=== PATIENT | male | born 1965 | race Caucasian/White ===

== ENCOUNTER → 2017-06-26 17:39 | Outpatient (CLI) | payer BC, SELFPAY ==
--- NOTE | 2017-06-26 | XR_ITS ---
XR shoulder RT min 2V Ordering Physician: Mer Bynum Patient Age: 52 years: Male HISTORY: ITS.REASON: PULLING INJURY TECHNIQUE: 3 views right shoulder COMPARISON : AP chest radiograph FINDINGS Right shoulder is intact no fracture evident. The glenohumeral joint intact. Humeral head and neck intact. Glenoid unremarkable. Mild AC joint arthropathy and irregularity which is perhaps very slightly more evident than on 2014 CXR. Otherwise Upper right lung and apex clear scapula unremarkable IMPRESSION: No fracture nor dislocation Glenohumeral joint is intact. Mild degenerative changes AC joint.
== END ==
PROVIDERS: PCP Nurse Practitioner Family; Visit Provider Nurse Practitioner Family
DX: M25.511 Pain in right shoulder (principal); M75.101 Unspecified rotator cuff tear or rupture of right shoulder, not specified as traumatic
CPT/HCPCS: 73030

== ENCOUNTER 2017-11-05 03:17 | Observation (INO) ==
--- NOTE | 2017-11-05 03:27 | Emergency Department Note ---
ED Disposition Clinical Impression: Lumbar radiculopathy Disposition: Still a Patient Condition on Discharge: Fair - Critical Care Critical Care Time: No Attestation: On , the high probability of a clinically significant, sudden or life threatening deterioration of the following system(s) required my full and direct attention, intervention and personal management. The time I documented below is in addition to time spent performing reported procedures but includes the following listed in this critical care notation. Medical Decision Making - Yunior Inquiry Pt receiving controlled substance: Yes Yunior was queried for this patient: Yes Reference #:: [id number] Risks and benefits of using a controlled substance: were not discussed with pt by me Comment: 3 rxs for gabapentin Vital Signs: 11/05/17 03:17 11/05/17 04:39 Temperature 98.9 F 98.5 F Temperature Source Oral Oral Pulse Rate 89 Pulse Rate [Right Radial] 87 Respiratory Rate 20 20 Blood Pressure 146/86 Blood Pressure [Right Arm] 184/93 Blood Pressure Mean [Right Arm] 123 02 Sat by Pulse Oximetry 100 Oxygen Delivery Method Room Air - Lab Data Lab Results 11/05/17 03:05: WBC 9.6, RBC 4.41 L, Hgb 13.4 L, Hct 37.7 L, MCV 85.5, MCH 30.5 , MCHC 35.7 H, RDW 13.0, Plt Count 306, MPV 7.7, Neut % (Auto) 71.8, Lymph % ( Auto) 21.6, Gray % (Auto) 6.1, Eos % (Auto) 0.3, Baso % (Auto) 0.2, Neut # (Auto ) 6.9, Lymph # (Auto) 2.1, Gray # (Auto) 0.6, Eos # (Auto) 0.0, Baso # (Auto) 0.0 11/05/17 03:05: Sodium 139, Potassium 4.3, Chloride 102, Carbon Dioxide 24, Anion Gap 17.3 H, BUN 26 H, Creatinine 1.22, Estimated Creat Clear 92, Estimated GFR 63, Est GFR ( Amer) 76, Glucose 232 H, Calcium 9.5 Result diagrams: 11/05/17 03:05 11/05/17 03:05 Orders (Tests/Meds): ED MEDICATIONS Generic Name Dose Route Start Last Admin Trade Name Freq PRN Reason Stop Dose Admin Gabapentin 300 mg 11/05/17 09:00 Neurontin 300mg Capsule PO 12/05/17 08:59 TID DONNA Discontinued Medications Generic Name Dose Route Start Last Admin Trade Name Jolly DUNCAN Reason Stop Dose Admin Hydromorphone HCl 1 mg 11/05/17 03:39 11/05/17 03:53 Dilaudid 2mg/Ml Syringe IV 11/05/17 03:40 1 mg ONCE ONE Administration Hydromorphone HCl 1 mg 11/05/17 04:14 11/05/17 04:23 Dilaudid 2mg/Ml Syringe IV 11/05/17 04:15 1 mg ONCE ONE Administration Methylprednisolone Sodium Succinate 125 mg 11/05/17 04:09 11/05/17 04:23 Solu-Medrol 125mg/2ml Vial IV 11/05/17 04:10 125 mg ONCE ONE Administration Ondansetron HCl 4 mg 11/05/17 03:39 11/05/17 03:53 Zofran 4mg/2ml Vial IV 11/05/17 03:40 4 mg ONCE ONE Administration Orphenadrine Citrate 60 mg 11/05/17 03:41 11/05/17 03:53 Norflex 60mg/2ml Vial IV 11/05/17 03:42 60 mg ONCE ONE Administration - Physician Consults Physician Consulted: Yobany Reyes Time: 04:19 Reason -: Admission Comment/Response: Agrees to admit the patient to the hospital. We discussed the patient's clinical information, including history, exam, laboratory and radiology results and ED course. Per hospital procedure, I will write temporary bridge inpatient orders on the patient. Specific orders requested by the admitting physician: Pain control, sliding scale insulin, steroids, gabapentin General Adult HPI - General Chief complaint: Back Pain/Injury Stated complaint: back pain Time Seen by Provider: 11/05/17 03:25 Mode of Arrival: EMS Limitations: No Limitations Description of Symptoms (Recalled from ER Triage Doc. by RN): pt awoke yesterday morning with back pain, was seen at [facility] and diagnosed with sciatic pain. pt has tried 2 lortabs and a muscle relaxer at home with no relief. no injury. - History of Present Illness HPI narrative: Brought in by ambulance for back and left leg pain. Patient says that he sneezed this morning at 5 AM and developed severe pain in his lower back going down his left leg to his left foot. Says that it feels like "[id number]" and additionally also describes it as a "pinched nerve". Prior history of lumbar disc disease with 2 prior back surgeries years ago. He does not remember what the years were. Has had problems with back and leg pain before, but not recently. Says that normally when he gets up in the morning he will cough which will cause some increased back pain but it resolves fairly quickly. He is not currently on any treatment for his back. The incident occurred today while at work. By 7 AM he was in severe pain and went to [facility] emergency department. He says he was there for at least 8 hours. He says he was given 2 injections of morphine which did not help at all and then he was given another medication after that which put him to sleep. He says that he was feeling better by the time of discharge. Severe pain recurred at 2 AM tonight. No loss of bowel or bladder control. No numbness or weakness. - Related Data Home Medications Medication Instructions Recorded Confirmed Atorvastatin Calcium [Atorvastatin 10 mg PO DAILY 11/05/17 11/05/17 10mg Tab] Gabapentin [Gabapentin 100mg Cap] 100 - 200 mg PO DAILY 11/05/17 11/05/17 Hydrocodone/Acetaminophen 1 - 2 tab PO Q4HP PRN 11/05/17 11/05/17 [Hydrocodone-Acetamin 5-325 mg] Insulin Glargine,Hum.rec.anlog 35 unit SQ DAILY 11/05/17 11/05/17 [Lantus Insulin 100units/mL 10mL vial] Lidocaine 1 each TP BIDP PRN 11/05/17 11/05/17 Lisinopril [Lisinopril 20mg Tab] 20 mg PO DAILY 11/05/17 11/05/17 Metformin HCl [Metformin 500mg 1,000 mg PO BID 11/05/17 11/05/17 Tablet] Methocarbamol [Methocarbamol 500mg 1,000 mg PO QID 11/05/17 11/05/17 Tablet] Omeprazole [Omeprazole 20mg Tab] 20 mg PO DAILY 11/05/17 11/05/17 Sitagliptin Phosphate [Januvia] 100 mg PO DAILY 07/08/18 07/08/18 Allergies Allergy/AdvReac Type Severity Reaction Status Date / Time Penicillins [PENICILLINS] Allergy Intermediate I-HIVES Verified 11/05/17 03:21 [facility] History I have reviewed the patient's past medical history: Yes 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: Reports:: Diabetes Mellitus Type 2 Denies:: Cancer, Diabetes Mellitus Type 1, MRSA Amputation: No Fractures: No - Social History Smoking Status: Never smoker Alcohol Intake: never - Psychiatric History Expresses thoughts of harming self/others: None Suicide Plan Description: No Plan ROS Obtained: Yes Systems reviewed as appropriate & no additional complaints - Constitutional Constitutional: Denies fever(s) - Musculoskeletal Musculoskeletal: Reports back pain, Reports other (Left leg pain) - Neurologic Neurologic: Denies numbness, Denies weakness Physical Exam - General General appearance: alert, in distress Comment: Moaning, whimpering - Chest Chest inspection: Present: normal inspection - Respiratory Respiratory exam: Present: normal lung sounds bilaterally. Absent: respiratory distress - Cardiovascular Cardiovascular exam: Present: regular rate, normal rhythm - Abdominal Exam Abdominal exam: Present: soft. Absent: tenderness, guarding, rebound, pulsatile mass - Extremities Exam Extremities exam: Present: normal inspection, full ROM, other (Normal pedal pulses) - Neurological Exam Neurological exam: Present: alert, oriented X3. Absent: motor sensory deficit
[2017-11-05 03:53] LABS: Basophils % 0.2 % (0.1-2.0); Eosinophils % 0.3 % (0.1-12.0); Hematocrit 37.7 % (42.0-52.0); Hemoglobin 13.4 g/dL (14.1-18.0); Lymphocytes # 2.1 K/mm3 (0.7-4.5); Lymphocytes % 21.6 K/mm3 (10-50); Mean Corpuscular HGB Conc 35.7 g/dL (31.8-35.4); Mean Corpuscular Hemoglobin 30.5 pg (27.0-31.2); Mean Corpuscular Volume 85.5 fl (80-94); Mean Platelet Volume 7.7 fl (7.4-10.4); Monocytes # 0.6 K/mm3 (0.1-1.0); Monocytes % 6.1 % (1.7-9.3); Neutrophils # 6.9 K/mm3 (1.8-7.8); Neutrophils % 71.8 % (37.0-80.0); Platelet Count 306 K/mm3 (142-424); Red Blood Count 4.41 M/mm3 (4.60-6.20); White Blood Count 9.6 K/mm3 (4.8-10.8)
[2017-11-05 03:56] LABS: Anion Gap 17.3 mEq/L (5-15); Calcium 9.5 mg/dL (8.5-10.1); Potassium 4.3 mmoL/L (3.5-5.1)
--- NOTE | 2017-11-05 07:07 | History & Physical Report ---
*Admission Date: 11/05/17 *Chief complaint: Severe back pain radiating down left leg *History of present illness: 52-year-old male with history of prior lumbar disc herniations requiring surgery presented to the emergency department early this morning with complaint of neck pain that radiated into the left leg with associated numbness and tingling down to the level of the foot. Symptoms began after patient sneezed the day prior. After sneezing he had onset of severe pain and actually initially sought treatment at [facility] in [place]. After an 8 hour emergency department stay there patient was treated with some pain medication which did improve symptoms slightly and he was discharged home. At approximately 2 AM this morning he awoke with recurrence of severe pain and sought treatment at our emergency department. In our emergency department he was given intravenous Dilaudid as well as muscle relaxants. He continued to have a significant level of pain and decision was made to admit for pain control. Since admission his pain has eased some. He describes both a cramping like sensation in the left hip as well as sensation as if the bone is rubbing bone. He continues to endorse numbness in the top of the foot. [facility] History I have reviewed the patient's past medical history: Yes 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: Reports:: Diabetes Mellitus Type 2, Hyperlipidemia, Hypertension Denies:: Cancer, Diabetes Mellitus Type 1, MRSA Laterality Cases: Bilateral: Other Other Surgeries: Yes: Other (BACK SURGERY X2) Amputation: No Fractures: No - *Social History Educational Level: Completed High School Smoking Status: Never smoker Alcohol Intake: never Occupational Status: employed Housing: house Household Members: spouse - Psychiatric History Expresses thoughts of harming self/others: None Suicide Plan Description: No Plan *Family Hx:: Diabetes, Hyperlipidemia, Hypertension, Kidney Disease Review of Systems - Review of Systems Review of systems:: pertinent systems reviewed and negative unless documented below - *Gastrointestinal Denies change in stools - *Genitourinary Denies difficulty urinating, Denies decreased urination, Denies urinary frequency, Denies urinary incontinence, Denies urinary urgency - *Neurologic Reports numbness, Denies weakness Meds Home Medications Medication Instructions Recorded Confirmed Type Atorvastatin Calcium [Atorvastatin 10 mg PO DAILY 11/05/17 11/05/17 History 10mg Tab] Gabapentin [Gabapentin 100mg Cap] 100 - 200 mg PO DAILY 11/05/17 11/05/17 History Hydrocodone/Acetaminophen 1 - 2 tab PO Q4HP PRN 11/05/17 11/05/17 History [Hydrocodone-Acetamin 5-325 mg] Insulin Glargine,Hum.rec.anlog 35 unit SQ HS 11/05/17 11/05/17 History [Lantus Insulin 100units/mL 10mL vial] Lidocaine 1 each TP BIDP PRN 11/05/17 11/05/17 History Lisinopril [Lisinopril 20mg Tab] 20 mg PO DAILY 11/05/17 11/05/17 History Metformin HCl [Metformin 500mg 1,000 mg PO BID 11/05/17 11/05/17 History Tablet] Methocarbamol [Methocarbamol 500mg 1,000 mg PO QID 11/05/17 11/05/17 History Tablet] Omeprazole [Omeprazole 20mg Tab] 20 mg PO DAILY 11/05/17 11/05/17 History Sitagliptin Phosphate [Januvia] 100 mg PO DAILY 11/05/17 11/05/17 History Allergies Allergy/AdvReac Type Severity Reaction Status Date / Time Penicillins [PENICILLINS] Allergy Intermediate I-HIVES Verified 11/05/17 05:27 Exam Vital signs and Labs for Last 24 Hours: Temp Pulse Resp BP Pulse Ox 97.8 F 72 18 143/79 98 11/05/17 05:16 11/05/17 05:16 11/05/17 05:16 11/05/17 05:16 11/05/17 05:16 Laboratory Results - last 24 hr 11/05/17 03:05: WBC 9.6, RBC 4.41 L, Hgb 13.4 L, Hct 37.7 L, MCV 85.5, MCH 30.5 , MCHC 35.7 H, RDW 13.0, Plt Count 306, MPV 7.7, Neut % (Auto) 71.8, Lymph % ( Auto) 21.6, Howard % (Auto) 6.1, Eos % (Auto) 0.3, Baso % (Auto) 0.2, Neut # (Auto ) 6.9, Lymph # (Auto) 2.1, Howard # (Auto) 0.6, Eos # (Auto) 0.0, Baso # (Auto) 0.0 11/05/17 03:05: Sodium 139, Potassium 4.3, Chloride 102, Carbon Dioxide 24, Anion Gap 17.3 H, BUN 26 H, Creatinine 1.22, Estimated Creat Clear 92, Estimated GFR 63, Est GFR ( Amer) 76, Glucose 232 H, Calcium 9.5 11/05/17 06:11: POC Glucose 235 H I & O for Last 24 hours: Intake & Output 11/02/17 11/03/17 11/04/17 11/05/17 11:59 11:59 11:59 11:59 Weight 198 lb 1 oz Narrative: Patient does not appear to be in severe pain although he is restless. He is able to turn from side to side in the bed. He is able to move the left lower extremity. He has symmetric patellar and Achilles reflexes. Sensation is intact in the right leg. He has decreased sensation in the left leg on the dorsal foot. Strength assessment was not performed due to the patient's pain. H&P: Result - Labs Labs: Short CBC 11/05/17 Range/Units 03:05 WBC 9.6 (4.8-10.8) K/mm3 Hgb 13.4 L (14.1-18.0) g/dL Hct 37.7 L (42.0-52.0) % Plt Count 306 (142-424) K/mm3 BMP 11/05/17 03:05 Sodium 139 Potassium 4.3 Chloride 102 Carbon Dioxide 24 BUN 26 H Creatinine 1.22 Glucose 232 H Calcium 9.5 Assessment and Plan (1) Lumbar radiculopathy Current visit: Yes Status: Acute Category: Medical Code(s): M54.16 - Radiculopathy, lumbar region - Assessment and plan all Dx Assessment and Plan for all problems:: Patient has been admitted. He will be started on gabapentin 100 mg 3 times daily. Give another dose of steroid this afternoon. Sliding scale insulin has been ordered for his diabetes. Continue oral and intravenous narcotics. Continue muscle relaxants. I told the patient he is allowed to get out of bed but would recommend a reclined position in the bed for recovery purposes
--- NOTE | 2017-11-05 13:56 | Pharmacy Consult Notes ---
[facility] Pharmacy VTE Monitoring - Patient Demographics Admission date: 11/05/17 Report Date: 11/05/17 Time: 13:55 Allergies/Adverse Reactions: Patient Allergies Penicillins [PENICILLINS] Allergy (Intermediate, Verified 11/05/17 05:27) I-HIVES Height: 1.68 m Weight: 89.84 kg Patient Problems: Current Active Problems Lumbar radiculopathy (Acute) - VTE Risk Labs: VTE Related Lab Results Hgb 13.4 g/dL (14.1-18.0) L 11/05/17 03:05 Hct 37.7 % (42.0-52.0) L 11/05/17 03:05 Plt Count 306 K/mm3 (142-424) 11/05/17 03:05 BUN 26 mg/dL (7-18) H 11/05/17 03:05 Creatinine 1.22 mg/dL (0.70-1.30) 11/05/17 03:05 Estimated Creat Clear 92 mL/min (0-300) 11/05/17 03:05 Was VTE Risk Assessment Performed: Yes VTE Score: 2 VTE Risk Level: Low Risk - Prophylaxis Location of Applied Device: Bilateral Lower Extremeties - VTE Diagnosis Confirmed Comment: OLIVERIO PAYNE ORDERED
[2017-11-06 07:20] VITALS: BP 107/64
--- NOTE | 2017-11-06 08:17 | Discharge Summary ---
General - General Admission date:: 11/05/17 Discharge date: 11/06/17 HPI HPI: 52-year-old male with history of prior lumbar disc herniations requiring surgery presented to the emergency department early this morning with complaint of neck pain that radiated into the left leg with associated numbness and tingling down to the level of the foot. Symptoms began after patient sneezed the day prior. After sneezing he had onset of severe pain and actually initially sought treatment at [facility] in [place]. After an 8 hour emergency department stay there patient was treated with some pain medication which did improve symptoms slightly and he was discharged home. At approximately 2 AM this morning he awoke with recurrence of severe pain and sought treatment at our emergency department. In our emergency department he was given intravenous Dilaudid as well as muscle relaxants. He continued to have a significant level of pain and decision was made to admit for pain control. Since admission his pain has eased some. He describes both a cramping like sensation in the left hip as well as sensation as if the bone is rubbing bone. He continues to endorse numbness in the top of the foot. Hospital Course Hospital Course: Patient was admitted, intravenous narcotics since steroids were given, he was continued on his medication and rest was obtained in the hospital. He improved slightly, and was able to limp around to go to the restroom as well as have minimal pain when he was in a reclining position with his hip slightly flexed. This morning he has improved somewhat, please see my discharge exam noted below in this document. Plan will be to discharge home with Vicoprofen, higher dose gabapentin and prednisone as noted in the discharge summary, and we will schedule MRI urgently as well as try to get an appointment with Dr. Lin as soon as possible for reevaluation post MRI. Objective Vital signs: Temp Pulse Resp BP Pulse Ox 98.3 F 61 18 107/64 96 11/06/17 07:20 11/06/17 07:20 11/06/17 07:20 11/06/17 07:20 11/06/17 07:20 Narrative: Patient is awake, alert, pleasant, oriented 3. Cardio pulmonary exam unremarkable. Exam of his lower extremities reveals diminished reflexes in the knee and ankle on the left, has 4/5 strength in the left hip flexion, right side is 5/5, significant pain with any degree of straight leg raise testing on the left. His back itself has some muscle spasm around the spine but no evidence of spinal tenderness. Results Labs on day of discharge: Labs from last 24 hours 11/06/17 11/05/17 11/05/17 06:46 20:09 16:39 POC Glucose 186 H 288 H 342 H* 11/05/17 11:06 POC Glucose 300 H DS: Diagnosis - Discharge Diagnosis (1) Lumbar radiculopathy Status: Acute Discharge Plan - Patient Discharge Instructions ACTIVITY: Limited activity, No heavy lifting DIET: continue same diet Additional Instructions: No work until evaluation next week in office - Follow up Plan Follow up with: Dayton Reyes MD [Family Provider] - 11/13/17 Disposition: Home, Self-Long Term Medications: Home Medications Medication Instructions Recorded Confirmed Type Atorvastatin Calcium [Atorvastatin 10 mg PO HS 11/05/17 11/05/17 History 10mg Tab] Gabapentin [Gabapentin 100mg Cap] 100 - 200 mg PO DAILY 11/05/17 11/05/17 History Hydrocodone/Acetaminophen 1 - 2 tab PO Q4HP PRN 11/05/17 11/05/17 History [Hydrocodone-Acetamin 5-325 mg] Insulin Glargine,Hum.rec.anlog 35 unit SQ HS 11/05/17 11/05/17 History [Lantus Insulin 100units/mL 10mL vial] Lidocaine [Lidoderm 5% transdermal 1 each TP Q24H 11/05/17 11/05/17 History patch] Lisinopril [Lisinopril 20mg Tab] 20 mg PO DAILY 11/05/17 11/05/17 History Metformin HCl [Metformin 500mg 1,000 mg PO BID 11/05/17 11/05/17 History Tablet] Methocarbamol [Methocarbamol 500mg 1,000 mg PO QID 11/05/17 11/05/17 History Tablet] Omeprazole [Omeprazole 20mg Tab] 20 mg PO DAILY 11/05/17 11/05/17 History Sitagliptin Phosphate [Januvia] 100 mg PO DAILY 11/05/17 11/05/17 History Prescriptions/Medication Reconciliation: New Gabapentin [Gabapentin 300mg Cap] 300 mg PO TID #30 cap Hydrocodone/Ibuprofen [Hydrocodone-Ibuprofen 7.5-200] 1 - 2 each PO Q6HP PRN #36 tab PRN Reason: Moderate To Severe Pain predniSONE [Deltasone 20mg tablet] 20 mg PO BID 7 Days #14 tab Continue Lisinopril [Lisinopril 20mg Tab] 20 mg PO DAILY Atorvastatin Calcium [Atorvastatin 10mg Tab] 10 mg PO HS Sitagliptin Phosphate [Januvia] 100 mg PO DAILY Insulin Glargine,Hum.rec.anlog [Lantus Insulin 100units/mL 10mL vial] 35 unit SQ HS Metformin HCl [Metformin 500mg Tablet] 1,000 mg PO BID Omeprazole [Omeprazole 20mg Tab] 20 mg PO DAILY Methocarbamol [Methocarbamol 500mg Tablet] 1,000 mg PO QID Lidocaine [Lidoderm 5% transdermal patch] 1 each TP Q24H Discontinued Gabapentin [Gabapentin 100mg Cap] 100 - 200 mg PO DAILY Hydrocodone/Acetaminophen [Hydrocodone-Acetamin 5-325 mg] 1 - 2 tab PO Q4HP PRN PRN Reason: PAIN
== END 2017-11-06 16:18 | disposition home or self-care (01) ==
LOC: ER 03:17 → 2ND 03:17
PROVIDERS: ADMIT Family Medicine; ATTEND Internal Medicine Adolescent Medicine
CPT/HCPCS: 72158; 76376; 80048; 82962; 85025; 96372; 96374; 96376; 99283; A9576; G0378; J2405

== ENCOUNTER 2018-01-12 11:00 | Outpatient (RCR) | payer BC, SELFPAY ==
--- NOTE | 2017-12-13 11:36 | HMH.PTOPEV ---
PT Outpatient Evaluation Rehab PT Outpatient Evaluation Start: 12/13/17 10:44 Freq: Status: Active Protocol: Document 12/13/17 11:23 DIANE (Rec: 12/13/17 11:36 DIANE [id number]) Electronically Signed By Delbert Haynes, PT 12/13/17 11:23 Outpatient Therapy Subjective History Subjective History Pt reports acute exacerbation of LBP beginning on 11/04/17 with a 'sneeze'. Pt reports immediate and severe onset of L sided LBP, with radicular s/ s down L LE to foot. Pt reports h/o lumbar spine/LBP w /sx's in 1999, and 2011-lumbar laminectomy. Pt reports this is the most severe episode of LBP since previous sx. Chief Complaint Pain Spasms Stiff Paresthesia Weakness Symptom Type Ache Throb Sharp Dull Stabbing Burning Numbness Tingling Shooting Symptoms Relieved By Rest/Positioning Ice Prescription Meds Symptoms Aggravated By Bending/Stooping Physical Activity Twisting Walking Lifting Prior Functional Limitations None Current Functional Limitations Housework Standing Walking Bending/Stooping Symptom Description Constant but Variable Level of pain today (0-10) 5 Pain scale - at its best (0-10) 2 Pain scale - at its worst (0-10) 10 Lumbopelvic Eval Posture Thoracic Spine Posture Standing Position Neutral Lumbar Spine Posture Standing Position Neutral Assistive device Assistive Devices None / NA Gait Observation General Gait Pattern Observation Antalgic Gait Wide Based Gait Palapation tenderness left lumbar spinal tenderness Yes: 2/4 paraspinal tenderness Yes: 2-3/4 buttock tenderness Yes: 3/4 Lumbar/Sacral Palpation Findings Tenderness Spasm Muscle Guarding Lumbar/Sacral Palp
== END 2018-01-12 11:01 | disposition home or self-care (01) ==
LOC: PT 11:00
PROVIDERS: Family Provider Internal Medicine Adolescent Medicine; PCP Nurse Practitioner Family; Visit Provider Internal Medicine Adolescent Medicine
DX: G62.9 Polyneuropathy, unspecified (principal)
CPT/HCPCS: 97010; 97012; 97014; 97035; 97110; 97140; 97163; G0283

== ENCOUNTER → 2018-01-18 14:38 | Outpatient (POV) | payer BC, SELFPAY | PROVIDERS: Visit Provider Neurological Surgery | DX: Z00.00 Encounter for general adult medical examination without abnormal findings (principal) ==

== ENCOUNTER → 2018-06-25 06:21 | Outpatient (CLI) | payer BC, SELFPAY ==
--- NOTE | 2018-06-25 06:31 | NM_ITS ---
CARDIOLITE SPECT MYOCARDIAL PERFUSION SCAN, REST AND STRESS: EXERCISE STRESS [facility] REVIEW QGS EF AND WALL MOTION EVALUATION: QPS - PERFUSION EVALUATION HISTORY: Chest pain, SOB, HTN, DM, Fatigue DOSE: 10.36 mCi technetium 99m mibi intravenously at rest followed by 30.7 mCi technetium 99m mibi following the intravenous ministration of 0.4 mg of Lexiscan. Resting blood pressure is 158/92. Stress blood pressure 154/87. FINDINGS: Ejection fraction is calculated to be 50%. Stress images reveal decreased activity in a portion the inferior wall and apical lateral wall while rest images reveal uniform myocardial activity. Gated images calculated ejection fraction of 50% with a large amount of apical lateral hypokinesis IMPRESSION: Abnormal stress test with inferior apical and apical lateral hypokinesis accompanied by reversible ischemia. High risk abnormal stress test
--- NOTE | 2018-06-25 07:41 | HMH.ITSHM ---
Current Home Medications as stated by this patient TioTim Farr or compliance representative. []LISINOPRIL JANUVIA OMEPRAZOLE ASA METFORMIN GABAPENTIN FENOFIBRATE ATORVASTATIN DULOXETINE OMEGA 3
== END ==
PROVIDERS: PCP Internal Medicine Adolescent Medicine; Visit Provider Internal Medicine Adolescent Medicine
DX: R07.2 Precordial pain (principal)
CPT/HCPCS: 78452; 93017; A9502; J2785

== ENCOUNTER → 2018-09-18 09:44 | Outpatient (CLI) | payer BC, SELFPAY ==
[2018-09-18 11:03] LABS: Anion Gap 14.5 mEq/L (5-15); Blood Urea Nitrogen 24 mg/dL (7-18); Calcium 9.1 mg/dL (8.5-10.1); Carbon Dioxide 26 mmol/L (21.0-32.0); Chloride 96 mmol/L (98-107); Creatinine,Serum 1.22 mg/dL (0.70-1.30); Estimated Glomerular Filt Rate 62 ml/min (>60); GFR (African American) 75 ML/MIN (>60); Potassium 4.5 mmoL/L (3.5-5.1); Sodium 132 mmol/L (136-145)
[2018-09-18 11:09] LABS: Glucose 403 mg/dL (74-106)
== END ==
PROVIDERS: Visit Provider Nurse Practitioner Family
DX: I25.10 Atherosclerotic heart disease of native coronary artery without angina pectoris (principal); R00.0 Tachycardia, unspecified
CPT/HCPCS: 36415; 80048

== ENCOUNTER → 2018-11-19 11:39 | Outpatient (CLI) | payer BC, SELFPAY ==
[2018-11-19 12:39] LABS: Anion Gap 13.3 mEq/L (5-15); Blood Urea Nitrogen 26 mg/dL (7-18); Carbon Dioxide 28 mmol/L (21.0-32.0); Chloride 98 mmol/L (98-107); Creatinine,Serum 1.28 mg/dL (0.70-1.30); Estimated Glomerular Filt Rate 59 ml/min (>60); GFR (African American) 71 ML/MIN (>60); Glucose 269 mg/dL (74-106); Potassium 4.3 mmoL/L (3.5-5.1); Sodium 135 mmol/L (136-145)
== END ==
PROVIDERS: Visit Provider Nurse Practitioner Family
DX: R06.02 Shortness of breath (principal); I20.9 Angina pectoris, unspecified; R94.31 Abnormal electrocardiogram [ECG] [EKG]; E78.2 Mixed hyperlipidemia; I10 Essential (primary) hypertension; K21.9 Gastro-esophageal reflux disease without esophagitis
CPT/HCPCS: 36415; 80048

== ENCOUNTER → 2019-01-22 09:40 | Outpatient (CLI) | payer BC, SELFPAY ==
[2019-01-22 15:12] LABS: Hemoglobin A1C 12.2 % (0.0-7.0)
== END ==
PROVIDERS: PCP Internal Medicine Adolescent Medicine; Visit Provider Internal Medicine Adolescent Medicine
DX: E11.9 Type 2 diabetes mellitus without complications (principal); Z79.84 Long term (current) use of oral hypoglycemic drugs
CPT/HCPCS: 36415; 83036

== ENCOUNTER → 2019-01-29 09:08 | Outpatient (CLI) | payer BC, SELFPAY ==
--- NOTE | 2019-01-29 09:11 | MR_ITS ---
PROCEDURE: MR LUMBAR SPINE WO/W CON CLINICAL INDICATION: BACK PAIN, DDD, STATUS POST MICRODISECTOMY COMPARISON: SPLUMBWW MR lumbar spine wo/w con from 11/06/2017 TECHNIQUE: Standard multiplanar multiecho sequences are performed without contrast. 3-D MIP and myelographic images are also rendered and reviewed 19 cc of ProHance contrast was injected intravenously. FINDINGS: Alignment and vertebral body heights appear normal. To maintain consistency the transitional vertebra will be considered a partially sacralized L5 vertebra. Signal from the osseous marrow elements are normal except for mild subchondral type 2 degenerative changes inferiorly at the L4 level. There has been further loss of disc space height which is now severe loss of height at L4-5 which is the site of prior surgery on the left. The remainder of the disc space heights are normal. L4-5 shows a residual mild nonenhancing ventral extradural defect which is probably some residual disc material suggesting bulge. There is some enhancing tissue within the left lateral recess at this level. This partially surrounds the descending left L5 nerve root in the lateral recess. There is however greater effacement of the epidural fat in the left L4-5 foramina with the left L5 facet possibly causing some mass effect upon the left exiting L4 nerve root in the foramina, 12. From series 2. The remainder of the foraminal areas are normal. The remainder of the disc levels are normal. There are no other areas of abnormal enhancement. The conus and cauda equina nerve roots appear unremarkable. Visualized paraspinal areas are unremarkable. IMPRESSION: L4-5 shows further degenerative loss of disc space height with a residual nonenhancing mild bulge. There is however severe degree of left L4-5 foraminal stenosis as discussed above with possible mass effect on the left L4 nerve root in the foramina. L4-5 shows postoperative enhancing fibrosis in the left lateral recess. Dictated by: Ezequiel Wagoner 01/29/2019 11:46 Electronically signed by Ezequiel Wagoner in [place] 01/29/2019 11:46
== END ==
PROVIDERS: PCP Internal Medicine Adolescent Medicine; Visit Provider Physician Assistant Medical
DX: M51.36 Other intervertebral disc degeneration, lumbar region (principal); M54.9 Dorsalgia, unspecified; M48.062 Spinal stenosis, lumbar region with neurogenic claudication; R30.0 Dysuria; Z98.890 Other specified postprocedural states
CPT/HCPCS: 72158; 76376; A9576

== ENCOUNTER → 2019-03-18 12:36 | Outpatient (POV) | payer BC, SELFPAY ==
[2019-03-18 13:01] VITALS: BP 136/83; PULSE 74; RESP 18; O2SAT 98; BMI 32.8
--- NOTE | 2019-03-18 14:31 | HMH.PMCON ---
Assessment and Plan (1) Postlaminectomy syndrome Current visit: Yes Status: Chronic Category: Medical Code(s): M96.1 - Postlaminectomy syndrome, not elsewhere classified (2) Lumbar radiculopathy Current visit: No Status: Chronic Category: Medical Code(s): M54.16 - Radiculopathy, lumbar region - Assessment and plan all Dx Assessment and Plan for all problems:: We will schedule an L4-L5 lumbar epidural steroid injection the patient. Patient is not on any anticoagulation therapy. Patient continuing a home stretching program and anti-inflammatories. I will follow-up with the patient after his injection reassess his symptoms at that time he has been instructed to call the office if he has any issues prior to his next appointment. Dr. Galarza has reviewed this note and agrees with this plan of care. This note was dictated using voice recognition software and may contain errors or omissions HPI - Data of Consult Consult date: 03/18/19 Requesting Physician: Kathy Espinoza APRN Primary Care Provider: Anthony Gallegos MD - Consult Narrative Reason for consult: Back pain History of present illness: Mr. Farr is a 53 year old male who presents today for consultation in regards to his low back and leg pain. Patient has had 2 L4-L5 lumbar discectomies by Dr. Lin. At this time he is not a surgical candidate however he is having back pain along with numbness tingling burning and pain down his left leg all the way to his toes. Patient was sent here by Dr. Lin for epidural steroid injections. I do believe that would be beneficial for him. Patient rates his pain today a 6 out of 10. He is having difficulty with continuing to work. Patient currently continuing a stretching program however he is also completed physical therapy. Patient is on anti-inflammatories. Patient is currently on gabapentin as well. Patient is not on any anticoagulation therapy. He has had pain for several years. CC: Kathy Espinoza APRN [facility] History I have reviewed the patient's past medical history: Yes 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: Reports:: Diabetes Mellitus Type 2, Hyperlipidemia, Hypertension Denies:: Cancer, Diabetes Mellitus Type 1, MRSA, Seizures *Have you ever received a pneumonia vaccine?: No *Have you received a flu vaccine this season?: No Laterality Cases: Bilateral: Other Other Surgeries: Yes: Cardiac Catheterization, Coronary Stent, Other Amputation: No Fractures: No - *Social History Smoking Status: Never smoker Alcohol Intake: never Substance Use Type: denies use *Occupational Status:: employed Housing: house Household Members: spouse *Travel in the last 8 weeks: None Family Hx:: Diabetes, Hyperlipidemia, Hypertension, Kidney Disease, Coronary Artery Disease, Heart Attack Review of Systems - Review of Systems ROS General: no recent weight change, no fever, no sleep disturbances Respiratory: no cough, no shortness of air, no recurring pulmonary infections Cardiovascular/Peripheral Vascular: No chest pain, No palpitations, no edema, no shortness of breath. Gastrointestinal: no new onset incontinence, normal bowel movements reported Genitourinary: no new onset incontinence Musculoskeletal: Back pain, left leg pain Psychiatric: normal mood/ affect Neurological: [denies new onset weakness in extremities], [denies new onset balance issues] Meds Home Medications Medication Instructions Recorded Confirmed Type Insulin Glargine,Hum.rec.anlog 75 unit SQ HS 11/05/17 03/18/19 History [Lantus Insulin 100units/mL 10mL vial] Lisinopril [Lisinopril 20mg Tab] 20 mg PO DAILY 11/05/17 03/18/19 History Metformin HCl [Glucophage 500mg 1,000 mg PO BID 11/05/17 03/18/19 History Tablet] Omeprazole [Omeprazole 20mg Tab] 20 mg PO DAILY 11/05/17 03/18/19 History aspirin 81 mg tablet,delayed 81 mg PO DAILY 07/04/18 03/18/19 History release duloxetine 60 mg capsule,delayed 60 mg PO DAILY 07/04/18 03/18/19 History
--- NOTE | 2019-03-18 14:34 | P.CONS_ITS ---
Assessment and Plan (1) Postlaminectomy syndrome Current visit: Yes Status: Chronic Category: Medical Code(s): M96.1 - Postlaminectomy syndrome, not elsewhere classified (2) Lumbar radiculopathy Current visit: No Status: Chronic Category: Medical Code(s): M54.16 - Radiculopathy, lumbar region - Assessment and plan all Dx Assessment and Plan for all problems:: We will schedule an L4-L5 lumbar epidural steroid injection the patient. Patient is not on any anticoagulation therapy. Patient continuing a home stretching program and anti-inflammatories. I will follow-up with the patient after his injection reassess his symptoms at that time he has been instructed to call the office if he has any issues prior to his next appointment. Dr. Galarza has reviewed this note and agrees with this plan of care. This note was dictated using voice recognition software and may contain errors or omissions HPI - Data of Consult Consult date: 03/18/19 Requesting Physician: Kathy Espinoza APRN Primary Care Provider: Anthony Gallegos MD - Consult Narrative Reason for consult: Back pain History of present illness: Mr. Farr is a 53 year old male who presents today for consultation in regards to his low back and leg pain. Patient has had 2 L4-L5 lumbar discectomies by Dr. Lin. At this time he is not a surgical candidate however he is having back pain along with numbness tingling burning and pain down his left leg all the way to his toes. Patient was sent here by Dr. Lin for epidural steroid injections. I do believe that would be beneficial for him. Patient rates his pain today a 6 out of 10. He is having difficulty with continuing to work. Patient currently continuing a stretching program however he is also completed physical therapy. Patient is on anti-inflammatories. Patient is currently on gabapentin as well. Patient is not on any anticoagulation therapy. He has had pain for several years. CC: Kathy Espinoza APRN [facility] History I have reviewed the patient's past medical history: Yes 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: Reports:: Diabetes Mellitus Type 2, Hyperlipidemia, Hypertension Denies:: Cancer, Diabetes Mellitus Type 1, MRSA, Seizures *Have you ever received a pneumonia vaccine?: No *Have you received a flu vaccine this season?: No Laterality Cases: Bilateral: Other Other Surgeries: Yes: Cardiac Catheterization, Coronary Stent, Other Amputation: No Fractures: No - *Social History Smoking Status: Never smoker Alcohol Intake: never Substance Use Type: denies use *Occupational Status:: employed Housing: house Household Members: spouse *Travel in the last 8 weeks: None Family Hx:: Diabetes, Hyperlipidemia, Hypertension, Kidney Disease, Coronary Artery Disease, Heart Attack Review of Systems - Review of Systems ROS General: no recent weight change, no fever, no sleep disturbances Respiratory: no cough, no shortness of air, no recurring pulmonary infections Cardiovascular/Peripheral Vascular: No chest pain, No palpitations, no edema, no shortness of breath. Gastrointestinal: no new onset incontinence, normal bowel movements reported Genitourinary: no new onset incontinence Musculoskeletal: Back pain, left leg pain Psychiatric: normal mood/ affect Neurological: [denies new onset weakness in extremities], [denies new onset balance issues] Meds Home Medications Medication Instructions Recorded Confirmed Type Insulin Glargine,Hum.rec.anlog 75 unit SQ HS 11/05/17 03/18/19 H
== END ==
PROVIDERS: PCP Internal Medicine Adolescent Medicine; Visit Provider Clinical Nurse Specialist Family Health
DX: M96.1 Postlaminectomy syndrome, not elsewhere classified (principal); M54.16 Radiculopathy, lumbar region
CPT/HCPCS: 99202

== ENCOUNTER → 2019-05-06 09:03 | Outpatient (POV) | payer BC, SELFPAY ==
[2019-05-06 09:17] VITALS: BP 144/85; PULSE 82; RESP 18; O2SAT 98; BMI 32.8
--- NOTE | 2019-05-06 09:48 | HMH.PAINSOAP ---
[facility] Pain Management SOAP Note Subjective:: Patient is a pleasant 54-year-old white male who presents today for follow-up after lumbar epidural steroid injection. Patient got no relief with his injection he rates his pain 8 out of 10 most of his pain in his low back and down his left leg. He has numbness and tingling along with swelling in that leg. He is also having groin pain secondary to his postlaminectomy. Patient has had [address] Lin. Patient is on [place] and gabapentin and Cymbalta but he would like to come off of his pain medication. He states that he has been unable to work since November he would like to return to work. Patient and I had a long discussion about a neurostimulator as he is interested in pursuing this. ROS General: no recent weight change, no fever, no sleep disturbances Respiratory: no cough, no shortness of air, no recurring pulmonary infections Cardiovascular/Peripheral Vascular: No chest pain, No palpitations, no edema, no shortness of breath. Gastrointestinal: no new onset incontinence, normal bowel movements reported Genitourinary: no new onset incontinence Musculoskeletal: Back pain, leg pain Psychiatric: normal mood/ affect Neurological: [denies new onset weakness in extremities], [denies new onset balance issues] Objective:: Physical Exam General: Alert and oriented x3, no acute distress, pleasant and cooperative, [on room air] Lungs: Resps E/U, Symmetrical chest expansion, Eyes: PERRL Musculoskeletal: Flexion and extension of lumbar spine somewhat guarded secondary to pain, deep tendon reflexes normal, strength in upper and lower extremities [5/5], [abnormal gait noted] Neurological: speech clear, credit risk specialist equal, no gross sensory deficits Assessment:: Degenerative disc disease lumbar spine with lumbar radiculopathy symptoms, postlaminectomy syndrome Plan:: We will schedule the patient for psychological evaluation to determine if he is a candidate for neurostimulator if he is we will move forward with a [employer] neurostimulator trial. Patient was given information in regards to this all of his questions were answered. Patient's been instructed to call the office if he has any additional questions prior to his next appointment. Dr. Galarza has reviewed this note and agrees with this plan of care. This note was dictated using voice recognition software and may contain errors or omissions [facility] History I have reviewed the patient's past medical history: Yes 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: Reports:: Diabetes Mellitus Type 2, Hyperlipidemia, Hypertension Denies:: Cancer, Diabetes Mellitus Type 1, MRSA, Seizures *Have you ever received a pneumonia vaccine?: Yes *Have you received a flu vaccine this season?: Yes Laterality Cases: Bilateral: Other Other Surgeries: Yes: Cardiac Catheterization, Coronary Stent, Other Amputation: No Fractures: No - *Social History Smoking Status: Never smoker Alcohol Intake: never Substance Use Type: denies use *Occupational Status:: other Housing: house Household Members: spouse *Travel in the last 8 weeks: None Family Hx:: Diabetes, Hyperlipidemia, Hypertension, Kidney Disease, Coronary Artery Disease, Heart Attack
== END ==
PROVIDERS: PCP Internal Medicine Adolescent Medicine; Visit Provider Clinical Nurse Specialist Family Health
DX: M51.16 Intervertebral disc disorders with radiculopathy, lumbar region (principal); M96.1 Postlaminectomy syndrome, not elsewhere classified
CPT/HCPCS: 99212

== ENCOUNTER → 2019-05-20 06:31 | Outpatient (CLI) | payer BC, SELFPAY ==
--- NOTE | 2019-05-20 | CA_ITS ---
APPROVED REPORT Exam: Pharmacologic Technologist: Jennyfer Saez, Ht: 5 ft 7 in Wt: 208 lbs BSA: 2.06 m2 HR: 72 bpm BP: 100/76 mmHg Rhythm: Sinus Indications: Chest pain 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 Medications: Lisinopril,,,,, Asa,,,,, Metformin,,,,, Hydrocodone,,,,, Gabapentin,,,,, Lasix,,,,, INSULIN,,,,, Lipitor,,,,, Plavix,,,,, DulOXETINE,,,,, FeNOfibrate,,,,, Glargine,,,,, Allergies: PCN Cardiac Risk Factors: HTN, Hyperlipidemia, Diabetes (insulin), FHX of CAD Stress Test Details Test: LEXISCAN HR Resting HR: 75 bpm Max Heart Rate (APMHR): 167 bpm Max HR Achieved: 102 bpm Target HR (85% APMHR): 141 bpm % of APMHR: 61 Recovery HR: 95 bpm BP Resting BP: 100/76 mmHg Max BP: 119/70 mmHg Recovery BP: 109.0/63.0 mmHg ECG Resting ECG: Sinus Rhythm Clinical Exercise duration: 04:02 min Highest Stage Achieved: Exercise capacity: 1.0 METs Stress ECG Conclusion Lexiscan portion completed. No SOB or CP noted. Patient c/o dizziness at peak infusion which resolved in recovery. Occasional PVC and PAC. Less than 1.5mm ST Depression. Imaged to follow. Test Summary REST 02:02 . . 75 . 100/ 76 . . Stage 1 01:00 . . 97 . 113/ 54 . . Stage 2 01:00 . . 99 . 99/ 58 . . Stage 3 01:00 . . 94 . 105/ 70 . . Stage 4 01:00 . . 91 . 110/ 68 . . Stage 4 01:02 . . 90 . 110/ 68 . Stop exercise at 04:02 RECOVERY 01:00 . . 94 . 109/ 63 . . RECOVERY 02:00 . . 89 . 107/ 68 . . RECOVERY 03:00 . . 88 . 114/ 69 . . RECOVERY 04:00 . . 87 . 105/ 68 . . RECOVERY 04:06 . . 88 . 105/ 68 . . Electronically signed by : Robin Alonso, 05/20/2019 19:28:27
--- NOTE | 2019-05-20 06:37 | CA_ITS ---
APPROVED REPORT EXAM: Comprehensive 2D, Doppler, and color-flow Echocardiogram Line Rider: Paige Horvath CRT Ht: 5 ft 7 in Wt: 213lbs BSA: 2.08 BP: 109/76 mmHg Indications: cp, htn, dm, sob, hld, stents 2D Dimensions LVOT 1.88 cm (M/F) 1.5-2.5 M-Mode Dimensions RVDd 2.05 cm (0.9-2.6) LVDd 5.35 cm (3.5-5.7) LVDs 3.83 cm (3.5-5.7) IVSd 1.09 cm (0.6-1.1) PWd 0.66 cm (0.6-1.1) EF (Teich) 54.40% FS 28.40% EDV (Teich) 138.30 mL ESV (Teich) 63.10 mL LV Diastology E/A Ratio 1.15 Mitral Valve MV A Velocity 66.00 (40-130 cm/s) Left Ventricle Left atrium is mildly enlarged, left ventricle is normal size, mild concentric left ventricular hypertrophy, visually estimated ejection fraction 55% with no regional wall motion abnormality, endocardial surfaces are poorly visualized. Diastolic parameters are inconclusive. Right Ventricle Right atrium and right ventricle is mildly enlarged with normal contractility. Aortic Valve Aortic valve is minimally thickened and fibrosed. Mitral Valve Mitral valve is grossly normal, there is mild mitral regurgitation. Tricuspid Valve Tricuspid valve is grossly normal, there is mild tricuspid regurgitation. Tricuspid regurgitation jet velocity is inadequate for calculation of the right ventricular systolic pressure. Pulmonic Valve Pulmonic valve is poorly visualized. Great Vessels Aortic root is normal size. Pericardium Anterior echo-free space seen. Conclusion 1. Technically difficult study because of the patient fact in poor acoustic windows, endocardial surfaces are poorly visualized. Normal left ventricular size, preserved left ventricular systolic function, visually estimated ejection fraction 55% with no obvious regional wall motion abnormality as described above diastolic parameters are inconclusive. 2. Mildly enlarged right ventricle with normal contractility. 3. Mild mitral and tricuspid regurgitation. 4. Anterior echo-free space seen. Electronically signed by : Robin Alonso, 05/21/2019 06:08:30
--- NOTE | 2019-05-20 06:45 | NM_ITS ---
APPROVED REPORT Exam: Nuclear Stress Test Indication: Chest pain, SOB, HTN, DM, High cholesterol, Family history, CAD Patient Location: Outpatient Stress Tech: [place] Tech:Khalida Machado, ARRT, RT (R)(N) Ht: 5 ft 7 in Wt: 208 lbs HR: 72 bpm BP: 100/76 mmHg BSA: 2.06 m2 BMI: 32.5 History: Chest pain, SOB, HTN, DM, High cholesterol, Family history, CAD Procedure: Patient received a 0.4 mg of intravenous Lexiscan, resting heart rate 72 bpm, resting blood pressure 100/76 mmHg, with Lexiscan maximum heart rate achived was 101 bpm which is Less than 85 % of the maximum predicted heart rate and blood pressure was 113/54 mmHg. With Lexiscan, patient denied any complaint of chest pain. Electrocardiogram Resting electrocardiogram showed sinus rhythm, with Lexiscan there is less than 1.[address] segment depression noted from the baseline EKG. The EKG portion of the Lexiscan Myoview is nondiagnostic. Cardiac Stress and Resting SPECT Images: Cardiac Stress and Resting SPECT images were obtained using technetium 99m Myoview 30.4 mCi stress and 10.11 mCi at rest. Gated SPECT with analysis of segmental wall motion and calculation of the ejection fraction also done. Cardiac stress and resting SPECT images show uniform myocardial activity without segmental perfusion abnormality, computer derived ejection fraction 56% with no regional wall motion abnormality, right ventricle is normal size and contractility. Conclusion: 1. The EKG portion of the Lexiscan Myoview is nondiagnostic. 2. No scintigraphic evidence of reversible ischemia seen, computer derived ejection fraction is 56% with no regional wall motion abnormality, right ventricle is normal size and contractility. 3. Normal Lexiscan Myoview study. Electronically signed by : Robin Alonso, 05/20/2019 19:30:15
--- NOTE | 2019-05-20 09:22 | HMH.ITSHM ---
Current Home Medications as stated by this patient TioTim Farr or patient service representative. []SITAGLIPTIN RANLOAZINE OMEGA 3 NITRO LISINOPRIL HYDORCODONE GABAPENTIN FUROSEMIDE FENOFIBRATE DULOXETINE BISOPROLOL ATORVASTATIN OMEPRAZOLE ASA METFORMIN INSULIN CLOPIDOGREL
== END ==
PROVIDERS: PCP Internal Medicine Adolescent Medicine; Visit Provider Internal Medicine
DX: I25.10 Atherosclerotic heart disease of native coronary artery without angina pectoris (principal)
CPT/HCPCS: 78452; 93017; 93306; A9502; J2785

== ENCOUNTER → 2019-10-24 14:48 | Outpatient (CLI) | payer OTHER, SELFPAY ==
[2019-10-24 15:09] LABS: Basophils % 0.7 % (0.1-2.0); Eosinophils # 0.2 K/mm3 (0.0-0.4); Eosinophils % 2.9 % (0.1-12.0); Hematocrit 41.2 % (42.0-52.0); Hemoglobin 12.7 g/dL (14.1-18.0); Lymphocytes # 1.7 K/mm3 (0.7-4.5); Lymphocytes % 25.8 % (10-50); Mean Corpuscular HGB Conc 30.7 g/dL (31.8-35.4); Mean Corpuscular Volume 94.2 fl (80-94); Mean Platelet Volume 8.6 fl (7.4-10.4); Monocytes # 0.5 K/mm3 (0.1-1.0); Monocytes % 7.6 % (1.7-9.3); Neutrophils # 4.1 K/mm3 (1.8-7.8); Neutrophils % 63.1 % (37.0-80.0); Platelet Count 268 K/mm3 (142-424); Red Blood Count 4.37 M/mm3 (4.60-6.20); Red Cell Distribution Width 13.8 % (11.5-17.5); White Blood Count 6.4 K/mm3 (4.8-10.8)
[2019-10-24 15:48] LABS: Chloride 99 mmol/L (98-107); Potassium 4.5 mmoL/L (3.5-5.1); Sodium 132 mmol/L (136-145)
[2019-10-24 15:51] LABS: Anion Gap 11.5 mEq/L (5-15); Blood Urea Nitrogen 18 mg/dl (9-20); Carbon Dioxide 26 mmol/L (22.0-30.0); Estimated Glomerular Filt Rate 70 ml/min (>60); GFR (African American) 85 ML/MIN (>60)
[2019-10-24 15:52] LABS: Calcium 8.7 mg/dl (8.4-10.2)
[2019-10-24 16:14] LABS: Coronavirus 19 IgG Antibody Negative (Negative); Coronavirus 19 IgM Antibody Negative (Negative)
[2019-10-24 17:08] LABS: Glucose 476 mg/dl (74-100)
== END ==
PROVIDERS: Visit Provider Anesthesiology
DX: Z01.818 Encounter for other preprocedural examination (principal); M51.36 Other intervertebral disc degeneration, lumbar region
CPT/HCPCS: 36415; 80048; 85025; 86328

== ENCOUNTER 2019-10-25 07:18 | Day surgery (SDC) | payer OTHER, SELFPAY ==
--- NOTE | 2019-10-23 09:58 | SUR.PREOP ---
10/23/2019 @ 1000--PHONE CALL MADE TO PATIENT. PATIENT UNDERSTANDS THAT LAB WORK AND COVID TESTING NEEDS TO BE COMPLETED BEFORE 1800 ON 10/24/2019. PATIENT UNDERSTANDS IF LAB WORK AND COVID-19 TESTS ARE NOT COMPLETED BY 12PM ON THAT DATE, THE SURGERY SCHEDULED WILL BE CANCELLED AND RESCHEDULED FOR ANOTHER TIME.
[2019-10-23 11:41] VITALS: BMI 32.3
[2019-10-25] VITALS (8 sets, daily range): BP systolic 84–154; BP diastolic 44–90; PULSE 57–77; RESP 18–20; TEMP 36.4–36.7; O2SAT 93–100
--- NOTE | 2019-10-25 08:21 | P.PN_ITS ---
[facility] Anesthesia Checklist - Patient Identification Patient Identification: Arm Band, Verbal (Name & ) - Structural Data Admitted From: Home Planned Operative Procedure/s: Neurstimulator lead trial Consent for Planned Operative Procedure(s) Verified: Yes Verified Documents: Surgical Consent, History and Physical - NPO Status Verified Time NPO: 21:30 - Chart Verification Results Verified: CBC, BMP, PT, PTT, INR - Additional verifications Anesthesia Reactions: No Hx Blood Transfusions: No Blood Transfusion Reaction: No - Airway Assessment C-Spine Mobility Assessed: Yes TMJ Mobility Assessed: Yes Dentition: Partials (upper) - Neurological Assessment Level of Consciousness: Awake, Alert, Appropriate, Follows Commands Hx Seizures: No Numbness or tingling in extremities: No - Anesthesia Plan Anesthesia Risk discussed: Yes Anesthesia Plan: Verified ASA Class: III Anesthesia Type: MAC [facility] History I have reviewed the patient's past medical history: Yes 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: Reports:: Diabetes Mellitus Type 2, Gastroesophageal Reflux Disease(GERD), Hyperlipidemia, Hypertension Denies:: Cancer, Diabetes Mellitus Type 1, Internal Pacemaker, MRSA, Seizures *Have you ever received a pneumonia vaccine?: No *Have you received a flu vaccine this season?: No Other 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: Denies: Blood Transfusion Reaction Comment:: obesity Anesthesia experience/problems:: no prior complications Laterality Cases: Bilateral: Other Other Surgeries: Yes: Cardiac Catheterization, Coronary Stent (x2), Other (Lumbar back sxX3). No: Pacemaker Amputation: No Fractures: No - *Social History Educational Level: Completed High School Smoking Status: Never smoker Alcohol Intake: current Alcohol Intake Frequency:: holidays/special occasions only Substance Use Type: denies use *Occupational Status:: disabled Housing: house Household Members: spouse *Travel in the last 8 weeks: None Family Hx:: Coronary Artery Disease, Diabetes, Hyperlipidemia, Hypertension
--- NOTE | 2019-10-25 08:54 | P.OP_ITS ---
Date of procedure: 10/25/19 Pre-op Diagnosis:: Postlaminectomy syndrome lumbar spine with lumbar radicular symptoms Post-op Diagnosis:: Same Procedure performed:: Spinal cord stimulator trial with epidural lead placement x2 Surgeon:: Nick Galarza MD CONSULTANTS INTERN:: Hugo Roberts Anesthesia: MAC Estimated blood loss (mL): 1 Clinical Note:: Patient is a pleasant 54-year-old white male who we are treating for low back pain with lumbar radicular symptoms. He is failed all previous conservative therapy including previous surgery, injections, physical therapy and oral medications. He is currently on [place], gabapentin and Cymbalta. He would like to come off this medication. He only takes [place] as needed. He has increased pain in his low back and down his legs left greater than right with increased activity. We will plan on a spinal cord stimulator trial today to see if this will help him with his pain symptoms. He has had a successful psychological e valuation. Has been off of his Plavix for 7 days. Operative findings:: None Operative note:: Informed consent was obtained and the risk and benefits of the procedure were explained to the patient. Patient was taken to the operating room. Patient was placed prone on the procedure table. He was prepped and draped in sterile fashion. C-arm fluoroscopy was used to view the lumbar spine. The skin and subcutaneous tissues were anesthetized using lidocaine. I placed a 17-gauge epidural needle into the L2-L3 interspace. After confirmation of needle placement in the epidural space stimulating lead was inserted and advanced very easily to the T7-T8-T9 vertebral body. Lead placement was checked in AP and lateral views. A second needle was then inserted and advanced again into the L2-L3 interspace. Again after confirmation of needle placement in the epidural space a stimulating lead was inserted and advanced very easily again to the T7 T8-9 vertebral body. One lead was at midline and the second lead was left of midline. [place] were removed. The leads were secured in place. Patient tolerated the procedure well with no complications. He was taken recovery in stable condition. Patient was programmed by the [employer] marketing representative. He felt stimulation in all areas of pain. He was discharged home neurologically intact and with good relief of pain symptoms. Plan and disposition: We will follow-up with him in 3 days for reprogramming. We will follow-up in 1 week for lead pull. He is to remain off of his Plavix and he can continue baby aspirin for now. If he is any problems or questions he is to call us back in the pain clinic. Condition: stable Disposition: PACU Complications:: None
[2019-10-25 14:15] LABS: POC Glucose,Bedside 274 (70-110)
== END 2019-10-25 11:31 | disposition home or self-care (01) ==
LOC: OR 07:19
PROVIDERS: PCP Internal Medicine Adolescent Medicine; Visit Provider Anesthesiology
PROC: (CPT 63650; principal; 2019-10-25 08:00)
DX: M96.1 Postlaminectomy syndrome, not elsewhere classified (principal); M51.16 Intervertebral disc disorders with radiculopathy, lumbar region; E11.9 Type 2 diabetes mellitus without complications; K21.9 Gastro-esophageal reflux disease without esophagitis; E78.5 Hyperlipidemia, unspecified; I10 Essential (primary) hypertension; Z83.3 Family history of diabetes mellitus; Z82.49 Family history of ischemic heart disease and other diseases of the circulatory system; Z83.438 Family history of other disorder of lipoprotein metabolism and other lipidemia; Z84.89 Family history of other specified conditions; Z79.82 Long term (current) use of aspirin; Z79.899 Other long term (current) drug therapy
CPT/HCPCS: 63650 ×2; 82962; 96374; C1778; J3370

== ENCOUNTER → 2019-10-28 14:14 | Outpatient (POV) | payer OTHER, SELFPAY ==
[2019-10-28 14:59] VITALS: BP 118/62; PULSE 73; RESP 18; O2SAT 98; BMI 30.4
--- NOTE | 2019-10-28 16:07 | P.PCN_ITS ---
- Procedure Date: 10/28/19 Time: 15:30 Anesthesiologist:: Kathy Espinoza APRN Complications:: None Pre-procedure Diagnosis:: Postlaminectomy syndrome lumbar spine with lumbar radiculopathy symptoms Post-procedure Diagnosis:: Same Indications for Procedure:: Patient is a pleasant 54-year-old white male who we are treating for low back pain with lumbar radiculopathy he has failed all previous conservative therapy including previous surgery, injections, physical therapy and oral medications. He is currently on [place]/gabapentin and Cymbalta he would like to come off this medication. He is following up for a neurostimulator trial lead removal. Patient states he got over 90% relief of his symptomology he rates his pain a 4 out of 10. Patient has a successful psychological evaluation this is a successful trial he would like to get a permanent implant. I answered all of his questions. Patient is to start taking his Plavix again tomorrow. Patient's leads are placed at the T7-T8-T9 vertebral bodies Physical Exam General: Alert and oriented x3, no acute distress, pleasant and cooperative, [on room air] Lungs: Resps E/U, Symmetrical chest expansion, Eyes: PERRL Musculoskeletal: Flexion and extension of lumbar spine somewhat guarded secondary to pain, deep tendon reflexes normal, strength in upper and lower extremities [5/5], slightly antalgic gait noted Neurological: speech clear, director of development equal, no gross sensory deficits Procedure Details:: After informed consent was obtained the risk and benefits of the procedure were explained to the patient. Patient's vital signs were monitored with noninvasive blood pressure cuff and pulse oximeter. Patient's tape was removed on her back. The area in which her epidural leads entered was examined to ensure no redness or draining. Patient leads were then removed in sterile fashion. Patient then had Band-Aids placed over the puncture sites. Patient tolerated the procedure well. Plan and Disposition:: This is a successful trial we will go for a permanent implant with a [employer] system. Patient's trial leads were at the T7-T8-T9 vertebral bodies. I will follow-up with him after permanent implant reassess his symptoms at that time. He understands he has to be off of his Plavix prior to this. We do have permission for this. Patient's been instructed to call the office if he has any issues prior to his next appointment. Dr. Galarza has reviewed this note and agrees with this plan of care. This note was dictated using voice recognition software and may contain errors or omissions
== END ==
PROVIDERS: PCP Internal Medicine Adolescent Medicine; Visit Provider Clinical Nurse Specialist Family Health
DX: M96.1 Postlaminectomy syndrome, not elsewhere classified (principal); M54.16 Radiculopathy, lumbar region
CPT/HCPCS: 99212

== ENCOUNTER → 2019-11-11 12:46 | Outpatient (CLI) | payer OTHER, SELFPAY ==
[2019-11-11 13:22] LABS: Basophils # 0.1 K/mm3 (0-0.2); Basophils % 0.8 % (0.1-2.0); Eosinophils # 0.2 K/mm3 (0.0-0.4); Eosinophils % 2.6 % (0.1-12.0); Hematocrit 41.6 % (42.0-52.0); Hemoglobin 13.9 g/dL (14.1-18.0); Lymphocytes % 22.3 % (10-50); Mean Corpuscular HGB Conc 33.3 g/dL (31.8-35.4); Mean Corpuscular Hemoglobin 30.2 pg (27.0-31.2); Mean Corpuscular Volume 90.8 fl (80-94); Mean Platelet Volume 8.7 fl (7.4-10.4); Monocytes # 0.5 K/mm3 (0.1-1.0); Monocytes % 5.4 % (1.7-9.3); Neutrophils # 6.1 K/mm3 (1.8-7.8); Neutrophils % 68.9 % (37.0-80.0); Platelet Count 327 K/mm3 (142-424); Red Blood Count 4.58 M/mm3 (4.60-6.20); Red Cell Distribution Width 13.5 % (11.5-17.5); White Blood Count 8.8 K/mm3 (4.8-10.8)
[2019-11-11 13:42] LABS: Chloride 91 mmol/L (98-107); Potassium 4.7 mmoL/L (3.5-5.1); Sodium 128 mmol/L (136-145)
[2019-11-11 13:45] LABS: Anion Gap 19.7 mEq/L (5-15); Blood Urea Nitrogen 30 mg/dl (9-20); Carbon Dioxide 22 mmol/L (22.0-30.0); Estimated Glomerular Filt Rate 78 ml/min (>60); GFR (African American) 95 ML/MIN (>60)
[2019-11-11 13:46] LABS: Calcium 9.3 mg/dl (8.4-10.2)
[2019-11-11 14:09] LABS: Glucose 609 mg/dl (74-100)
[2019-11-11 14:23] LABS: Coronavirus 19 IgG Antibody Negative (Negative); Coronavirus 19 IgM Antibody Negative (Negative)
== END ==
PROVIDERS: Visit Provider Anesthesiology
DX: Z01.818 Encounter for other preprocedural examination (principal)
CPT/HCPCS: 36415; 80048; 85025; 86328

== ENCOUNTER 2019-11-13 07:42 | Day surgery (SDC) | payer OTHER, SELFPAY ==
[2019-11-11 10:56] VITALS: BMI 30.2
[2019-11-13] VITALS (7 sets, daily range): BP systolic 113–149; BP diastolic 58–87; PULSE 59–69; RESP 16–18; TEMP 36.2–36.3; O2SAT 91–100
[2019-11-13 07:59] LABS: POC Glucose,Bedside 228 (70-110)
[2019-11-13 08:57] LABS: POC Glucose,Bedside 201 (70-110)
--- NOTE | 2019-11-13 09:22 | P.PN_ITS ---
[facility] Anesthesia Checklist - Patient Identification Patient Identification: Arm Band, Verbal (Name & ) - Structural Data Admitted From: Home Planned Operative Procedure/s: Placement of permanent neurostimulator generator Consent for Planned Operative Procedure(s) Verified: Yes Verified Documents: Surgical Consent, History and Physical - NPO Status Verified Time NPO: 21:30 - Chart Verification Results Verified: CBC, BMP - Additional verifications Fingerstick Blood Glucose: 288 Anesthesia Reactions: No Hx Blood Transfusions: No Blood Transfusion Reaction: No - Airway Assessment C-Spine Mobility Assessed: Yes (MP 3, TMD 3, thick neck) TMJ Mobility Assessed: Yes Dentition: Partials (Upper, lower missing) - Neurological Assessment Level of Consciousness: Awake, Alert, Appropriate, Follows Commands Hx Seizures: No Numbness or tingling in extremities: No - Anesthesia Plan Anesthesia Risk discussed: Yes Anesthesia Plan: Verified ASA Class: III Anesthesia Type: MAC [facility] History I have reviewed the patient's past medical history: Yes 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: Reports:: Coronary Artery Disease, Diabetes Mellitus Type 2, Gastroesophageal Reflux Disease(GERD), Hyperlipidemia, Hypertension Denies:: Cancer, Diabetes Mellitus Type 1, Internal Pacemaker, MRSA, Seizures *Have you ever received a pneumonia vaccine?: No *Have you received a flu vaccine this season?: No Other 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: Denies: Blood Transfusion Reaction Comment:: obesity Anesthesia experience/problems:: no prior complications Laterality Cases: Bilateral: Other Other Surgeries: Yes: Cardiac Catheterization, Coronary Stent (x2), Other (Lumbar back sxX3). No: Pacemaker Amputation: No Fractures: No - *Social History Last grade of school completed: High school graduate Smoking Status: Never smoker Alcohol Intake: never Alcohol Intake Frequency:: holidays/special occasions only Substance Use Type: denies use *Occupational Status:: unemployed Housing: house Household Members: spouse *Travel in the last 8 weeks: None Family Hx:: Coronary Artery Disease, Diabetes, Hyperlipidemia, Hypertension
[2019-11-13 09:28] LABS: POC Glucose,Bedside 138 (70-110)
--- NOTE | 2019-11-13 09:32 | HMH.PMCON ---
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 HPI - Data of Consult Patient: new to practice Consult date: 11/13/19 Requesting Physician: Nick Galarza MD Primary Care Provider: Anthony Gallegos MD - Consult Narrative History of present illness: Mr. Farr is a 54 year old male with chronic back pain status post back surgery x3. Additional attempts at pain relief have been unsuccessful including medications therapy etc. Patient had a pain stimulator trial with significant improvement and comes in today for placement of that system CC: Nick Galarza MD Back pain [facility] History 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: Reports:: Coronary Artery Disease, Diabetes Mellitus Type 2, Gastroesophageal Reflux Disease(GERD), Hyperlipidemia, Hypertension Denies:: Cancer, Diabetes Mellitus Type 1, Internal Pacemaker, MRSA, Seizures *Have you ever received a pneumonia vaccine?: No *Have you received a flu vaccine this season?: No Other 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: Denies: Blood Transfusion Reaction Comment:: Illnesses-diabetes mellitus, hypertension, hyperlipidemia, coronary disease, GERD, anxiety and depression, chronic back pain Anesthesia experience/problems:: no prior complications Laterality Cases: Bilateral: Other Other Surgeries: Yes: Cardiac Catheterization, Coronary Stent (x2), Other (Lumbar back sxX3). No: Pacemaker Amputation: No Fractures: No Comment: Operations back back surgery x3, colonoscopy - *Social History Last grade of school completed: High school graduate Smoking Status: Never smoker Alcohol Intake: never Alcohol Intake Frequency:: holidays/special occasions only Substance Use Type: denies use *Occupational Status:: unemployed Housing: house Household Members: spouse *Travel in the last 8 weeks: None Family Hx:: Coronary Artery Disease, Diabetes, Hyperlipidemia, Hypertension Review of Systems - Review of Systems Review of systems:: unable to obtain, other, pertinent systems reviewed and negative unless documented below Meds Home Medications Medication Instructions Recorded Confirmed Type Metformin HCl [Glucophage 500mg 1,000 mg PO BID 11/05/17 11/13/19 History Tablet] Omeprazole [Omeprazole 20mg Tab] 20 mg PO DAILY 11/05/17 11/13/19 History lisinopriL [Lisinopril 20mg Tab] 20 mg PO DAILY 11/05/17 11/13/19 History aspirin 81 mg tablet,delayed 81 mg PO DAILY 07/04/18 11/13/19 History release duloxetine 60 mg capsule,delayed 60 mg PO DAILY 07/04/18 11/13/19 History release fenofibrate nanocrystallized 145 145 mg PO DAILY 07/04/18 11/13/19 History mg tablet omega-3 fatty acids 500 mg capsule 500 mg PO DAILY 07/04/18 11/13/19 History atorvastatin 40 mg tablet 40 mg PO QHS 09/18/18 11/13/19 History gabapentin 600 mg tablet 800 mg PO QID tab 09/18/18 11/13/19 History hydrocodone 10 mg-acetaminophen 1 tab PO TID PRN 09/18/18 11/13/19 History 325 mg tablet nitroglycerin 0.4 mg sublingual 0.4 mg SUBLINGUAL Q5-15M PRN #30 02/05/19 11/13/19 Rx tablet tab Clopidogrel Bisulfate [Plavix 75mg 75 mg PO DAILY 03/18/19 11/13/19 History Tab] furosemide 20 mg tablet 20 mg PO DAILY tab 05/08/19 11/13/19 History bisoprolol fumarate 5 mg tablet 5 mg PO DAILY #90 tab 05/17/19 11/13/19 Rx Insulin NPH Hum/Reg Insulin Hm 100 unit SQ DAILY 10/23/19 11/13/19 History [Humulin 70/30 Insulin 100 Units/mL 10mL Vial] Allergies Allergy/AdvReac Type Severity Reaction Status Date / Time Penicillins [PENICILLINS] Allergy Intermediate I-HIVES Verified 11/13/19 08:03 Objective Vital signs: Temp Pulse Resp BP Pulse Ox 97.4 F L 67 18 137/80 100 11/13/19 08:07 11/13/19 08:07 11/13/19 08:07 11/13/19 08:07 11/13/19 08:07 Comments: Pale white male in no distress - *Routine Respiratory Exam Comments: Chest clear
--- NOTE | 2019-11-13 10:40 | HMH.OPNOTE ---
Date of procedure: 11/13/19 Pre-op Diagnosis:: Degenerative disc disease of the lumbar spine with radiculopathy Post-op Diagnosis:: Same Procedure performed:: Placement of pain stimulator generator Surgeon:: Gurmeet Murphy MD HOMEBIRTH MIDWIFE:: Derrick Holguin, [place] Bowen, Fermín Chew, Hugo Roberts, Other Anesthesia: MAC Estimated blood loss (mL): 5 Operative findings:: Not applicable Operative note:: Patient was placed prone on the operating table and his back and flank regions were prepped and draped in sterile fashion. Once adequate IV sedation was obtained utilizing anesthesia and local anesthesia utilizing 1% Xylocaine with epinephrine, a paraspinal incision was made by Dr. Hernandez through which 2 epidural leads were placed in the epidural space to the area desired by Dr. Hernandez. The leads were connected to the paraspinal fascia with fixation devices and 2-0 Prolene suture. Right flank incision was made under which is made a pocket for placement of the stimulator generator. Utilizing the tunneling device the catheter was passed from the paraspinal incision to the pocket incision. Leads connected the generator which was placed in the pocket. System noted to be functioning properly. Both pockets irrigated with antibiotic solution. Subcutaneous tissues closed with 2-0 Vicryl. Skin closed with 4-0 nylon. Wound VAC dressing and binder applied to the wound. The patient taught procedure well and was taken to the recovery room in stable condition. Upon recovery she will be discharged home that he will follow-up in 1 week for removal of the wound VAC system in 2 weeks remove the sutures. Antibiotic x1 week per protocol. The patient tolerated the procedure well Condition: stable Disposition: PACU Complications:: None
--- NOTE | 2019-11-13 10:57 | P.OP_ITS ---
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 He has had 3 previous back surgeries by Dr. Lin. He has failed all conservative treatments including physical therapy, oral medications, epidural steroid injections and previous surgery. He has had a successful spinal cord stimulator trial with 80 to 90% relief in his pain symptoms. He is also had a successful psychological evaluation. He presents for permanent placement of a spinal cord stimulator today. This will be a [employer] system. Operative findings:: None Operative note:: Informed consent was obtained risk and benefits of the procedure were explained to the patient. Patient was taken to the operating room placed prone on the procedure table. He was prepped and draped in sterile fashion. C-arm fluoroscopy was used to view the lumbar spine. The skin and subcutaneous tissues adjacent to the L2-L3 and L3-L4 interspace were anesthetized using lidocaine. I made an incision and dissected down to the lumbar paraspinous fascia. A 17-gauge epidural needle was inserted and advanced under fluoroscopic guidance into the L2-L3 epidural space. After confirmation of needle placement in the epidural space stimulating lead was inserted and advanced very easily to the T7-T8-T9 vertebral body. Lead placement was checked in AP and lateral views. A second needle was then inserted and advanced under fluoroscopic guidance into the L2-L3 epidural space again. Again after confirmation of needle placement in the epidural space. A second lead was inserted and advanced very easily to the T7-T8-T9 vertebral body. Again lead placement was checked in AP and lateral views. The stylets and needles were withdrawn. The leads were secured to the fascia with anchor devices and 2-[address] edgar barton prepared the generator pocket. I tunneled the leads from the back to the generator. Attached the leads to the generator. Impedances were checked and found to be okay. Both incisions were irrigated with bacitracin solution. The generator was placed in the pocket and both incisions were then closed with 2-0 Vicryl followed by 4-0 nylon. A wound VAC was placed over both incisions. Patient was placed in an abdominal binder taken recovery in stable condition. Patient tolerated the procedure well with no complications. Patient was programmed by the [employer] claim representative. Patient was discharged home neurologically intact and with good relief of pain symptoms. Ever and disposition: Follow-up with this patient in 1 week for reprogramming and wound check. We will follow-up in 2 weeks for suture removal. If he has any problems or questions he is to call me back in the pain clinic. Condition: stable Disposition: PACU Complications:: None
== END 2019-11-13 12:23 | disposition home or self-care (01) ==
PROVIDERS: PCP Internal Medicine Adolescent Medicine; Visit Provider Anesthesiology
PROC: (CPT 62362; principal; 2019-11-13 09:15)
DX: M51.16 Intervertebral disc disorders with radiculopathy, lumbar region (principal); M96.1 Postlaminectomy syndrome, not elsewhere classified; I25.10 Atherosclerotic heart disease of native coronary artery without angina pectoris; E11.9 Type 2 diabetes mellitus without complications; K21.9 Gastro-esophageal reflux disease without esophagitis; E78.5 Hyperlipidemia, unspecified; I10 Essential (primary) hypertension; F41.9 Anxiety disorder, unspecified; F32.9 Major depressive disorder, single episode, unspecified; Z95.828 Presence of other vascular implants and grafts; Z83.3 Family history of diabetes mellitus; Z82.49 Family history of ischemic heart disease and other diseases of the circulatory system; Z83.438 Family history of other disorder of lipoprotein metabolism and other lipidemia
CPT/HCPCS: 62362; 62350 ×2; 82962; 96374; C1778; C1820; J2704; J3370

== ENCOUNTER → 2019-11-21 11:04 | Outpatient (POV) | payer OTHER, SELFPAY ==
[2019-11-21 12:05] VITALS: BP 141/74; PULSE 88; RESP 18; O2SAT 98; BMI 31.1
--- NOTE | 2019-11-21 13:14 | HMH.PAINSOAP ---
[facility] Pain Management SOAP Note Subjective:: Patient is a pleasant 54-year-old white male who presents today for follow-up after spinal cord stimulator placement. He is being treated for low back pain with lumbar radiculopathy symptoms as well as postlaminectomy syndrome. Patient rates him's pain at 3 out of 10 today. He is doing well overall. He says that the stimulator is working well for his pain at this time up to 90%. His incision is well approximated, no redness, no drainage, no edema is noted to the site. His sutures are intact. Review of Systems General: No recent weight changes, no fever, no sleep disturbances Respiratory: No cough, no shortness of air, no recurring pulmonary infections Cardiovascular/peripheral vascular: No chest pain, no palpitations, no edema, no shortness of breath Gastrointestinal: No new onset incontinence, normal bowel movements reported Genitourinary: No new onset incontinence Musculoskeletal: Low back pain Psychiatric: Normal mood/affect Neurological: [Denies weakness in extremities], [denies balance issues] Objective:: Physical exam General: Alert and oriented x3, no acute distress, pleasant and cooperative, [on room air] Lungs: Respirations even and unlabored, symmetrical chest expansion Eyes: PERRL Musculoskeletal: Flexion and extension of lumbar spine somewhat guarded secondary to pain, deep tendon reflexes normal, strength in upper and lower extremities [5/5], [abnormal gait noted] Neurological: Speech clear, retort unloader equal, no gross sensory deficit Assessment:: Degenerative disc disease lumbar spine with lumbar radiculopathy symptoms, postlaminectomy syndrome lumbar spine Plan:: We will follow-up with the patient in 2 weeks for suture removal. Overall, he is doing well today. We will plan to see him back in the clinic at that time to reassess his symptoms. He has been instructed to contact clinic if he has any concerns before his next appointment. The patient and I specifically discussed risk factors for COVID19. These risks include, but are not limited to age greater than 60, heart or lung disease, diabetes, immunosuppression, and travel. We also discussed NSAIDs may worsen COVID19 infection or symptoms. Patient should not use NSAIDs to treat COVID19 signs or symptoms. Patient was also informed that any type of corticosteroid of any form (oral or injection) will decrease the patient's immune system response and may increase the likelihood of COVID19 infection and symptoms[address] Galarza has reviewed this note and agrees with this plan of care. This note was dictated using voice recognition software and make contain errors or omissions. [facility] History I have reviewed the patient's past medical history: Yes 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: Reports:: Coronary Artery Disease, Diabetes Mellitus Type 2, Gastroesophageal Reflux Disease(GERD), Hyperlipidemia, Hypertension Denies:: Cancer, Diabetes Mellitus Type 1, Internal Pacemaker, MRSA, Seizures *Have you ever received a pneumonia vaccine?: Yes *Have you received a flu vaccine this season?: Yes Other 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: Denies: Blood Transfusion Reaction Laterality Cases: Bilateral: Other Other Surgeries: Yes: Cardiac Catheterization, Coronary Stent (x2), Other (Lumbar back sxX3). No: Pacemaker Amputation: No Fractures: No - *Social History Smoking Status: Never smoker Alcohol Intake: never Alcohol Intake Frequency:: holidays/special occasions only Substance Use Type: denies use *Occupational Status:: other Housing: house Household Members: spouse *Travel in the last 8 weeks: None Family Hx:: Coronary Artery Disease, Diabetes, Hyperlipidemia, Hypertension
== END ==
PROVIDERS: PCP Internal Medicine Adolescent Medicine; Visit Provider Clinical Nurse Specialist Family Health
DX: M51.16 Intervertebral disc disorders with radiculopathy, lumbar region (principal); M96.1 Postlaminectomy syndrome, not elsewhere classified
CPT/HCPCS: 99212

== ENCOUNTER → 2019-12-05 08:39 | Outpatient (POV) | payer OTHER, SELFPAY ==
--- NOTE | 2019-12-05 09:08 | HMH.PAINSOAP ---
[facility] Pain Management SOAP Note Subjective:: Patient is a pleasant 54-year-old white male who presents today for follow-up. He has been treated for low back pain with lumbar radiculopathy symptoms and laminectomy syndrome lumbar spine. He had recently underwent a [employer] spinal cord stimulator placement. He is doing well overall. He rates his pain a 4 out of 10. He is here today to have his sutures removed. Patient does say he was getting charley horses over the last few nights. He does say, however, overall his pain is much better. Review of Systems General: No recent weight changes, no fever, no sleep disturbances Respiratory: No cough, no shortness of air, no recurring pulmonary infections Cardiovascular/peripheral vascular: No chest pain, no palpitations, no edema, no shortness of breath Gastrointestinal: No new onset incontinence, normal bowel movements reported Genitourinary: No new onset incontinence Musculoskeletal: Low pain, leg pain Psychiatric: Normal mood/affect Neurological: [Denies weakness in extremities], [denies balance issues] Objective:: Physical exam General: Alert and oriented x3, no acute distress, pleasant and cooperative, [on room air] Lungs: Respirations even and unlabored, symmetrical chest expansion Eyes: PERRL Musculoskeletal: Flexion and extension of lumbar spine somewhat guarded secondary to pain, deep tendon reflexes normal, strength in upper and lower extremities [5/5], [abnormal gait noted] Neurological: Speech clear, ground crewman mission support equal, no gross sensory deficit Assessment:: Degenerative disc disease lumbar spine with lumbar radiculopathy symptoms, postlaminectomy syndrome lumbar spine Plan:: Patient's sutures were removed today. His incision is well approximated, no redness, no drainage, no edema is noted to the site. Patient did discuss that he wants to wean on his oral medications as prescribed by his primary care provider. He says that he did try to stop taking his gabapentin, however, he says that he did notice some increased pain over the last few days when he did try to stop it. I have encouraged the patient to not stop the medication immediately, however, but to instead wean on the dose. We will see him back in the clinic in 2 weeks to reassess his symptoms. He has been instructed to contact the clinic if he has any concerns before his next appointment. The patient and I specifically discussed risk factors for COVID19. These risks include, but are not limited to age greater than 60, heart or lung disease, diabetes, immunosuppression, and travel. We also discussed NSAIDs may worsen COVID19 infection or symptoms. Patient should not use NSAIDs to treat COVID19 signs or symptoms. Patient was also informed that any type of corticosteroid of any form (oral or injection) will decrease the patient's immune system response and may increase the likelihood of COVID19 infection [address] symptoms[address] Galarza has reviewed this note and agrees with this plan of care. This note was dictated using voice recognition software and make contain errors or omissions. [facility] History I have reviewed the patient's past medical history: Yes 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: Reports:: Coronary Artery Disease, Diabetes Mellitus Type 2, Gastroesophageal Reflux Disease(GERD), Hyperlipidemia, Hypertension Denies:: Cancer, Diabetes Mellitus Type 1, Internal Pacemaker, MRSA, Seizures *Have you ever received a pneumonia vaccine?: Yes *Have you received a flu vaccine this season?: Yes Other 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: Denies: Blood Transfusion Reaction Laterality Cases: Bilateral: Other Other Surgeries: Yes: Cardiac Catheterization, Coronary Stent (x2), Other (Lumbar back sxX3). No: Pacemaker Amputation: No Fractures: No - *Social History Smoking Status: Never smoker Alcohol Intake: never Alcohol Intake Frequency:: holidays/special occasions only Substance Use Type: denies use *Occupational Status:: other Housing: house Household Mem
[2019-12-05 09:14] VITALS: BP 136/74; PULSE 61; RESP 18; O2SAT 99; BMI 31.9
== END ==
PROVIDERS: PCP Internal Medicine Adolescent Medicine; Visit Provider Clinical Nurse Specialist Family Health
DX: M51.16 Intervertebral disc disorders with radiculopathy, lumbar region (principal); M96.1 Postlaminectomy syndrome, not elsewhere classified
CPT/HCPCS: 99212

== ENCOUNTER → 2019-12-19 08:32 | Outpatient (POV) | payer OTHER, SELFPAY ==
[2019-12-19 09:08] VITALS: BP 154/88; PULSE 68; RESP 18; O2SAT 98; BMI 31.6
--- NOTE | 2019-12-19 09:31 | HMH.PAINSOAP ---
[facility] Pain Management SOAP Note Subjective:: Patient is a pleasant 54-year-old white male who presents today for follow-up. He is being treated for low back pain with lumbar radiculopathy symptoms and postlaminectomy syndrome lumbar spine. He does have a [employer] spinal cord stimulator placed. He says he is doing well overall. He rates his pain a 4 out of 10. He does complain of some occasional stabbing-like pain at his incision site. Otherwise, he says he is doing well. He says most of his pain in his lower extremity is gone. Review of Systems General: No recent weight changes, no fever, no sleep disturbances Respiratory: No cough, no shortness of air, no recurring pulmonary infections Cardiovascular/peripheral vascular: No chest pain, no palpitations, no edema, no shortness of breath Gastrointestinal: No new onset incontinence, normal bowel movements reported Genitourinary: No new onset incontinence Musculoskeletal: Intermittent incisional pain Psychiatric: Normal mood/affect Neurological: [Denies weakness in extremities], [denies balance issues] Objective:: Physical exam General: Alert and oriented x3, no acute distress, pleasant and cooperative, [on room air] Lungs: Respirations even and unlabored, symmetrical chest expansion Eyes: PERRL Musculoskeletal: Flexion and extension of lumbar spine somewhat guarded secondary to pain, deep tendon reflexes normal, strength in upper and lower extremities [5/5], [abnormal gait noted] Neurological: Speech clear, mva operator equal, no gross sensory deficit Assessment:: Degenerative disc disease lumbar spine with lumbar radiculopathy symptoms, postlaminectomy syndrome lumbar spine Plan:: Overall the patient is doing well. We will follow-up with him in 3 months to reassess his symptoms. He has been instructed to contact the clinic if he has any concerns before his next appointment. The patient and I specifically discussed risk factors for COVID19. These risks include, but are not limited to age greater than 60, heart or lung disease, diabetes, immunosuppression, and travel. We also discussed NSAIDs may worsen COVID19 infection or symptoms. Patient should not use NSAIDs to treat COVID19 signs or symptoms. Patient was also informed that any type of corticosteroid of any form (oral or injection) will decrease the patient's immune system response and may increase the likelihood of COVID19 infection [address] symptoms[address]. Galarza has reviewed this note and agrees with this plan of care. This note was dictated using voice recognition software and make contain errors or omissions. [facility] History I have reviewed the patient's past medical history: Yes 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: Reports:: Coronary Artery Disease, Diabetes Mellitus Type 2, Gastroesophageal Reflux Disease(GERD), Hyperlipidemia, Hypertension Denies:: Cancer, Diabetes Mellitus Type 1, Internal Pacemaker, MRSA, Seizures *Have you ever received a pneumonia vaccine?: Yes *Have you received a flu vaccine this season?: Yes Other 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: Denies: Blood Transfusion Reaction Laterality Cases: Bilateral: Other Other Surgeries: Yes: Cardiac Catheterization, Coronary Stent (x2), Other (Lumbar back sxX3). No: Pacemaker Amputation: No Fractures: No - *Social History Smoking Status: Never smoker Alcohol Intake: never Alcohol Intake Frequency:: holidays/special occasions only Substance Use Type: denies use *Occupational Status:: other Housing: house Household Members: spouse *Travel in the last 8 weeks: None Family Hx:: Coronary Artery Disease, Diabetes, Hyperlipidemia, Hypertension
== END ==
PROVIDERS: PCP Internal Medicine Adolescent Medicine; Visit Provider Clinical Nurse Specialist Family Health
DX: M51.16 Intervertebral disc disorders with radiculopathy, lumbar region (principal); M96.1 Postlaminectomy syndrome, not elsewhere classified
CPT/HCPCS: 99212

== ENCOUNTER → 2020-01-02 13:24 | Outpatient (POV) | payer OTHER, SELFPAY ==
[2020-01-02 14:29] VITALS: BP 112/42; PULSE 74; RESP 18; TEMP 36.4; O2SAT 99; BMI 31.3
--- NOTE | 2020-01-02 15:31 | HMH.PAINSOAP ---
[facility] Pain Management SOAP Note Subjective:: Patient is a pleasant 54-year-old white male who presents today for follow-up. He has been treated for low back pain with lumbar radiculopathy symptoms as well as postlaminectomy syndrome lumbar spine. Patient does have a [employer] stimulator in place. He says that he did have a stimulator placed in hopes to stop his oral medications. Patient is currently taking gabapentin 800 mg 1 tablet p.o. 3 times daily. He denies any side effects to the medication. Patient says that he did run out of the medication and unfortunately had severe pain during the time he was out of the medication. Patient says that he feels that the stimulator is not working for him. He does say he has not had it reprogrammed recently. Patient rates his pain a 5 out of 10 today. Review of Systems General: No recent weight changes, no fever, no sleep disturbances Respiratory: No cough, no shortness of air, no recurring pulmonary infections Cardiovascular/peripheral vascular: No chest pain, no palpitations, no edema, no shortness of breath Gastrointestinal: No new onset incontinence, normal bowel movements reported Genitourinary: No new onset incontinence Musculoskeletal: Back pain with lower extremity pain Psychiatric: Normal mood/affect Neurological: [Denies weakness in extremities], [denies balance issues] Objective:: Physical exam General: Alert and oriented x3, no acute distress, pleasant and cooperative, [on room air] Lungs: Respirations even and unlabored, symmetrical chest expansion Eyes: PERRL Musculoskeletal: Flexion and extension of lumbar spine somewhat guarded secondary to pain, deep tendon reflexes normal, strength in upper and lower extremities [5/5], [abnormal gait noted] Neurological: Speech clear, 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 We will plan to see him back in the clinic in 2 weeks to reassess his symptoms. Patient has been instructed to contact clinic if he has any concerns before his next appointment. The patient and I specifically discussed risk factors for COVID19. These risks include, but are not limited to age greater than 60, heart or lung disease, diabetes, immunosuppression, and travel. We also discussed NSAIDs may worsen COVID19 infection or symptoms. Patient should not use NSAIDs to treat COVID19 signs or symptoms. Patient was also informed that any type of corticosteroid of any form (oral or injection) will decrease the patient's immune system response and may increase the likelihood of COVID19 infection [address] symptoms[address] Galarza has reviewed this note and agrees with this plan of care. This note was dictated using voice recognition software and make contain errors or omissions. [facility] History I have reviewed the patient's past medical history: Yes 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: Reports:: Coronary Artery Disease, Diabetes Mellitus Type 2, Gastroesophageal Reflux Disease(GERD), Hyperlipidemia, Hypertension Denies:: Cancer, Diabetes Mellitus Type 1, Internal Pacemaker, MRSA, Seizures *Have you ever received a pneumonia vaccine?: Yes *Have you received a flu vaccine this season?: Yes Other 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: Denies: Blood Transfusion Reaction Laterality Cases: Bilateral: Other Other Surgeries: Yes: Cardiac Catheterization, Coronary Stent (x2), Other (Lumbar back sxX3). No: Pacemaker Amputation: No Fractures: No - *Social History Smoking Status: Never smoker Alcohol Intake: never Alcohol Intake Frequency:: holidays/special occasions only Substance Use Type: denies use *Occupational Status:: other Housing: house Household Members: spouse *Travel in the last 8 weeks: None Family Hx:: Coronary Artery Disease, Diabetes, Hyperlipidemia, Hypertension
== END ==
PROVIDERS: PCP Internal Medicine Adolescent Medicine; Visit Provider Clinical Nurse Specialist Family Health
DX: M51.16 Intervertebral disc disorders with radiculopathy, lumbar region (principal); M96.1 Postlaminectomy syndrome, not elsewhere classified
CPT/HCPCS: 99212

== ENCOUNTER → 2020-03-19 09:04 | Outpatient (POV) | payer OTHER, SELFPAY ==
[2020-03-19 09:38] VITALS: BP 136/85; PULSE 85; RESP 18; TEMP 36.9; O2SAT 98; BMI 32.1
--- NOTE | 2020-03-19 16:25 | HMH.PAINSOAP ---
[facility] Pain Management SOAP Note Subjective:: Patient is a 54-year-old white male who presents today for follow-up. He is being treated for chronic low back pain with lumbar radiculopathy symptoms well as postlaminectomy syndrome of his lumbar spine. He does have a [employer] spinal cord stimulator that is in place. Patient says that he generally gets decent relief with his spinal cord stimulator, however, he does feel that he needs reprogramming. He says his pain is starting to return. He rates his pain a 7 out of 10 today. He also takes gabapentin 800 mg 1 tablet p.o. 3 times daily. He is complaining mostly today of right neck pain at the base of his neck and behind his ear causing him to have severe headaches. He says that this pain has been ongoing for a few weeks. Patient says that this is new onset for him. He has not had any type of injective therapy to the area. He says that he feels as though there is a great deal of pressure behind his right ear. Patient would also like to meet with the spinal cord stimulator printing sales representative for reprogramming of his stimulator. Review of Systems General: No recent weight changes, no fever, no sleep disturbances Respiratory: No cough, no shortness of air, no recurring pulmonary infections Cardiovascular/peripheral vascular: No chest pain, no palpitations, no edema, no shortness of breath Gastrointestinal: No new onset incontinence, normal bowel movements reported Genitourinary: No new onset incontinence Musculoskeletal: Right sided neck pain, headaches, low back pain Psychiatric: Normal mood/affect Neurological: [Denies weakness in extremities], [denies balance issues] Objective:: Physical exam General: Alert and oriented x3, no acute distress, pleasant and cooperative, [on room air] Lungs: Respirations even and unlabored, symmetrical chest expansion Eyes: PERRL Musculoskeletal: Flexion and extension of cervical and lumbar spine somewhat guarded secondary to pain, deep tendon reflexes normal, strength in upper and lower extremities [5/5], normal gait noted Neurological: Speech clear, 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 We will also schedule the patient for a right occipital nerve block. He is having pain behind his right ear as well as new onset headaches. Patient also says that he is having right-sided neck pain. We will contact his bath mixer for approval for the patient to hold his anticoagulation therapy. We will see him back in the clinic after his injection to reassess his symptoms. He has been instructed to contact clinic if he has any concerns for his next appointment. Risks and benefits of the procedure were explained to the patient and he would like to proceed with the injection. The patient and I specifically discussed risk factors for COVID19. These risks include, but are not limited to age greater than 60, heart or lung disease, diabetes, immunosuppression, and travel. We also discussed NSAIDs may worsen COVID19 infection or symptoms. Patient should not use NSAIDs to treat COVID19 signs or symptoms. Patient was also informed that any type of corticosteroid of any form (oral or injection) will decrease the patient's immune system response and may increase the likelihood of COVID19 [address] Galarza has reviewed this note and agrees with this plan of care. This note was dictated using voice recognition software and make contain errors or omissions. [facility] History I have reviewed the patient's past medical history: Yes 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: Reports:: Coronary Artery Disease, Diabetes Mellitus Type 2, Gastroesophageal Reflux D
== END ==
PROVIDERS: PCP Internal Medicine Adolescent Medicine; Visit Provider Clinical Nurse Specialist Family Health
DX: M51.16 Intervertebral disc disorders with radiculopathy, lumbar region (principal); M54.2 Cervicalgia
CPT/HCPCS: 99212

== ENCOUNTER 2020-04-01 10:01 | Day surgery (SDC) | payer OTHER, SELFPAY ==
[2020-04-01] VITALS (12 sets, daily range): BP systolic 101–130; BP diastolic 54–81; PULSE 61–77; RESP 12–20; O2SAT 89–100; BMI 32.5
[2020-04-01 10:48] LABS: Basophils # 0.1 K/mm3 (0-0.2); Basophils % 0.7 % (0.1-2.0); Eosinophils # 0.4 K/mm3 (0.0-0.4); Eosinophils % 5.6 % (0.1-12.0); Hematocrit 42.3 % (42.0-52.0); Hemoglobin 13.3 g/dL (14.1-18.0); Lymphocytes # 1.7 K/mm3 (0.7-4.5); Lymphocytes % 24.1 % (10-50); Mean Corpuscular HGB Conc 31.5 g/dL (31.8-35.4); Mean Corpuscular Hemoglobin 28.1 pg (27.0-31.2); Mean Corpuscular Volume 89.3 fl (80-94); Mean Platelet Volume 8.4 fl (7.4-10.4); Monocytes # 0.4 K/mm3 (0.1-1.0); Monocytes % 5.6 % (1.7-9.3); Neutrophils # 4.5 K/mm3 (1.8-7.8); Platelet Count 346 K/mm3 (142-424); Red Blood Count 4.74 M/mm3 (4.60-6.20); Red Cell Distribution Width 13.7 % (11.5-17.5); White Blood Count 7.1 K/mm3 (4.8-10.8)
[2020-04-01 11:01] LABS: Chloride 101 mmol/L (98-107); Potassium 4.9 mmoL/L (3.5-5.1); Sodium 136 mmol/L (136-145)
[2020-04-01 11:04] LABS: Anion Gap 11.9 mEq/L (5-15); Blood Urea Nitrogen 25 mg/dl (9-20); Calcium 9.8 mg/dl (8.4-10.2); Carbon Dioxide 28 mmol/L (22.0-30.0); Creatinine Clearance Estimated 125 mL/min (50-200); Estimated Glomerular Filt Rate 88 ml/min (>60); GFR (African American) 106 ML/MIN (>60); Glucose 348 mg/dl (74-100)
[2020-04-01 11:51] LABS: Coronavirus 19 IgG Antibody Negative (Negative); Coronavirus 19 IgM Antibody Negative (Negative)
--- NOTE | 2020-04-01 12:29 | IR_ITS ---
APPROVED REPORT Patient Location: Outpatient Fabricating Machine Operator: GUDELIA Garcia RT (R) PROCEDURES Left heart catheterization Left ventriculogram Selective coronary angiogram Drug-eluting stent deployment to the proximal LAD INDICATION Known coronary artery disease, Unstable angina Informed consent was obtained prior to the procedure. COMPLICATIONS none Estimated Blood Loss: less than 10 mls TECHNIQUE One percent lidocaine used to anesthetize the right anterior aspect of the wrist. The right radial artery was accessed via the Seldinger technique. A 6 [place] sheath was placed in the right radial artery. 2.5 mg of verapamil, 800 mcg of nitroglycerin, 1mg Lidocaine and 5000 U Heparin were given through the arterial sheath. The trap catheter was also used to perform left heart catheterization, left ventriculogram and selective coronary angiogram. At the end of the diagnostic angiogram therapeutic heparin was administered giving a therapeutic ACT. And I Leonila left guide catheter was used to intubate the left main artery and a Choice PT wire was placed distally. A 3.5 x 15 mm resolute [place] stent was deployed at 20 felecia in the proximal LAD reducing the severe stenosis to 0%. VALE-3 flow was present before and after the procedure. After achieving excellent angiographic results the apparatus was removed the sheath was removed and hemostasis was achieved using TR banding patient was transferred to the postop holding area in stable condition ANGIOGRAPHIC RESULTS The left main artery Normal The left anterior descending artery Has a proximal 80 to 90% concentric stenosis followed by a stent which has 30% concentric in-stent restenosis The circumflex artery Is a dominant vessel and normal The right coronary artery Nondominant yet still large and normal The BERMAN ventriculogram reveals Normal 65% The left ventricular end-diastolic pressure 10 mmHg IMPRESSION Severe proximal LAD disease Successful stenting the proximal LAD severe disease reduced to 0% with 1 drug-eluting stent Normal ejection fraction Normal left ventricular diastolic pressure PLAN 1. Continue dual antiplatelet therapy 2. Risk factor modification 3. Cardiac rehabilitation 4. Avoidance of tobacco products 5. LDL less than 55 Electronically signed by : Carmelo Cherry, 04/01/2020 14:08:30
--- NOTE | 2020-04-01 14:24 | HMH.PHACLD ---
Axel Farr has received discharge medication counseling on the following medications: LISINOPRIL,PLAVIX,ASPIRIN,ATORVASTATIN,BISOPROLOL. NO NEW MEDICATIONS AT THIS TIME. DISCHARGE COUNSELING COMPLETED BY RADHA ROGEL, STUDENT PHARMACIST. -JERMAN LOREDO, ADAND
[2020-04-01 14:57] LABS: CATHL Activated Clotting Time > 400 SEC (74-125)
== END 2020-04-01 16:37 ==
PROVIDERS: PCP Internal Medicine Adolescent Medicine; Visit Provider Internal Medicine
DX: I25.110 Atherosclerotic heart disease of native coronary artery with unstable angina pectoris (principal); I11.0 Hypertensive heart disease with heart failure; I50.30 Unspecified diastolic (congestive) heart failure; E78.5 Hyperlipidemia, unspecified; E11.9 Type 2 diabetes mellitus without complications; Z79.4 Long term (current) use of insulin; Z79.899 Other long term (current) drug therapy; R94.31 Abnormal electrocardiogram [ECG] [EKG]; K21.9 Gastro-esophageal reflux disease without esophagitis; Z88.0 Allergy status to penicillin
CPT/HCPCS: 36415; 80048; 85025; 85347; 86328; 92928; 93458; 99152; 99153; C1725; C1769; C1874; C9600; J1644; Q9967

== ENCOUNTER → 2020-05-18 10:46 | Outpatient (CLI) | payer OTHER, SELFPAY ==
--- NOTE | 2020-05-18 10:51 | XR_ITS ---
PROCEDURE: XR CERVICAL SPINE 5V CLINICAL INDICATION: CERVICAL NEURALGIA Right-sided neck pain COMPARISON: No exams were available for comparison FINDINGS: No fracture or dislocation. No lytic or blastic change. There is normal mineralization. There is normal alignment. The neural foramina are widely patent. The joint spaces are well-preserved. No significant degenerative/arthritic changes. No erosive changes evident. Other findings:Minimal carotid calcifications on the left. IMPRESSION: Negative cervical spine Dictated by: Kulwinder Pike MD 05/18/2020 11:11 Kulwinder Pike MD in [place] 05/18/2020 11:11
== END ==
PROVIDERS: PCP Internal Medicine Adolescent Medicine; Visit Provider Internal Medicine Adolescent Medicine
DX: M54.12 Radiculopathy, cervical region (principal)
CPT/HCPCS: 72050

== ENCOUNTER → 2021-02-04 12:23 | Outpatient (POV) | payer OTHER, SELFPAY ==
[2021-02-04 12:57] VITALS: BP 130/79; PULSE 74; RESP 18; O2SAT 98; BMI 29.7
--- NOTE | 2021-02-04 13:08 | HMH.PAINSOAP ---
[facility] Pain Management SOAP Note Subjective:: Patient is a pleasant 55-year-old white male who presents today for follow-up after reprogramming with [employer] spinal cord stimulator international representative. Patient reports that he had a fall striking the left side of his body. Since his fall, he has had worsening low back pain and lower extremity pain. He does have a spinal cord stimulator that does provide relief to his low back and bilateral lower extremity. He is treated for degenerative disc disease lumbar spine with lumbar radicular symptoms and postlaminectomy syndrome lumbar spine. Patient says since the device has not been working he has had worsening neuropathic pain into his legs. He does take gabapentin 800 mg 1 tablet p.o. 3 times daily. After meeting with international representative, the patient was noted to have impedances to a lead. Unfortunately the patient is not getting stimulation. Patient was advised to contact the office for scheduling of revision of the leads. He does rate his pain a 4 out of 10 with sitting and a 7 or an 8 out of 10 with standing and walking. The patient has had physical therapy in the past and continues with home stretching. He has tried ice and heat therapies. He does take gabapentin. The spinal cord stimulator gives him excellent relief when working properly. He gets up to 70 to 80% relief with the stimulator. Since the fall he is getting no relief with the stimulator. Review of Systems General: No recent weight changes, no fever, no sleep disturbances Respiratory: No cough, no shortness of air, no recurring pulmonary infections Cardiovascular/peripheral vascular: No chest pain, no palpitations, no edema, no shortness of breath Gastrointestinal: No new onset incontinence, normal bowel movements reported Genitourinary: No new onset incontinence Musculoskeletal: Low back pain with radiation into bilateral lower extremities Psychiatric: [Normal mood/affect] Neurological: [Denies weakness in extremities], [denies balance issues] Objective:: Physical exam General: Alert and oriented x3, no acute distress, pleasant and cooperative, [on room air] Lungs: Respirations even and unlabored, symmetrical chest expansion Eyes: PERRL Musculoskeletal: Flexion and extension of lumbar [spine] somewhat guarded secondary to pain, [antalgic gait noted] Neurological: Speech clear, no gross sensory deficit Assessment:: Degenerative disc disease lumbar spine with lumbar radiculopathy symptoms, postlaminectomy syndrome lumbar spine, malfunctioning spinal cord stimulator leads Plan:: The patient's current device is not MRI compatible. We did discuss changing out the device and leads for compatibility for MRIs. He is in agreement. We will plan to follow-up with the patient after change out of his device for reevaluation of symptoms. Patient gets excellent relief with his stimulator to his low back and bilateral lower extremities when the device was working properly. Post fall, the patient's pain has returned. The patient is on Plavix therapy which is prescribed by Dr. Cherry. He does understand he will need to hold this prior to the change out of device. Risks and benefits of the procedure have been explained to the patient. Patient would like to proceed with the procedure. Patient has been instructed to contact the clinic with any concerns before the next appointment. Dr. Galarza has reviewed this note and agrees with this plan of care. This note was dictated using voice recognition software and make contain errors or omissions. [facility] History I have reviewed the patient's past medical history: Yes 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: Reports:: Coronary Artery Disease, Diabetes Mellitus Type 2, Gastroesophageal Reflux Disease(GERD), Hyperlipidemia, Hypertension Denies:: Cancer, Diabetes Mellitus Type 1, Internal Pacemaker, MRSA, Seizures *Have you ever received a pneumonia vaccine?: No *Have you received a flu vaccine this season
--- NOTE | 2021-02-04 13:14 | XR_ITS ---
PROCEDURE: XR MULTIPLE SPINE 6+V CLINICAL INDICATION: S/P FALL,CHECK LEAD PLACEMENT COMPARISON: CR CXR2 CHEST-AP VIEW ONLY from 02/08/2014 FINDINGS: AP and lateral of thoracic and lumbar spine obtained. There is a spinal stimulator noted and ring the spinal canal L4 level the distal extent of the stimulator at the superior endplate of T8 level. There is no acute compression fracture identified. There is a transitional vertebrae at the lumbosacral junction with partial lumbarization of S1 bilaterally. There is mild disc space narrowing at the L 5 S1 level. Remaining disc spaces are well maintained. IMPRESSION: No acute findings. Dictated by: Dr. Valentino Rodriguez MD 02/04/2021 13:59 Dr. Valentino Rodriguez MD in [place] 02/04/2021 13:59
== END ==
PROVIDERS: PCP Internal Medicine Adolescent Medicine; Visit Provider Clinical Nurse Specialist Family Health
DX: T85.112A Breakdown (mechanical) of implanted electronic neurostimulator of spinal cord electrode (lead), initial encounter (principal); M51.16 Intervertebral disc disorders with radiculopathy, lumbar region; M96.1 Postlaminectomy syndrome, not elsewhere classified
CPT/HCPCS: 72084; 99212; G0463

== ENCOUNTER → 2021-03-08 18:05 | Outpatient (CLI) | payer OTHER, SELFPAY ==
[2021-03-08 20:38] LABS: Alanine Aminotransferase 40 U/L (12-78); Albumin Level 3.9 g/dl (3.5-5.0); Albumin/Globulin Ratio 1.3 (1.1-1.8); Alkaline Phosphatase 112 U/L (38-126); Aspartate Amino Transferase 45 U/L (17-59); Bilirubin,Total 0.4 mg/dl (0.2-1.3); Blood Urea Nitrogen 18 mg/dl (9-20); Calcium 9.6 mg/dl (8.4-10.2); Carbon Dioxide 24 mmol/L (22.0-30.0); Chloride 98 mmol/L (98-107); Chol/HDL Ratio 7.1 (1-3.5); Cholesterol 247 mg/dl (140-200); Estimated Glomerular Filt Rate 101 ml/min (>60); GFR (African American) 122 ML/MIN (>60); Globulin 2.9 g/dL (1.3-3.2); Glucose 397 mg/dl (74-100); HDL Cholesterol 35 mg/dl (40-60); Sodium 130 mmol/L (136-145); Total Protein,Serum 6.8 g/dl (6.3-8.2)
[2021-03-08 20:50] LABS: Direct LDL Cholesterol < 30.00 mg/dL (100-129)
[2021-03-08 22:55] LABS: Triglycerides 2618 mg/dl (30-150)
[2021-03-08 23:45] LABS: Hemoglobin A1C > 14.0 % (4.0-6.0)
== END ==
PROVIDERS: Visit Provider Internal Medicine Adolescent Medicine
DX: E11.69 Type 2 diabetes mellitus with other specified complication (principal); E78.5 Hyperlipidemia, unspecified; Z79.4 Long term (current) use of insulin
CPT/HCPCS: 80053; 80061; 83036

== ENCOUNTER → 2021-03-22 13:14 | Outpatient (CLI) | payer OTHER, SELFPAY ==
[2021-03-22 13:59] LABS: Basophils # 0.1 K/mm3 (0-0.2); Basophils % 0.9 % (0.1-2.0); Eosinophils # 0.4 K/mm3 (0.0-0.4); Hematocrit 39.6 % (42.0-52.0); Hemoglobin 12.7 g/dL (14.1-18.0); Lymphocytes # 1.7 K/mm3 (0.7-4.5); Lymphocytes % 31.2 % (10-50); Mean Corpuscular HGB Conc 32.2 g/dL (31.8-35.4); Mean Corpuscular Hemoglobin 28.6 pg (27.0-31.2); Mean Corpuscular Volume 88.8 fl (80-94); Mean Platelet Volume 8.9 fl (7.4-10.4); Monocytes # 0.3 K/mm3 (0.1-1.0); Neutrophils % 54.9 % (37.0-80.0); Platelet Count 294 K/mm3 (142-424); Red Blood Count 4.46 M/mm3 (4.60-6.20); Red Cell Distribution Width 14.2 % (11.5-17.5); White Blood Count 5.4 K/mm3 (4.8-10.8)
[2021-03-22 16:37] LABS: Chloride 101 mmol/L (98-107)
[2021-03-22 16:38] LABS: Potassium 4.5 mmoL/L (3.5-5.1); Sodium 136 mmol/L (136-145)
[2021-03-22 16:41] LABS: Anion Gap 12.5 mEq/L (5-15); Blood Urea Nitrogen 20 mg/dl (9-20); Calcium 9.5 mg/dl (8.4-10.2); Carbon Dioxide 27 mmol/L (22.0-30.0); Estimated Glomerular Filt Rate 88 ml/min (>60); GFR (African American) 106 ML/MIN (>60); Glucose 315 mg/dl (74-100)
== END ==
PROVIDERS: Visit Provider Anesthesiology
DX: Z01.812 Encounter for preprocedural laboratory examination (principal); Z20.822 Contact with and (suspected) exposure to COVID-19; M51.36 Other intervertebral disc degeneration, lumbar region
CPT/HCPCS: 36415; 80048; 85025; C9803; U0003; U0005

== ENCOUNTER 2021-03-24 06:07 | Day surgery (SDC) | payer OTHER, SELFPAY ==
[2021-03-16 13:14] VITALS: BMI 28.8
[2021-03-24] VITALS (7 sets, daily range): BP systolic 93–129; BP diastolic 53–76; PULSE 62–75; RESP 16–20; TEMP 36.1–36.7; O2SAT 89–100
--- NOTE | 2021-03-24 07:18 | P.PN_ITS ---
[facility] Anesthesia Checklist - Patient Identification Patient Identification: Arm Band - Structural Data Admitted From: Home Planned Operative Procedure/s: Spinal cord lead revision Consent for Planned Operative Procedure(s) Verified: Yes - NPO Status Verified Time NPO: 00:00 - Additional verifications Anesthesia Reactions: No Hx Blood Transfusions: No Blood Transfusion Reaction: No - Airway Assessment C-Spine Mobility Assessed: Yes TMJ Mobility Assessed: Yes Dentition: Edentulous - Neurological Assessment Level of Consciousness: Awake Hx Seizures: No Numbness or tingling in extremities: No - Anesthesia Plan Anesthesia Risk discussed: Yes Anesthesia Plan: Verified ASA Class: III Anesthesia Type: MAC [facility] History I have reviewed the patient's past medical history: Yes 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: Reports:: Coronary Artery Disease, Diabetes Mellitus Type 2, Gastroesophageal Reflux Disease(GERD), Hyperlipidemia, Hypertension Denies:: Cancer, Diabetes Mellitus Type 1, Internal Pacemaker, MRSA, Seizures *Have you ever received a pneumonia vaccine?: No *Have you received a flu vaccine this season?: No Other 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: Denies: Blood Transfusion Reaction Anesthesia experience/problems:: None Laterality Cases: Bilateral: Other Other Surgeries: Yes: Cardiac Catheterization, Coronary Stent, Other (Lumbar back sxX3). No: Pacemaker Amputation: No Fractures: No - *Social History Last grade of school completed: High school graduate Smoking Status: Never smoker Alcohol Intake: never Alcohol Intake Frequency:: holidays/special occasions only Substance Use Type: denies use *Occupational Status:: disabled Housing: house Household Members: spouse *Travel in the last 8 weeks: None Family Hx:: Cancer, Heart Attack
--- NOTE | 2021-03-24 15:02 | P.OP_ITS ---
Date of procedure: 03/24/21 Pre-op Diagnosis:: Malfunctioning pain stimulator system Post-op Diagnosis:: Same Procedure performed:: Removal and replacement of pain stimulator generator Surgeon:: Gurmeet Murphy MD FLOOR SUPERVISOR:: Derrick Holguin, Elvira Rodrigues, Fermín Chew, Patrice Gilbert, Jermain Albert, Sukhwinder Rodrigues, Other Anesthesia: MAC Estimated blood loss (mL): 10 Operative findings:: Not applicable Operative note:: Once adequate IV sedation was obtained utilizing anesthesia and local anesthesia was 1% Xylocaine with epinephrine the patient was placed on the operating table and his back and flank regions were prepped and draped in sterile fashion. An incision was made over the generator lead placement and with careful dissection the leads and fixation device was removed without difficulty. An incision was then made over the generator itself and the generator and residual leads also removed. At this point Dr. Galarza placed 2 epidural leads in the epidural space to the area desired by Dr. Galarza. These were then fixed to the paraspinal fascia with fixation devices and 2-0 Prolene. Utilizing the tunneling device the leads were passed from the paraspinal incision to the pocket incision without difficulty. The leads were then connected to the generator which was placed in the pocket. System noted to be functioning properly. Both pockets irrigated with antibiotic solution. The subcutaneous tissues were closed with 2-0 Vicryl. Skin closure which is 4-0 nylon. Wound VAC dressings and binder is applied to the wound. The patient taught procedure well was taken recovery sedation. Upon recovery patient be discharged home with home will be follow-up in 1 week per protocol. Antibiotic x1 week per protocol. The patient tolerated the procedure well Condition: stable Disposition: PACU Complications:: None
--- NOTE | 2021-03-24 15:04 | HMH.OPNOTE ---
Date of procedure: 03/24/21 Pre-op Diagnosis:: Degenerative disc disease of the lumbar spine with lumbar radiculopathy symptoms with nonfunctioning spinal cord stimulator system Post-op Diagnosis:: Same Procedure performed:: Replacement spinal cord stimulator leads epidural x2 with tunneling for replacement of spinal cord stimulator system Surgeon:: Nick Galarza MD SOCIAL SCIENCE PROFESSOR:: Patrice Gilbert Anesthesia: MAC Estimated blood loss (mL): 5 Clinical Note:: This patient is a pleasant 55-year-old white male who we have been treating for low back pain with lumbar radicular symptoms. He did have a fall recently after which he had problems with his spinal cord stimulator system. It was noted that his leads did migrate. His system is not functioning properly now. He is not getting adequate stimulation. There is significant impedances to his spinal cord stimulator system. He has a nonfunctioning spinal cord stimulator system when it was working he was getting 70 to 80% relief. We will replace his entire spinal cord stimulator system today this will be with the [employer] wavewriter MRI conditional system. Operative findings:: None Operative note:: Informed consent was obtained and the risk and benefits of the procedure were explained to the patient. The patient was taken to the operating room placed prone on the procedure table. His existing spinal cord stimulator system was removed. This was done by Dr. Lidia barton. I placed a 17-gauge epidural needle into the existing back incision. Advanced into the L2-L3 epidural space. After confirmation needle placement epidural space stimulating lead was inserted and advanced very easily to the T7-T8 vertebral body. A second needle was inserted advanced again into the L2-L3 epidural space. After confirmation needle placement in the epidural space a second stimulating lead was inserted and advanced again very easily to the T7-T8 vertebral body. The stylets of the leads and the needles were removed. The leads were secured to the fascia with anchoring devices and 2-0 Prolene. I tunneled the leads from the back to the generator pocket and attached the leads to the generator. Impedances were checked and found to be okay. Both incisions were irrigated with bacitracin solution. Both incisions were then closed with 2-0 Vicryl followed by 4-0 nylon. A wound VAC was placed over both incisions and the patient was placed in an abdominal binder. He was taken recovery in stable condition. Patient tolerated procedure well with no complications. Patient was programmed by the [employer] loan representative with good stimulation in all areas of pain. Patient was discharged home neurologically intact with good relief of pain symptoms. Plan and disposition: We will follow-up with this patient in 1 week for wound check and reprogramming. We will follow-up in 2 weeks for suture removal. If he has any problems or questions he is to call us back in the pain clinic. We did give him Bactrim DS postoperatively for postop antibiotics. Condition: stable Disposition: PACU Complications:: None
[2022-01-27 10:54] LABS: POC Glucose,Bedside 234 (70-110)
== END 2021-03-24 11:21 | disposition home or self-care (01) ==
LOC: OR 06:08
PROVIDERS: PCP Internal Medicine Adolescent Medicine; Visit Provider Anesthesiology
PROC: (CPT 63663; principal; 2021-03-24 07:30)
DX: M51.16 Intervertebral disc disorders with radiculopathy, lumbar region (principal); T85.113A Breakdown (mechanical) of implanted electronic neurostimulator, generator, initial encounter; I25.10 Atherosclerotic heart disease of native coronary artery without angina pectoris; K21.9 Gastro-esophageal reflux disease without esophagitis; E78.5 Hyperlipidemia, unspecified; I10 Essential (primary) hypertension; Z80.9 Family history of malignant neoplasm, unspecified; Z82.3 Family history of stroke; E11.9 Type 2 diabetes mellitus without complications; Z88.0 Allergy status to penicillin; Z79.82 Long term (current) use of aspirin; Z79.899 Other long term (current) drug therapy; Z79.4 Long term (current) use of insulin
CPT/HCPCS: 63663; 63688; 82962; 96374; C1778; C1820; J2704

== ENCOUNTER → 2021-03-30 11:10 | Outpatient (POV) | payer OTHER, SELFPAY ==
[2021-03-30 11:17] VITALS: BP 135/77; PULSE 79; RESP 20; TEMP 36.4; O2SAT 96; BMI 30.5
--- NOTE | 2021-03-30 11:40 | P.CONS_ITS ---
[facility] Pain Management SOAP Note Subjective:: Patient is a 56-year-old white male who presents today for follow-up after spinal stimulator with change out. He is here today to have his wound VAC removed. He says he is much more functional with minimal pain to his low back at this time. He rates his pain a 3 out of 10. We do treat the patient for low back pain as well as bilateral lower extremity pain. He does take gabapentin 800 mg 1 tablet p.o. 3 times daily. The patient was having displacement of his previous leads with [employer]. During reprogramming, the wire rope sales representative noted the patient to have low impedances and as a result did schedule the patient for change out of device. He is doing well overall at this time. Review of Systems General: No recent weight changes, no fever, no sleep disturbances Respiratory: No cough, no shortness of air, no recurring pulmonary infections Cardiovascular/peripheral vascular: No chest pain, no palpitations, no edema, no shortness of breath Gastrointestinal: No new onset incontinence, normal bowel movements reported Genitourinary: No new onset incontinence Musculoskeletal: [Intermittent low back pain] Psychiatric: [Normal mood/affect] Neurological: [Denies weakness in extremities], [denies balance issues] Objective:: Physical exam General: Alert and oriented x3, no acute distress, pleasant and cooperative Lungs: Respirations even and unlabored, symmetrical chest expansion Eyes: PERRL Musculoskeletal: Flexion and extension of lumbar [spine] somewhat guarded secondary to pain, [antalgic gait noted] Neurological: Speech clear, no gross sensory deficit Assessment:: Degenerative disc disease lumbar spine with lumbar radiculopathy symptoms, postlaminectomy lumbar spine Plan:: Patient is doing well overall since change out of his device. We will schedule him for 2-week follow-up to remove sutures. His incision is well approximated, no redness, no drainage, no edema to site. He is doing well overall. We will see him back in 2 weeks. Patient has been instructed to contact the clinic with any concerns before the next appointment. Dr. Galarza has reviewed this note and agrees with this plan of care. This note was dictated using voice recognition software and make contain errors or omissions. [facility] History I have reviewed the patient's past medical history: Yes 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: Reports:: Coronary Artery Disease, Diabetes Mellitus Type 2, Gastroesophageal Reflux Disease(GERD), Hyperlipidemia, Hypertension Denies:: Cancer, Diabetes Mellitus Type 1, Internal Pacemaker, MRSA, Seizures *Have you ever received a pneumonia vaccine?: No *Have you received a flu vaccine this season?: No Other 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: Denies: Blood Transfusion Reaction Laterality Cases: Bilateral: Other Other Surgeries: Yes: Cardiac Catheterization, Coronary Stent, Other (Lumbar back sxX3). No: Pacemaker Amputation: No Fractures: No - *Social History Smoking Status: Never smoker Alcohol Intake: never Alcohol Intake Frequency:: holidays/special occasions only Substance Use Type: denies use *Occupational Status:: other Housing: house Household Members: spouse *Travel in the last 8 weeks: None Family Hx:: Cancer, Heart Attack
== END ==
PROVIDERS: Visit Provider Clinical Nurse Specialist Family Health
DX: M51.16 Intervertebral disc disorders with radiculopathy, lumbar region (principal); M96.1 Postlaminectomy syndrome, not elsewhere classified
CPT/HCPCS: 99212; G0463

== ENCOUNTER → 2021-04-13 10:59 | Outpatient (POV) | payer OTHER, SELFPAY ==
[2021-04-13 11:10] VITALS: BP 151/82; PULSE 76; RESP 18; O2SAT 98; BMI 29.6
--- NOTE | 2021-04-13 11:19 | HMH.PAINSOAP ---
[facility] Pain Management SOAP Note Subjective:: Patient is a pleasant 56-year-old male who comes in here today for a 3-week follow-up after a spinal cord stimulator placement. Patient is currently being treated for degenerative disc disease of lumbar spine with lumbar radiculopathy symptoms, postlaminectomy lumbar spine. After the procedure, patient says that he has been getting significant relief. He rates his pain today as 3/10. He is currently taking gabapentin 800mg that is prescribed by Dr. Reyes. Today, patient comes in for a surgical suture removal and wound check. Patient denies any fever or systemic symptoms. He is doing better overall after the change up. His Yunior number is [phone] with an active morphine equivalent of 0. Review of Systems General: No recent weight changes, no fever, no sleep disturbances Respiratory: No cough, no shortness of air, no recurring pulmonary infections Cardiovascular/peripheral vascular: No chest pain, no palpitations, no edema, no shortness of breath Gastrointestinal: No new onset incontinence, normal bowel movements reported Genitourinary: No new onset incontinence Musculoskeletal: [low back pain] Psychiatric: [Normal mood/affect] Neurological: [Denies weakness in extremities], [denies balance issues] Objective:: Physical exam General: Alert and oriented x3, no acute distress, pleasant and cooperative Lungs: Respirations even and unlabored, symmetrical chest expansion Eyes: PERRL Musculoskeletal: Flexion and extension of lumbar [spine] somewhat guarded secondary to pain, [antalgic gait noted] Skin: Surgical site is healing well. There is no erythema, discharge, and swelling. Neurological: Speech clear, no gross sensory deficit Assessment:: Degenerative disc disease of lumbar spine with lumbar radiculopathy symptoms Postlaminectomy symptoms Plan:: Patient recently had a change of spinal cord stimulator device because his leads got displaced. Since the change of, patient has been doing better reports no issues. We removed the patient's surgical sutures today and the surgical site looks to be healing well. There is no noticeable discharge, erythema, and swelling. We placed Steri-Strips on the surgical sites. We advised the patient to wearing his abdominal binder. [employer] telephone claims representative is seeing the patient today for some reprogramming. We will follow up with the patient in 2 weeks. Patient has been instructed to contact the clinic with any concerns before the next appointment. Dr. Bux has reviewed this note and agrees with this plan of care. This note was dictated using voice recognition software and make contain errors or omissions. [facility] History 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: Reports:: Coronary Artery Disease, Diabetes Mellitus Type 2, Gastroesophageal Reflux Disease(GERD), Hyperlipidemia, Hypertension Denies:: Cancer, Diabetes Mellitus Type 1, Internal Pacemaker, MRSA, Seizures *Have you ever received a pneumonia vaccine?: No *Have you received a flu vaccine this season?: No Other 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: Denies: Blood Transfusion Reaction Laterality Cases: Bilateral: Other Other Surgeries: Yes: Cardiac Catheterization, Coronary Stent, Other (Lumbar back sxX3). No: Pacemaker Amputation: No Fractures: No - *Social History Smoking Status: Never smoker Alcohol Intake: never Alcohol Intake Frequency:: holidays/special occasions only Substance Use Type: denies use *Occupational Status:: unemployed Housing: house Household Members: spouse *Travel in the last 8 weeks: None Family Hx:: Cancer, Heart Attack
== END ==
PROVIDERS: Visit Provider Clinical Nurse Specialist Family Health
DX: M51.16 Intervertebral disc disorders with radiculopathy, lumbar region (principal); M96.1 Postlaminectomy syndrome, not elsewhere classified
CPT/HCPCS: 99212; G0463

== ENCOUNTER → 2021-05-10 10:56 | Outpatient (POV) | payer MEDICARE, OTHER, SELFPAY ==
[2021-05-10 11:12] VITALS: PULSE 69; RESP 18; O2SAT 99; BMI 31.0
--- NOTE | 2021-05-10 12:38 | HMH.PAINSOAP ---
[facility] Pain Management SOAP Note Subjective:: Patient is a pleasant 56-year-old male who comes in today for follow-up. Patient is currently being treated for degenerative disc disease of lumbar spine with lumbar radiculopathy symptoms and postlaminectomy symptoms. Patient recently had a change of spinal cord stimulator because his leads moved. Patient says that he has gotten relief but he has been having issues when he goes to bed. He says that he's been having left leg pain at night. We will contact the [employer] employee representative to reach out to the patient. When patient was last here, we did a trigger point injection in the thoracic paraspinous and rhomboids. He says that he had some relief for a few days. He would like to get a repeat of this. Patient denies any issues with his procedures. He rates his pain today as 5/10. Patient is still taking gabapentin 800mg 3 times a day that is prescribed by Dr. Reyes. His Luis number is [phone] with an active morphine equivalent of 0. ORT score is 0, low risk. Drug screens have been reviewed and appropriate. Review of Systems General: No recent weight changes, no fever, no sleep disturbances Respiratory: No cough, no shortness of air, no recurring pulmonary infections Cardiovascular/peripheral vascular: No chest pain, no palpitations, no edema, no shortness of breath Gastrointestinal: No new onset incontinence, normal bowel movements reported Genitourinary: No new onset incontinence Musculoskeletal: Low back pain Psychiatric: [Normal mood/affect] Neurological: [Denies weakness in extremities], [denies balance issues] Objective:: Physical exam General: Alert and oriented x3, no acute distress, pleasant and cooperative Lungs: Respirations even and unlabored, symmetrical chest expansion Eyes: PERRL Musculoskeletal: Flexion and extension of lumbar [spine] somewhat guarded secondary to pain, [antalgic gait noted] Skin: Surgical incision is well approximated and healing well. There is no erythema, drainage, and swelling. Neurological: Speech clear, no gross sensory deficit Assessment:: Degenerative disc disease of the lumbar spine with lumbar radiculopathy symptoms Laminectomy syndrome Plan:: We will asked the [employer] employee representative to contact the patient to see if they can reprogram him. We will also schedule the patient for a trigger point injection on the right thoracic paraspinous and rhomboid. Risks and benefits of the procedure have been explained to the patient. Patient would like to proceed with the procedure. We will order the patient some compounding cream for his back. Risks and benefits of the medication have been explained in detail to the patient. The patient does understand the risk of dependence on the medication when given over a prolonged period. Patient has been advised of risks of oversedation with the prescribed medication. Narcan has been offered to the paitent in the event of oversedation. Patient has been advised that a family member should also be educated regarding administration of Narcan. The patient has been advised to consult with his/her primary care provider and pharmacist regarding drug-drug interaction of medications currently prescribed. Patient has been prescribed a controlled substance after being counseled on the medication, medication safety, and possible side effects. LUIS report has been obtained and reviewed prior to prescription and found to be appropriate. Opioid contract was reviewed and signed by the patient, and that they have agreed to all of the terms set forth by our compliance program. Patient has been instructed to contact the clinic with any concerns before the next appointment. Dr. Galarza has reviewed this note and agrees with this plan of care. This note was dictated using voice recognition software and make contain errors or omissions. [facility] History 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: Reports:: Coronary Artery
== END ==
PROVIDERS: Visit Provider Clinical Nurse Specialist Family Health
DX: M51.16 Intervertebral disc disorders with radiculopathy, lumbar region (principal); M96.1 Postlaminectomy syndrome, not elsewhere classified
CPT/HCPCS: 99212; G0463

== ENCOUNTER 2021-06-25 10:13 | Day surgery (SDC) | payer MEDICARE, OTHER, SELFPAY ==
[2021-06-25 10:23] VITALS: BP 159/88; PULSE 76; RESP 16; TEMP 36.4; O2SAT 99; BMI 32.1
[2021-06-25 11:04] VITALS: BP 148/88; PULSE 73; RESP 18; O2SAT 97
[2021-06-25 11:05] VITALS: BP 145/82; PULSE 73; RESP 18; O2SAT 96
[2021-06-25 11:12] VITALS: BP 149/85; PULSE 76; RESP 20; O2SAT 99
--- NOTE | 2021-06-25 11:38 | HMH.PMPROC ---
- Procedure Date: 06/25/21 Time: 11:38 Anesthesiologist:: Ela Plata MD Complications:: None Pre-procedure Diagnosis:: Myofascial pain syndrome, chronic neck pain, chronic bilateral shoulder pain Post-procedure Diagnosis:: Same Indications for Procedure:: Patient is a very pleasant 56-year-old white male who presents today for sided neck and shoulder pain and mid back pain related to the above diagnosis. He is trying failed conservative treatment getting oral pain medications and home stretching program for greater than 6 weeks. Of note, the patient also has chronic low back pain rating into his legs related to degenerative disease of the lumbar spine lumbar radiculopathy and postlaminectomy syndrome and has a [employer] spinal cord stimulator in place. Previously undergone trigger point injections to the right thoracic paraspinal and rhomboid muscles with significant pain relief. He is requesting repeat injections today. The plan for today is for the patient to undergo right-sided point injections to the upper trapezius, thoracic paraspinal, and rhomboid muscles. Procedure Details:: Informed consent was obtained and the risk and benefits of the procedure was explained to the patient. Patient was taken to the procedure room. Next, right neck and mid back were prepped using ChloraPrep. Trigger points were palpated and marked. Each of these trigger points were injected with bupivacaine 0.25% 2 mL and Depo-Medrol 40 mg. A total of[80] milligrams Depo-Medrol was used for bilateral trigger points of the right upper trapezius, thoracic paraspinal, and rhomboid muscles]. Bandages were placed over the injection sites. Patient tolerated procedure well with no complications. Plan and Disposition:: Follow-up with this patient in 2 weeks. Will reevaluate pain symptoms at that time.
== END 2021-06-25 11:13 | disposition home or self-care (01) ==
LOC: SC.PAINP 10:15
PROVIDERS: PCP Internal Medicine Adolescent Medicine; Visit Provider Anesthesiology Pain Medicine
DX: G89.29 Other chronic pain (principal); M25.512 Pain in left shoulder; M25.511 Pain in right shoulder; M79.18 Myalgia, other site; M54.2 Cervicalgia
CPT/HCPCS: 20553; J1040

== ENCOUNTER → 2021-07-15 11:02 | Outpatient (POV) | payer MEDICARE, OTHER, SELFPAY ==
[2021-07-15 11:28] VITALS: BP 136/85; PULSE 68; RESP 18; TEMP 36.2; O2SAT 99; BMI 30.4
--- NOTE | 2021-07-15 12:38 | HMH.PAINSOAP ---
[facility] Pain Management SOAP Note Subjective:: Patient is a pleasant 56-year-old male who is here for a follow up after trigger point injections to the upper trapezius, thoracic paraspinals, right rhomboid muscles on 06/25/2021. Patient is currently being treated for chronic neck pain, degenerative disc disease of the lumbar spine with lumbar radiculopathy symptoms, postlaminectomy syndrome. After the procedure, patients reports minimal relief of about 60% relief and rates pain today at 8 out of 10. This is the patient's second trigger point injections. He says that the second 1 did not give him as much relief as the first 1. Today, patient is complaining of right shoulder pain that has been bothering him for several months now. Patient is having trouble raising his right shoulder up over his head. Denies any recent falls or traumas. For pain management, patient has a [employer] spinal cord stimulator. He will be meeting with the [employer] rep on Monday next week. He is also taking gabapentin 800 mg 3 times a day that is prescribed by Dr. Oneil. [facility] [place] number [id number] with an active morphine equivalent 0. Drug screens have been reviewed and appropriate. General: No recent weight changes, no fever, no sleep disturbances Respiratory: No cough, no shortness of air, no recurring pulmonary infections Cardiovascular/peripheral vascular: No chest pain, no palpitations, no edema, no shortness of breath Gastrointestinal: No new onset incontinence, normal bowel movements reported Genitourinary: No new onset incontinence Musculoskeletal: Right shoulder pain, low back pain, right rhomboid pain Psychiatric: [Normal mood/affect] Neurological: [Denies weakness in extremities], [denies balance issues] Objective:: General: Alert and oriented x3, no acute distress, pleasant and cooperative, [on room air] Lungs: Respirations even and unlabored, symmetrical chest expansion Eyes: PERRL Musculoskeletal: Flexion and extension of lumbar [spine] somewhat guarded secondary to pain; Right Shoulder: +Gregg, +Neer Test, Unable to abduct right shoulder past 90 degrees Neurological: Speech clear, no gross sensory deficit Assessment:: Right shoulder pain, degenerative disc disease of the lumbar spine with lumbar radiculopathy symptoms, postlaminectomy syndrome, myofascial pain of the right thoracic paraspinous and right rhomboid Plan:: Patient had minimal relief after trigger point injections at right upper trapezius, thoracic paraspinals, rhomboid muscles. Today, patient is complaining of right shoulder pain. He is unable to abduct his right shoulder past 90 degrees. He has a positive Gregg and Neer test. Patient has tried and failed conservative therapy such as oral medication, physical therapy, and at home exercises for greater than 6 weeks. Schedule the patient for a right suprascapular nerve block. I will also order a right shoulder MRI. Patient most likely has a tear on his rotator cuff. Subsequently, I will refer this patient to Ortho. Patient has been instructed to contact the clinic with any concerns before the next appointment. Dr. Galarza has reviewed this note and agrees with this plan of care. This note was dictated using voice recognition software and make contain errors or omissions. [facility] History 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: Reports:: Coronary Artery Disease, Diabetes Mellitus Type 2, Gastroesophageal Reflux Disease(GERD), Hyperlipidemia, Hypertension Denies:: Cancer, Diabetes Mellitus Type 1, Internal Pacemaker, MRSA, Seizures *Have you ever received a pneumonia vaccine?: No *Have you received a flu vaccine this season?: No Other 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: Denies: Blood Transfusion Reaction Laterality Cases: Bilateral: Other Other Surgeries: Yes: Cardiac Catheterization, Coronary Stent, Other (Lumbar back sxX3). No: Pacemaker Amputation: No Fractures: No - *Social History Smoking Status: Never smoker Alcohol Intake: never Alcohol
== END ==
PROVIDERS: Visit Provider Student in an Organized Health Care Education/Training Program
DX: M25.511 Pain in right shoulder (principal); M51.16 Intervertebral disc disorders with radiculopathy, lumbar region; M96.1 Postlaminectomy syndrome, not elsewhere classified; M79.12 Myalgia of auxiliary muscles, head and neck
CPT/HCPCS: 99212; G0463

== ENCOUNTER → 2021-07-29 12:50 | Outpatient (CLI) | payer MEDICARE, OTHER, SELFPAY ==
--- NOTE | 2021-07-29 12:56 | CT_ITS ---
FINAL REPORT CLINICAL HISTORY: RT SHOULDER PAIN PATIENT STATES FOR ALMOST A YEAR, NO KNOWN INJURY, COULD NOT HAVE MRI DUE TO METAL IN BACK FINDINGS: Axial images through the right shoulder was performed by computed tomography. Sagittal coronal reformatted images were obtained and reviewed. This study was performed with techniques to keep radiation doses as low as reasonably achievable (ALARA). Individualized dose reduction techniques using automated exposure control or adjustment of mA and/or kV according to the patient's size were employed. No fracture is identified. There is mild a.c. joint degenerative change. The musculature is intact. No significant joint effusion is identified. IMPRESSION: Mild a.c. joint degenerative change. Reviewed, Interpreted and Dictated by Maykel Saha III, MD Transcribed by Shayy March Authenticated by Maykel Saha III, MD on 07/29/2021 03:11:55 PM [facility]
== END ==
PROVIDERS: PCP Internal Medicine Adolescent Medicine; Visit Provider Student in an Organized Health Care Education/Training Program
DX: M25.511 Pain in right shoulder (principal)
CPT/HCPCS: 73200

== ENCOUNTER 2021-08-23 15:33 | Emergency (ER) | payer MEDICARE, OTHER, SELFPAY ==
[2021-08-23 15:45] VITALS: BMI 30.4
--- NOTE | 2021-08-23 15:46 | XR_ITS ---
PROCEDURE INFORMATION: Exam: XR Left Wrist Exam date and time: 08/23/2021 4:25 PM Age: 56 years old Clinical indication: Injury or trauma; Other: Caught in drill press; Blunt trauma (contusions or hematomas); Wrist; Left; Injury date: 08/19/21; Additional info: Hurt left wrist- caught in drill press continued pain and bruising. TECHNIQUE: Imaging protocol: XR Left wrist. Views: 1 or 2 views. COMPARISON: No relevant prior studies available. FINDINGS: Bones/joints: There is no evidence of acute fracture. There is no evidence of joint malalignment or dislocation. Soft tissues: No focal soft tissue swelling. IMPRESSION: 1. No evidence of acute fracture. 2. No evidence of acute dislocation.
[2021-08-23 16:20] VITALS: BP 162/98; PULSE 80; RESP 19; TEMP 36.6; O2SAT 98; BMI 32.3
--- NOTE | 2021-08-23 16:37 | HMH.EDUTC ---
[facility] Disposition Clinical Impression: Wrist sprain Qualifiers: Encounter type: initial encounter Laterality: left Qualified Code(s): S63.502A - Unspecified sprain of left wrist, initial encounter Disposition: Home, Self-Care Condition on Discharge: Good Instructions: DI for Wrist Sprain, Wrist Sprain, How To Perform RICE (Rest, Ice, Compress, Elevate) Additional Instructions: *RICE, Rest the extremity, Ice 15-20 minutes 3-4 times daily, Compress- wear the addison wrap as discussed as much as possible to help reduce swelling and pain, Elevate the extremity when at rest *Addison wrap is for support and help control swelling, use it except in the shower. Be sure that is not to tight but not to loose either *Elevate when resting *Ibuprofen as directed on package every 6-8 hours as needed for pain an inflammation. If need something more can take Tylenol in between doses of Ibuprofen to help Immediately follow up with your family doctor for new or worsening of symptoms, or no noticeable improvement over the next 3-5 days Prescriptions: Doxycycline Monohydrate [Doxycycline Whitman 100mg Tab] 100 mg PO BID #14 tab Transmission Status: Pending to [id number] Referrals: Anthony Gallegos MD [Primary Care Provider] - As needed Time of Disposition: 17:08 Medical Decision Making - Yunior Inquiry Pt receiving controlled substance: No Yunior was queried for this patient: No Vital Signs: 08/23/21 16:20 Temperature 97.8 F Temperature Source Oral Pulse Rate [Right Radial] 80 Respiratory Rate 19 Blood Pressure [Right Arm] 162/98 H Blood Pressure Mean [Right Arm] 119 Blood Pressure Source [Right Arm] Automatic Cuff Blood Pressure Position [Right Arm] Sitting 02 Sat by Pulse Oximetry 98 Oxygen Delivery Method Room Air - Radiology Data #1 Image(s): Wrist Image Reviewed: Yes I have reviewed radiologist's interpretation IMPRESSION: 1. No evidence of acute fracture. 2. No evidence of acute dislocation. [facility] HPI - General Stated complaint: ao 08/22@1600Injured L arm Time Seen by Provider: 08/23/21 16:37 Mode of Arrival: EMS Source of Information: Patient Limitations: No Limitations Description of Symptoms (Recalled from Triage Doc. by RN): Pt stated that his hand got caught in a drill press. His left wrist is hurting for the last 2 weeks. He just noticed bruising around it. HEENT Symptoms (Recalled from RN notes): No Resp Symptoms (Recalled from RN notes): No Skin Symptoms (Recalled from RN notes): No MS Symptoms (Recalled from RN notes): Yes Functional Status (Recalled from RN notes): n/a - History of Present Illness Provider Complaint: Patient states that he got his arm caught in drill press about 2 weeks ago and it caused a laceration on his forearm and several abrasions on his hand States that it has been sore and hurts when he moved it States that today he noticed the bruising was worse and the cut on his forearm was looking infected it was red and warm so he came in - Related Data Home Medications Medication Instructions Recorded Confirmed Metformin HCl [Glucophage 500mg 1,000 mg PO BID 11/05/17 08/03/21 Tablet] Omeprazole [Omeprazole 20mg Tab] 20 mg PO DAILY 11/05/17 08/03/21 aspirin 81 mg tablet,delayed 81 mg PO DAILY 07/04/18 08/03/21 release duloxetine 60 mg capsule,delayed 60 mg PO DAILY 07/04/18 08/03/21 release fenofibrate nanocrystallized 145 145 mg PO DAILY 07/04/18 08/03/21 mg tablet omega-3 fatty acids 500 mg capsule 500 mg PO DAILY 07/04/18 08/03/21 atorvastatin 40 mg tablet 80 mg PO QHS 09/18/18 08/03/21 gabapentin 600 mg tablet 800 mg PO QID tab 09/18/18 08/03/21 Insulin NPH Hum/Reg Insulin Hm 75 unit SQ DAILY 10/23/19 08/03/21 [Humulin 70/30 Insulin 100 Units/mL 10mL Vial] Clopidogrel Bisulfate [Plavix] 75 mg PO DAILY 03/16/21 08/03/21 Insulin Aspart [Novolog Flexpen] 15 unit SQ TID 03/16/21 08/03/21 Sitagliptin Phosphate [Januvia 100 mg PO DAILY 03/16/21 08/03/21 100m
[2021-08-23 17:17] VITALS: BP 162/98; PULSE 80; RESP 19; TEMP 36.6; O2SAT 98
== END 2021-08-23 17:23 | disposition home or self-care (01) ==
PROVIDERS: Emergency Provider Nurse Practitioner; PCP Internal Medicine Adolescent Medicine
DX: S63.502A Unspecified sprain of left wrist, initial encounter (principal); W22.8XXA Striking against or struck by other objects, initial encounter
CPT/HCPCS: 73100; 99212; G0463

== ENCOUNTER → 2022-02-23 12:01 | Outpatient (CLI) | payer MEDICARE, OTHER, SELFPAY ==
--- NOTE | 2022-02-23 | CA_ITS ---
APPROVED REPORT Exam: Pharmacologic Technologist: Flora Otto, Ht: 5 ft 8 in Wt: 203 lbs BSA: 2.06 m2 HR: 58 bpm BP: 140/84 mmHg Rhythm: sinus rohit, low voltage QRS 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: HTN, Hyperlipidemia, Diabetic ??? Insulin Medications: Lisinopril,,,,, Omeprazole,,,,, Aspirin,,,,, INSULIN,,,,, CloPIdogrel,,,,, DulOXETINE,,,,, BisOPROLOL Fumarate,,,,, AtorvaASTATIN,,,,, DOxycycline,,,,, NitrogGLYCERIN,,,,, FeNOfibrate nanocrystallized,,,,, Cardiac Risk Factors: HTN, Hyperlipidemia, Diabetes (insulin) Stress Test Details Test: LEXISCAN HR Resting HR: 59 bpm Max Heart Rate (APMHR): 165.276231 bpm Max HR Achieved: 81 bpm Target HR (85% APMHR): 140.286517 bpm % of APMHR: 49.09 Recovery HR: 73 bpm BP Resting BP: 140/84 mmHg Max BP: 140/84 mmHg Recovery BP: 129.0/78.0 mmHg ECG Resting ECG: sinus rohit, low voltage QRS Clinical Exercise duration: 04:00 min Highest Stage Achieved: Stress ECG Conclusion During lexiscan pt experinced very mild SOA and head discomfort. No CP noted. No arrhythmias noted. No significant ST changes. Unremarkable lexiscan stress. Myoview images reported separately. Test Summary . . . . . Stop exercise at 04:00 . . . . Electronically signed by : Robin Alonso MD 02/23/2022 17:29:19
--- NOTE | 2022-02-23 12:01 | NM_ITS ---
APPROVED REPORT Exam: Nuclear Stress Test Indication: CAD, HTN, DM, HYPERLIPIDEMIA, FM HX, C.P., SOB Patient Location: Outpatient Stress Tech: Flora Otto [place] Tech:GUDELIA Quezada RT (R)(N)(M) Ht: 5 ft 7 in Wt: 205 lbs HR: 58 bpm BP: 140/84 mmHg BSA: 2.04 m2 TID: 1.46 BMI: 32.1 History: CAD, HTN, DM, HYPERLIPIDEMIA, FM HX, C.P., SOB Procedure: Patient received a 0.4 mg of intravenous Lexiscan, resting heart rate 58 bpm, resting blood pressure 140/84 mmHg, with Lexiscan maximum heart rate achived was 81 bpm which is Less than 85 % of the maximum predicted heart rate and blood pressure was 117/63 mmHg. With Lexiscan, patient denied any complaint of chest pain. Electrocardiogram Resting electrocardiogram showed sinus rhythm, with Lexiscan there is less than 1.[address] segment depression noted from the baseline EKG. The EKG portion of the Lexiscan is nondiagnostic. Cardiac Stress and Resting SPECT Images: Cardiac Stress and Resting SPECT images were obtained using technetium 99m Myoview 31.3 mCi stress and 10.60 mCi at rest. Gated SPECT for analysis of segmental wall motion and calculation of the ejection fraction also done. Prone images were also obtained. Cardiac stress and rest SPECT images show reversible ischemia involving the apex, there is transient ischemic dilatation of left ventricle of 1.46 seen. Computer derived ejection fraction is 45% with no regional wall motion abnormality, right ventricle is mildly enlarged with normal contractility. Conclusion: 1. The EKG portion of the Lexiscan is nondiagnostic. 2. Scintigraphic evidence of reversible ischemia involving the apex, there is transient ischemic dilatation of the left ventricle seen of 1.46. Computer derived ejection fraction 45% with no regional wall motion abnormality, right ventricle is mildly enlarged with normal contractility. 3. Abnormal Lexiscan Myoview study. Electronically signed by : Robin Alonso MD 02/23/2022 17:33:43
--- NOTE | 2022-02-23 12:55 | CA_ITS ---
APPROVED REPORT EXAM: Comprehensive 2D, Doppler, and color-flow Echocardiogram [employer] Product Development Manager: Saima Ceja RVT Ht: 5 ft 8 in Wt: 203lbs BSA: 2.06 BP: 154/76 mmHg Indications: CP,CAD,DD,HTN,HLD 2D Dimensions LVOT 2.03 cm (M/F) 1.5-2.5 LA Volume 32.50 mL LA Volume Index 15.85 mL/m2 (M/F) 16-34 M-Mode Dimensions RVDd 2.45 cm (0.9-2.6) LA Diam 3.81 cm (1.9-4.0) LVDd 5.02 cm (3.5-5.7) Ao Diam 2.74 cm (2.0-3.7) LVDs 3.41 cm (3.5-5.7) IVSd 0.94 cm (0.6-1.1) PWd 0.86 cm (0.6-1.1) EF (Teich) 59.90% FS 32.10% EDV (Teich) 119.30 mL TAPSE 1.74 (<1.7) ESV (Teich) 47.80 mL LV Diastology E Decel Time 197.00 (160-240 msec) E/A Ratio 1.1 MED E' 5.70 (< 7 cm/sec) E'/MED E' Ratio 12.79 (>14) LAT E' 7.40 (<10 cm/sec) E/LAT E' Ratio 9.85 (>14) Aortic Valve AO Peak GR. 4.40 mmHg Mitral Valve MV E Max Mega. 73.00 (40-130 cm/s) MV A Velocity 66.00 (40-130 cm/s) E/A Ratio 1.10 MV Decel. Time 197.00 (160-240 ms) MV PHT 58.00 ms Pulmonary Valve PV Peak Velocity 76.00 (50-150 cm/s) Tricuspid Valve TR P. Velocity 250.00 cm/s RAP Estimate 10.00 mmHg RVSP 35.00 mmHg Left Ventricle Left atrium is mildly enlarged, left ventricle is normal size, estimated ejection fraction approximately 50%, there appears to be mild apical wall hypokinesis. Diastolic parameters are inconclusive. Right Ventricle Right atrium and right ventricle are normal size and contractility. Aortic Valve Aortic valve is minimally thickened and fibrosed there is no aortic stenosis or aortic insufficiency. Mitral Valve Mitral valve grossly normal, there is trace mitral regurgitation. Tricuspid Valve Tricuspid grossly normal, there is trace tricuspid regurgitation. Tricuspid regurgitation jet velocity is inadequate for calculation of the right ventricular systolic pressure. Pulmonic Valve Pulmonic valve is poorly visualized. Great Vessels Aortic root is normal size. Inferior vena cava is poorly visualized. Pericardium No significant pericardial effusion noted. Conclusion 1. Normal left ventricular size, estimated ejection fraction 50% with segmental wall motion abnormality described diastolic parameters are inconclusive. 2. Trace mitral and tricuspid rotation. 3. No significant pericardial effusion noted. 4. Inferior vena cava is poorly visualized. Electronically signed by : Robin Alonso MD 02/23/2022 21:11:35
== END ==
PROVIDERS: PCP Internal Medicine Adolescent Medicine; Visit Provider Physician Assistant
DX: E78.2 Mixed hyperlipidemia (principal); I10 Essential (primary) hypertension; I20.9 Angina pectoris, unspecified; R07.9 Chest pain, unspecified
CPT/HCPCS: 78452; 93017; 93306; A9502; J2785

== ENCOUNTER 2022-03-06 14:37 | Emergency (ER) | payer MEDICARE, OTHER, SELFPAY ==
--- NOTE | 2022-03-06 16:46 | EXP.UTC ---
Discharge Plan Disposition Patient Disposition: Home, Self-Care Condition: Good Prescriptions Prescriptions: New prednisone [prednisone] 20 mg tablet 20 mg PO BID 4 Days Qty: 8 0RF No Action fenofibrate nanocrystallized 145 mg tablet 145 mg PO DAILY duloxetine 60 mg capsule,delayed release(DR/EC) 60 mg PO DAILY omega-3 fatty acids 500 mg capsule 500 mg PO DAILY aspirin [Adult Low Dose Aspirin] 81 mg tablet,delayed release (DR/EC) 81 mg PO DAILY atorvastatin 40 mg tablet 80 mg PO QHS gabapentin 600 mg tablet 800 mg PO QID nitroglycerin 0.4 mg tablet, sublingual 0.4 mg SUBLINGUAL Q5-15M PRN (Reason: chest pain) Qty: 30 1RF Rx Instructions: until response; do not exceed 3 doses per episode amlodipine [Norvasc] 5 mg tablet 5 mg PO DAILY Qty: 90 3RF furosemide 20 mg tablet 20 mg PO DAILY Qty: 30 5RF lisinopril 20 mg tablet 20 mg PO DAILY Qty: 90 3RF clopidogrel 75 mg tablet 75 mg PO DAILY Qty: 30 5RF Rx Instructions: Take 1 tablet by mouth once daily omeprazole 20 MG tablet,delayed release (DR/EC) 20 mg PO DAILY insulin NPH and regular human 100 unit/mL (70-30) suspension 80 unit SQ DAILY doxycycline monohydrate 100 MG tablet 100 mg PO BID Qty: 14 0RF bisoprolol fumarate 5 MG tablet 5 mg PO DAILY insulin aspart U-100 100 unit/mL (3 mL) insulin pen 25 unit SQ TID Rx Instructions: with meals Referrals Follow up/Referrals: Dayton Reyes MD [Primary Care Provider] - See instructions Activity Restrictions/Add. Instructions Additional Instructions/Restrictions: Go home and rest. It would be best if you rested tomorrow too. No heavy lifting. No twisting. Take the oral medications as directed. Follow up with your regular doctor. GO TO THE ER FOR ANY WORSENING SYMPTOMS OR CONCERN, ESPECIALLY BOWEL OR BLADDER ISSUES, SADDLE AREA NUMBNESS, FEVER, ETC Clinical Impressions Clinical Impression: Lumbar radiculopathy Instructions Patient Instructions: DI for Sciatica, Sciatica, Ketorolac Injection, Prednisone Discharge ED Provider: Anthony Quach [facility] HPI General Stated complaint: left leg and hip pain, unknown origin Time Seen by Provider: 03/06/22 16:46 History of Present Illness Provider Complaint: He left lower back pain that radiates down his left leg. He has chronic back pain, but it usually doesn't radiate down his leg. He denies any recent injuries or falls. Related Data Home Medications Medication Instructions Recorded Confirmed omeprazole 20 mg tablet,delayed 20 mg PO DAILY GERD 11/05/17 02/01/22 release aspirin 81 mg tablet,delayed 81 mg PO DAILY heart health 07/04/18 02/01/22 release (Adult Low Dose Aspirin) duloxetine 60 mg capsule,delayed 60 mg PO DAILY NERVES 07/04/18 02/01/22 release fenofibrate nanocrystallized 145 145 mg PO DAILY . 07/04/18 02/01/22 mg tablet omega-3 fatty acids 500 mg capsule 500 mg PO DAILY Supplement 07/04/18 02/01/22 atorvastatin 40 mg tablet 80 mg PO QHS Cholesterol 09/18/18 02/01/22 gabapentin 600 mg tablet 800 mg PO QID nerve pain 09/18/18 02/01/22 bisoprolol fumarate 5 mg tablet 5 mg PO DAILY bp 03/16/21 02/01/22 insulin aspart U-100 100 unit/mL 25 unit SQ TID Diabetes 02/01/22 02/01/22 (3 mL) subcutaneous pen insulin human U-100 NPH-regulr 80 unit SQ DAILY Diabetes 02/01/22 02/01/22 70-30 mix 100 unit/mL subcutaneous susp Previous Rx's Medication Instructions Recorded nitroglycerin 0.4 mg sublingual 0.4 mg sublingual Q5-15M PRN chest 02/05/19 tablet pain #30 tabs doxycycline monohydrate 100 mg 100 mg PO BID #14 tabs 08/23/21 tablet furosemide 20 mg tablet 20 mg PO DAILY Fluid #30 tabs 08/26/21 lisinopril 20 mg tablet 20 mg PO DAILY Hypertension #90 09/03/21 tabs clopidogrel 75 mg tablet 75 mg PO DAILY Blood thinner #30 01/25/22 tabs amlodipine 5 mg tablet (Norvasc) 5 mg PO DAILY #90 tabs
[2022-03-06 17:01] VITALS: BP 107/66; PULSE 70; RESP 18; TEMP 36.8; O2SAT 98; BMI 31.3
[2022-03-06 17:26] VITALS: BP 107/66; PULSE 70; RESP 18; TEMP 36.8
== END 2022-03-06 17:32 | disposition home or self-care (01) ==
PROVIDERS: Emergency Provider Nurse Practitioner Family; PCP Internal Medicine Adolescent Medicine
DX: M54.16 Radiculopathy, lumbar region (principal); I50.31 Acute diastolic (congestive) heart failure; I20.0 Unstable angina; G89.29 Other chronic pain; Z79.02 Long term (current) use of antithrombotics/antiplatelets; Z79.4 Long term (current) use of insulin; Z79.52 Long term (current) use of systemic steroids; Z79.82 Long term (current) use of aspirin; Z79.899 Other long term (current) drug therapy; Z88.0 Allergy status to penicillin
CPT/HCPCS: 96372; 99213; G0463

== ENCOUNTER → 2022-03-10 10:54 | Outpatient (CLI) | payer MEDICARE, OTHER, SELFPAY ==
--- NOTE | 2022-03-10 11:04 | XR_ITS ---
FINAL REPORT CLINICAL HISTORY: HIP PAIN FINDINGS: 2 views of the left hip and an AP pelvis were obtained. There is no acute fracture or dislocation. The joint spaces are intact. There are no soft tissue abnormalities. IMPRESSION: No acute process. Reviewed, Interpreted and Dictated by Kwadwo Sinclair MD Transcribed by Lon Pacheco Authenticated and [facility]
[2022-03-10 15:28] LABS: Basophils # 0.1 K/mm3 (0-0.2); Basophils % 1.4 % (0.1-2.0); Eosinophils # 0.3 K/mm3 (0.0-0.4); Eosinophils % 3.3 % (0.1-12.0); Hematocrit 45.7 % (42.0-52.0); Hemoglobin 14.6 g/dL (14.1-18.0); Lymphocytes # 2.1 K/mm3 (0.7-4.5); Lymphocytes % 28.4 % (10-50); Mean Corpuscular Hemoglobin 28.4 pg (27.0-31.2); Mean Platelet Volume 8.7 fl (7.4-10.4); Monocytes # 0.4 K/mm3 (0.1-1.0); Monocytes % 5.1 % (1.7-9.3); Neutrophils # 4.6 K/mm3 (1.8-7.8); Neutrophils % 61.8 % (37.0-80.0); Platelet Count 349 K/mm3 (142-424); Red Blood Count 5.14 M/mm3 (4.60-6.20); Red Cell Distribution Width 13.7 % (11.5-17.5); White Blood Count 7.4 K/mm3 (4.8-10.8)
[2022-03-10 16:32] LABS: Alanine Aminotransferase 33 U/L (12-78); Albumin Level 4.8 g/dl (3.5-5.0); Alkaline Phosphatase 117 U/L (38-126); Aspartate Amino Transferase 34 U/L (17-59); Bilirubin,Direct 0.2 mg/dl (0.0-0.4); Bilirubin,Indirect 0.4 mg/dL (0.0-0.9); Bilirubin,Total 0.6 mg/dl (0.2-1.3); Bilirubin,Unconjugated 0.4 mg/dL (0.0-1.1); Chol/HDL Ratio 4.3 (1-3.5); Cholesterol 219 mg/dl (140-200); HDL Cholesterol 51 mg/dl (40-60); Total Protein,Serum 7.8 g/dl (6.3-8.2); Triglycerides 366 mg/dl (30-150); VLDL Cholesterol 73 mg/dL (0-40)
[2022-03-10 16:33] LABS: Anion Gap 19.6 mEq/L (5-15); Blood Urea Nitrogen 32 mg/dl (9-20); Carbon Dioxide 30 mmol/L (22.0-30.0); Chloride 88 mmol/L (98-107); Estimated Glomerular Filt Rate 69 ml/min (>60); GFR (African American) 84 ML/MIN (>60); Potassium 5.6 mmoL/L (3.5-5.1); Sodium 132 mmol/L (136-145)
[2022-03-10 16:45] LABS: Glucose 502 mg/dl (74-100)
[2022-03-10 16:59] LABS: Direct LDL Cholesterol 112.04 mg/dL (100-129)
== END ==
PROVIDERS: Nurse Practitioner; Physician Assistant; PCP Nurse Practitioner Family; Visit Provider Nurse Practitioner Family
DX: E11.59 Type 2 diabetes mellitus with other circulatory complications (principal); E78.2 Mixed hyperlipidemia; I10 Essential (primary) hypertension; I63.9 Cerebral infarction, unspecified; I73.9 Peripheral vascular disease, unspecified; K21.9 Gastro-esophageal reflux disease without esophagitis; R06.02 Shortness of breath; R94.31 Abnormal electrocardiogram [ECG] [EKG]; R94.39 Abnormal result of other cardiovascular function study; Z79.4 Long term (current) use of insulin; M25.552 Pain in left hip
CPT/HCPCS: 36415; 73502; 80048; 80061; 80076; 85025

== ENCOUNTER → 2022-03-12 11:01 | Outpatient (CLI) | payer MEDICARE, OTHER, SELFPAY ==
[2022-03-12 11:56] LABS: Anion Gap 15.8 mEq/L (5-15); Blood Urea Nitrogen 28 mg/dl (9-20); Calcium 10.2 mg/dl (8.4-10.2); Carbon Dioxide 30 mmol/L (22.0-30.0); Chloride 97 mmol/L (98-107); Estimated Glomerular Filt Rate 69 ml/min (>60); GFR (African American) 84 ML/MIN (>60); Glucose 273 mg/dl (74-100); Potassium 4.8 mmoL/L (3.5-5.1); Sodium 138 mmol/L (136-145)
== END ==
PROVIDERS: PCP Internal Medicine Adolescent Medicine; Visit Provider Physician Assistant
DX: E87.5 Hyperkalemia (principal)
CPT/HCPCS: 36415; 80048

== ENCOUNTER 2022-03-14 08:45 | Day surgery (SDC) | payer MEDICARE, OTHER, SELFPAY ==
[2022-03-14] VITALS (14 sets, daily range): BP systolic 85–149; BP diastolic 40–89; PULSE 54–71; RESP 16–20; O2SAT 96–100; BMI 30.4
--- NOTE | 2022-03-14 09:07 | US_ITS ---
FINAL REPORT CLINICAL HISTORY: CLAUDICATION,REST PAIN,HTN,CAD,HLD,DM,DECREASED SENESATION FINDINGS: ANKLE-BRACHIAL PRESSURE INDICES Pressure indices are as follows: RIGHT LOWER EXTREMITY: Ankle-brachial pressure index: 1.2 Comments: Normal LEFT LOWER EXTREMITY: Ankle-brachial pressure index: 1.2 Comments: Normal CONCLUSION: No evidence of significant obstructive peripheral vascular disease of the lower extremities Reviewed, Interpreted and Dictated by Kwadwo Sinclair MD Transcribed by Sosa Rios Authenticated and [facility]
--- NOTE | 2022-03-14 09:48 | IR_ITS ---
APPROVED REPORT Patient Location: Outpatient Interpreter And Translator: GUDELIA Patricio RT (R) PROCEDURES Left heart catheterization Left ventriculogram Selective coronary angiogram Drug-eluting stent deployment to the ostial proximal and mid LAD in a contiguous manner INDICATION Coronary artery disease, Abnormal Myoview, Accelerated angina pectoris, Informed consent was obtained prior to the procedure. COMPLICATIONS None Estimated Blood Loss: Less than 10 mls TECHNIQUE One percent lidocaine used to anesthetize the right anterior aspect of the wrist. The right radial artery was accessed via the Seldinger technique. A 6 Albanian sheath was placed in the right radial artery. 2.5 mg of verapamil, 800 mcg of nitroglycerin, 1mg Lidocaine and 5000 U Heparin were given through the arterial sheath. The papa catheter was also used to perform selective coronary angiogram. At the end the diagnostic angiogram therapeutic heparin was administered giving a therapeutic ACT. There was a kink in the guide catheter which did not allow passage of the wire without kinking the wire. In EBU 3.5 guide catheter was placed in the left main artery followed by a Choice PT extra-support wire. A 4 mm x 18 mm resolute Ayan stent was deployed at 20 felecia in the ostial proximal segment reducing the severe stenosis. Following this a 3.5 x 26 mm resolute Ayan stent was then placed in the proximal segment distal to the first stent yet still overlapping it and deployed at 20 and then 24 felecia. An additional 3.5 x 18 mm resolute [place] stent was then deployed distal to the second stent yet still overlapping it and deployed at 20 felecia. The balloon was brought back and deployed at 24 then 28 felecia. A 4 mm x 20 mm noncompliant balloon was then deployed at 20 and then 24 felecia in the mid and proximal segment and then redeployed at 20 felecia further down the stent. At the end of the procedure excellent angiographic results was obtained with VALE-3 flow being present before and after the procedure at the end the procedure the apparatus was removed the sheath was removed and hemostasis was achieved using TR banding patient was transferred to the postop putting in stable condition ANGIOGRAPHIC RESULTS The left main artery Normal The left anterior descending artery Has proximal diffuse concentric 70% stenosis which extends into the mid segment all representing in-stent restenosis. Distal to the stent there is mild luminal irregularities The circumflex artery Gives rise to a large widely patent ramus intermedius with mild luminal irregularities in the circumflex artery which is a dominant vessel The right coronary artery Nondominant and normal The BERMAN ventriculogram reveals Not performed The left ventricular end-diastolic pressure Not measured IMPRESSION Severe proximal LAD in-stent restenosis as described above with successful stenting with larger stents taking them to higher inflation and getting better angiographic results reducing the stenosis to less than 10% PLAN 1. Dual antiplatelet therapy 2. Risk factor modification 3. Tighter control of diabetes 4. LDL less than 55 to be achieved with high intensity statin 5. Cardiac rehabilitation 6. Avoidance of tobacco products Electronically signed by : Carmelo Cherry MD 03/14/2022 11:02:29
[2022-03-14 09:55] LABS: POC Glucose,Bedside 274 (70-110)
[2022-03-14 11:32] LABS: CATHL Activated Clotting Time > 400 SEC (74-125)
--- NOTE | 2022-03-14 14:53 | HMH.PHACL ---
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 ALL QUESTIONS/CONCERNS ANSWERED. -JERMAN LOREDO, ADAND
== END 2022-03-14 14:46 | disposition home or self-care (01) ==
LOC: CATHLAB 08:47
PROVIDERS: PCP Nurse Practitioner Family; Visit Provider Internal Medicine
DX: E11.59 Type 2 diabetes mellitus with other circulatory complications (principal); E78.5 Hyperlipidemia, unspecified; I10 Essential (primary) hypertension; I25.118 Atherosclerotic heart disease of native coronary artery with other forms of angina pectoris; I70.213 Atherosclerosis of native arteries of extremities with intermittent claudication, bilateral legs; K21.9 Gastro-esophageal reflux disease without esophagitis; R06.02 Shortness of breath; R94.31 Abnormal electrocardiogram [ECG] [EKG]; R94.39 Abnormal result of other cardiovascular function study; Z79.4 Long term (current) use of insulin; T82.855A Stenosis of coronary artery stent, initial encounter; Z79.899 Other long term (current) drug therapy
CPT/HCPCS: 82962; 85347; 92928; 93458; 93923; 99152; 99153; C1725; C1769; C1876; C9600; J1644; Q9967

== ENCOUNTER → 2022-03-21 08:53 | Outpatient (CLI) | payer MEDICARE, OTHER, SELFPAY ==
[2022-03-21 09:50] LABS: Basophils # 0.1 K/mm3 (0-0.2); Basophils % 1.2 % (0.1-2.0); Eosinophils # 0.3 K/mm3 (0.0-0.4); Eosinophils % 3.9 % (0.1-12.0); Hematocrit 42.7 % (42.0-52.0); Hemoglobin 13.7 g/dL (14.1-18.0); Lymphocytes # 1.8 K/mm3 (0.7-4.5); Lymphocytes % 27.3 % (10-50); Mean Corpuscular Hemoglobin 27.8 pg (27.0-31.2); Mean Corpuscular Volume 86.9 fl (80-94); Mean Platelet Volume 8.3 fl (7.4-10.4); Monocytes # 0.4 K/mm3 (0.1-1.0); Monocytes % 5.6 % (1.7-9.3); Neutrophils # 4.2 K/mm3 (1.8-7.8); Neutrophils % 61.9 % (37.0-80.0); Platelet Count 375 K/mm3 (142-424); Red Blood Count 4.92 M/mm3 (4.60-6.20); Red Cell Distribution Width 13.6 % (11.5-17.5); White Blood Count 6.7 K/mm3 (4.8-10.8)
[2022-03-21 10:51] LABS: Anion Gap 20.9 mEq/L (5-15); Blood Urea Nitrogen 31 mg/dl (9-20); Calcium 10.3 mg/dl (8.4-10.2); Carbon Dioxide 25 mmol/L (22.0-30.0); Chloride 94 mmol/L (98-107); Estimated Glomerular Filt Rate 69 ml/min (>60); GFR (African American) 84 ML/MIN (>60); Potassium 4.9 mmoL/L (3.5-5.1); Sodium 135 mmol/L (136-145)
[2022-03-21 11:01] LABS: Glucose 435 mg/dl (74-100)
== END ==
PROVIDERS: PCP Internal Medicine Adolescent Medicine; Visit Provider Internal Medicine
DX: R06.02 Shortness of breath (principal); Z95.5 Presence of coronary angioplasty implant and graft
CPT/HCPCS: 36415; 80048; 85025

== ENCOUNTER → 2022-03-29 11:28 | Outpatient (POV) | payer MEDICARE, OTHER, SELFPAY ==
[2022-03-29 11:30] VITALS: BP 134/76; PULSE 59; RESP 20; TEMP 36.6; O2SAT 100; BMI 31.9
--- NOTE | 2022-03-29 12:22 | EXP.PAIN.SOA ---
[facility] Pain Management SOAP Note Subjective:: Patient is a pleasant 57-year-old male who presents today for follow-up. We are currently treating the patient for myofascial pain of upper trapezius, thoracic paraspinous, right rhomboid muscles, chronic neck pain, degenerative disc disease of lumbar spine with lumbar radiculopathy symptoms, postlaminectomy syndrome. Today the patient rates his pain a 8 out of 10. Patient denies any new trauma or injury. Patient states he has been experiencing over the last month increasing pain around his left groin that goes down his left leg. Patient describes this as a throbbing sensation that is worse at night and with increased activity. Patient states he did have a x-ray of his left hip in March however he states there were no abnormal findings. Patient has had injections in the past that did provide significant improvement. Patient is currently managed with gabapentin 800 mg 3 times a day from Dr. Reyes's office. Patient denies any side effects from this medication. He states this medication does help with some of his neuropathy symptoms. Patient is also prescribed compounding cream that he states he uses for his feet and does provide significant relief. Patient does have a [employer] spinal cord stimulator in place and states he was just reprogrammed by a senior customer service representative about 1 week ago. His Yunior is [phone]. It has been reviewed and appropriate. General: No recent weight changes, no fever, no sleep disturbances Respiratory: No cough, no shortness of air, no recurring pulmonary infections Cardiovascular/peripheral vascular: No chest pain, no palpitations, no edema, no shortness of breath Gastrointestinal: No new onset incontinence, normal bowel movements reported Genitourinary: No new onset incontinence Musculoskeletal: Left groin pain, left hip pain, left leg pain Psychiatric: Normal mood/affect Neurological: Denies weakness in extremities, denies balance issues Objective:: General: Alert and oriented x3, no acute distress, pleasant and cooperative Lungs: Respiration even unlabored, symmetrical chest expansion Eyes: PERRL Musculoskeletal: Flexion and extension of lumbar spine somewhat guarded secondary to pain, antalgic gait noted. Point tenderness along left greater trochanteric bursa Neurological: Speech clear, no gross sensory deficit Assessment:: Degenerative disc disease of lumbar spine with lumbar radiculopathy symptoms, postlaminectomy syndrome, myofascial pain of upper trapezius, thoracic paraspinous and right rhomboid muscles, chronic neck pain Plan:: Patient is experiencing significant pain and he is left hip that radiates into his groin and down his left leg. Patient did have limited range of motion of his lumbar spine and extreme point tenderness along his left greater trochanteric bursa during today's exam. I have recommended that the patient may benefit from diagnostic left bursa and left intra-articular hip injections. Risk and benefits were discussed with the patient. He would like to proceed forward with this plan of care. I have also discussed with the patient that if he does not get significant relief following these injections that we will look into doing a CT or MRI of his left hip. We will schedule the patient for a left greater trochanteric bursa and left intra-articular hip injection. Patient has been instructed to contact the clinic with any questions or concerns before the next appointment date. Dr. Galarza has read this note and agrees with this plan of care. This note was dictated using voice recognition software and may contain errors or omissions. [facility] 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 Diastolic dysfunction Unstable angina Social History Smoking Status: Never smoker second hand exposure: No alcohol intake: never substance use type: denies use current occupational status: e
== END ==
PROVIDERS: PCP Internal Medicine Adolescent Medicine; Visit Provider Nurse Anesthetist, Certified Registered
DX: M51.16 Intervertebral disc disorders with radiculopathy, lumbar region (principal); M96.1 Postlaminectomy syndrome, not elsewhere classified; M79.18 Myalgia, other site; M54.2 Cervicalgia; G89.29 Other chronic pain
CPT/HCPCS: 99212; G0463

== ENCOUNTER 2022-04-05 10:15 | Day surgery (SDC) | payer MEDICARE, OTHER, SELFPAY ==
[2022-04-05 10:31] VITALS: BP 166/83; PULSE 63; RESP 18; TEMP 36.2; O2SAT 100; BMI 31.3
[2022-04-05 10:50] VITALS: BP 166/68; PULSE 60; RESP 18; O2SAT 100
--- NOTE | 2022-04-05 10:50 | P.PCN_ITS ---
Procedure Date: 04/05/22 Time: 10:40 Anesthesiologist:: Bacilio Tanner CRNA Complications:: None Pre-procedure Diagnosis:: Osteoarthritis left hip. Chronic left groin pain. Left buttock pain. Post-procedure Diagnosis:: Same. Indications for Procedure:: Very pleasant 57-year-old male that comes our clinic today for left intra- articular hip injection. Patient also scheduled for left trochanteric bursa injection. However, patient denies having point tenderness over the left lateral hip. He describes his pain as constant, dull, aching in the left groin as well as left buttock at times. He rates his pain 8/10. Procedure Details:: Details of the procedure were explained to the patient. The patient was taken to procedure room placed in the supine position. The area over the left hip was cleaned using chlorhexidine as a cleansing solution. Using fluoroscopy guidance a 3 and half inch 22-gauge spinal needle was used to access the left hip joint without difficulty. After negative aspiration 3 cc of 1% lidocaine +3 cc of 0.25% Marcaine and 40 mg of Depo-Medrol was injected. Needle was withdrawn. Band-Aid applied. Patient tolerated procedure without difficulty. There are no complications. Plan and Disposition:: Patient was discharged without incident.
== END 2022-04-05 10:50 | disposition home or self-care (01) ==
PROVIDERS: PCP Internal Medicine Adolescent Medicine; Visit Provider Nurse Anesthetist, Certified Registered
DX: M16.12 Unilateral primary osteoarthritis, left hip (principal); M70.62 Trochanteric bursitis, left hip; R10.32 Left lower quadrant pain; G89.29 Other chronic pain
CPT/HCPCS: 20610; 77002; J1030

== ENCOUNTER → 2022-04-26 09:49 | Outpatient (POV) | payer MEDICARE, OTHER, SELFPAY ==
[2022-04-26 10:33] VITALS: BP 138/73; PULSE 69; RESP 18; O2SAT 98; BMI 31.3
--- NOTE | 2022-04-26 10:56 | EXP.PAIN.SOA ---
[facility] Pain Management SOAP Note Subjective:: Patient is a pleasant 57-year-old male who presents today for left hip intra-articular injection on 04/05/2022. We are currently treating the patient for myofascial pain of upper trapezius, thoracic paraspinous, right rhomboid muscles, chronic neck pain, degenerative disc disease of lumbar spine with lumbar radiculopathy symptoms, postlaminectomy syndrome, osteoarthritis left hip. Today the patient states that he had no improvement following this injection and actually felt worse for 3 days. Today he rates his pain a 6 out of 10. Patient denies any new trauma or injury. Patient denies any change location or type of pain he experiences. Patient does describe this as a aching, throbbing sensation that is worse with increased activity. Patient states he continues to experience significant pain in his left groin that radiates down into his left upper leg. Patient is currently managed with gabapentin 800 mg 3 times a day from his primary care doctor. Patient denies any side effects from this medication. He has also prescribed compounding cream however he states he did not notice significant improvement along his left groin when he tried it. Patient also states he typically has bilateral knee pain with his left knee being more bothersome. His Yunior is [id number]. Its been reviewed and appropriate. Review of Systems: General: No recent weight changes, no fever, no sleep disturbances Respiratory: No cough, no shortness of air, no recurring pulmonary infections Cardiovascular/peripheral vascular: No chest pain, no palpitations, no edema, no shortness of breath Gastrointestinal: No new onset incontinence, normal bowel movements reported Genitourinary: No new onset incontinence Musculoskeletal: Low back pain, left groin pain Psychiatric: [Normal mood/affect] Neurological: [Denies weakness in extremities], [denies balance issues] Objective:: Physical Exam: General: Alert and oriented x3, no acute distress, pleasant and cooperative Lungs: Respirations even and unlabored, symmetrical chest expansion Eyes: PERRL Musculoskeletal: Flexion and extension of lumbar [spine] somewhat guarded secondary to pain, [antalgic gait noted] extreme point tenderness along left SI and positive left Mary's, Jaxson's, Gaenslen's, compression and distraction exam Neurological: Speech clear, no gross sensory deficit Assessment:: Degenerative disc disease of lumbar spine with lumbar radiculopathy symptoms, postlaminectomy syndrome, osteoarthritis left hip, myofascial pain of upper trapezius, thoracic paraspinous, right rhomboid muscles, chronic neck pain Plan:: Patient continues to experience significant pain in his low back that radiates into his left groin and leg. Patient had limited range of motion of her lumbar spine along with extreme point tenderness of his left SI and positive left Mary's, Jaxson's, Gaenslen's, compression and distraction exam. I have discussed with the patient that he may benefit from a diagnostic SI injection. Risk and benefits were discussed with the patient. He would like to proceed forward with this plan of care. We will schedule him for a left SI injection. Patient has been instructed to contact the clinic with any concerns before the next appointment. Dr. Galarza has reviewed this note and agrees with this plan of care. This note was dictated using voice recognition software and make contain errors or omissions. [facility] Disclaimer: The information contained in this section may have been updated after the patient was seen, as this information can be updated by other users. 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 Diastolic dysfunction Unstable angina Family History (Updated 04/05/22 @ 10:32 by Lois Todd RN) Other No significant family history Social History Smoking Status: Never smoker second hand expo
== END ==
PROVIDERS: PCP Internal Medicine Adolescent Medicine; Visit Provider Nurse Practitioner Family
DX: M51.16 Intervertebral disc disorders with radiculopathy, lumbar region (principal); M96.1 Postlaminectomy syndrome, not elsewhere classified; M16.12 Unilateral primary osteoarthritis, left hip; M54.2 Cervicalgia; M79.18 Myalgia, other site; G89.29 Other chronic pain
CPT/HCPCS: 99212; G0463

== ENCOUNTER 2022-04-29 08:09 | Day surgery (SDC) | payer MEDICARE, OTHER, SELFPAY ==
[2022-04-29 08:23] VITALS: BP 145/79; PULSE 66; RESP 18; TEMP 36.3; O2SAT 100; BMI 31.3
--- NOTE | 2022-04-29 08:38 | EXP.PAIN.PRO ---
Procedure Date: 04/29/22 Time: 08:25 Anesthesiologist:: Bacilio Tanner CRNA Complications:: None Pre-procedure Diagnosis:: Left sacroiliitis Post-procedure Diagnosis:: Same Indications for Procedure:: Patient is a pleasant 57-year-old male that comes our clinic today for left sacroiliac joint injection. He has extreme point tenderness upon examination over the left sacroiliac joint. He rates his pain 7/10. Patient is status post left intra-articular hip injection which rendered no relief in terms of his left posterior hip pain. Procedure Details:: Procedure: Left sacroiliac injection under fluoroscopy Informed consent was obtained and the risk and benefits of the procedure were explained to the patient.~ The patient was taken to the procedure room and noninvasive monitors were placed including noninvasive blood pressure cuff and pulse oximeter.~ The patient was placed prone on the procedure table.~ The~ left hip was cleansed using Betadine as a cleansing solution.~ C-arm fluorosocpy was used to view the left SI joint.~ The skin and subcutaneous tissues were anesthetized using Lidocaine 1.5% and a 25-gauge needle.~ After this, a 22-gauge spinal needle was inserted under fluoroscopic guidance into the inferior aspect of the left SI joint.~ Omnipaque dye was injected and a good spread was seen throughout the joint.~ After this, approximately 5 mL of bupivacaine 0.25% and Depo-Medrol 40 mg was incrementally injected into the sacroiliac joint.~ The patient tolerated the procedure well with no complications.~ The patient was observed in the Pain Clinic for a period of 30-45 minutes, then discharged home neurologically intact.~ Plan and Disposition:: Patient will return to the clinic for follow-up visit.
[2022-04-29 08:43] VITALS: BP 140/77; PULSE 66; RESP 18; O2SAT 100
[2022-04-29 09:27] LABS: POC Glucose,Bedside 255 (70-110)
== END 2022-04-29 08:43 | disposition home or self-care (01) ==
PROVIDERS: PCP Internal Medicine Adolescent Medicine; Visit Provider Nurse Anesthetist, Certified Registered
DX: M46.1 Sacroiliitis, not elsewhere classified (principal)
CPT/HCPCS: 27096; 82962; G0260; J1040

== ENCOUNTER → 2022-05-16 09:58 | Outpatient (POV) | payer MEDICARE, SELFPAY ==
[2022-05-16 10:24] VITALS: BP 136/77; PULSE 68; RESP 18; O2SAT 97; BMI 31.3
--- NOTE | 2022-05-16 10:40 | EXP.PAIN.SOA ---
[facility] Pain Management SOAP Note Subjective:: Patient is a pleasant 57-year-old male who presents today for a follow-up from a left sacroiliac joint injection on 04/29/2022. We are currently treating the patient for myofascial pain of upper trapezius, thoracic paraspinalnosis, right rhomboid rhomboid muscles, chronic neck pain, degenerative disc disease of lumbar spine with lumbar radiculopathy symptoms, post-laminectomy syndrome, osteoarthritis of left hip, sacroiliitis, left groin pain, left leg pain. Today the patient rates his pain a 3 out of 10. States that he has had significant improvement since having injection and he had about 70% relief. Patient states symptoms are starting to return but they are not as significant as before injection. Patient denies any new trauma or injury. Patient denies any change location of pain he experiences. Patient is currently managed with gabapentin 800 mg 3 times a day from his primary care doctor. Patient denies any side effects from this medication. He also has prescribed compounding cream however states he did not notice any significant improvement along his groin area when he tried it. His Yunior number is [id number] it was reviewed and appropriate. Patient also has a spinal stimulator states it still effective. Patient inquired about possible chiropractor referral. Review of Systems: General: No recent weight changes, no fever, no sleep disturbances Respiratory: No cough, no shortness of air, no recurring pulmonary infections Cardiovascular/peripheral vascular: No chest pain, no palpitations, no edema, no shortness of breath Gastrointestinal: No new onset incontinence, normal bowel movements reported Genitourinary: No new onset incontinence Musculoskeletal: Low back pain, left groin pain, left leg pain Psychiatric: [Normal mood/affect] Neurological: [Denies weakness in extremities], [denies balance issues] Objective:: Physical Exam: General: Alert and oriented x3, no acute distress, pleasant and cooperative Lungs: Respirations even and unlabored, symmetrical chest expansion Eyes: PERRL Musculoskeletal: Flexion and extension of lumbar [spine] somewhat guarded secondary to pain, [antalgic gait noted] Neurological: Speech clear, no gross sensory deficit ORT score updated with low risk Assessment:: Degenerative disc disease of lumbar spine with lumbar radiculopathy symptoms, postlaminectomy syndrome, osteoarthritis left hip, myofascial pain of upper trapezius, thoracic paraspinous, right rhomboid muscles, chronic chronic neck pain, sacroiliitis, left leg pain, left groin pain. Plan:: Patient continues to experience pain in his low back with radiating symptoms. I have counseled the patient that I do not think it is in his best interest for chiropractic manipulation due to his history of having a spinal stimulator as well as he has had a fusion in his lumbar spine. I did recommend physical therapy for patient and to step discussed benefits he could receive from getting physical therapy at this time. Patient is agreeable with plan. Advised patient that if his pain worsens or returns to call office before his next appointment we will follow-up and see in 1 month for reevaluation of symptoms and follow-up. Advised to continue medication prescribed by his family practice provider. Patient has been instructed to contact the clinic with any concerns before the next appointment. Dr. Galarza has reviewed this note and agrees with this plan of care. This note was dictated using voice recognition software and make contain errors or omissions. [facility] Disclaimer: The information contained in this section may have been updated after the patient was seen, as this information can be updated by other users. 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 Diastolic dysfunction Unstable angina Family History Other No significant family histor
== END ==
PROVIDERS: PCP Internal Medicine Adolescent Medicine; Visit Provider Nurse Practitioner Family
DX: M51.16 Intervertebral disc disorders with radiculopathy, lumbar region (principal); M96.1 Postlaminectomy syndrome, not elsewhere classified; M16.12 Unilateral primary osteoarthritis, left hip; M46.1 Sacroiliitis, not elsewhere classified; M79.18 Myalgia, other site; M54.50 Low back pain, unspecified; G89.29 Other chronic pain; M79.605 Pain in left leg; R10.32 Left lower quadrant pain
CPT/HCPCS: 99212; G0463

== ENCOUNTER → 2022-06-20 09:43 | Outpatient (POV) | payer MEDICARE, OTHER, SELFPAY ==
[2022-06-20 10:02] VITALS: BP 169/72; PULSE 67; RESP 18; O2SAT 97; BMI 32.2
--- NOTE | 2022-06-20 10:18 | EXP.PAIN.SOA ---
[facility] Pain Management SOAP Note Subjective:: Patient is a pleasant 57-year-old male who presents today for follow-up. We are currently treating the patient for myofascial pain of the upper trapezius, thoracic paraspinous, right rhomboid muscles, chronic neck pain, degenerative disc disease of lumbar spine with lumbar radiculopathy symptoms, postlaminectomy syndrome, osteoarthritis left hip, sacroiliitis, left groin pain, right leg pain. Today he rates his pain a 5 out of 10. Patient denies any new trauma or injury. Patient states he continues to experience pain in his low back more prominent along the left side that radiates into his left hip and groin. Patient does describe this as a aching sensation that is worse with increased activity. Patient states it feels like he pulled a muscle with certain movements. Patient does state it affects his ability to perform activities of daily living such as cooking and cleaning. Patient cannot tolerate prolonged sitting, standing, walking due to the pain. At our last visit we did order physical therapy however the patient states that he was concerned this would aggravate his pain symptoms and he has not gone. Patient has had injections in the past that provided significant improvement. His last SI injection was 04/29/2022 and gave 70% relief. Patient does state that he has limited range of motion on the left side. He states he frequently has trouble even putting a sock on to this extremity. He is currently managed with gabapentin 800 mg 3 times a day from his primary care doctor. Patient denies any side effects from this medication. He is also prescribed compounding cream that he does states helps additionally. Patient does have a spinal cord stimulator that helps provide additional relief. Patient is a diabetic and states that occasionally his sugar has increased due to the injections. His Yunior is [id number]. Its been reviewed and appropriate. Review of Systems: General: No recent weight changes, no fever, no sleep disturbances Respiratory: No cough, no shortness of air, no recurring pulmonary infections Cardiovascular/peripheral vascular: No chest pain, no palpitations, no edema, no shortness of breath Gastrointestinal: No new onset incontinence, normal bowel movements reported Genitourinary: No new onset incontinence Musculoskeletal: Right hip pain, left hip pain Psychiatric: [Normal mood/affect] Neurological: [Denies weakness in extremities], [denies balance issues] Objective:: Physical Exam: General: Alert and oriented x3, no acute distress, pleasant and cooperative Lungs: Respirations even and unlabored, symmetrical chest expansion Eyes: PERRL Musculoskeletal: Flexion and extension of lumbar [spine] somewhat guarded secondary to pain, [antalgic gait noted] point tenderness along left SI and extreme point tenderness at left greater trochanteric bursa with positive left Mary's, Jaxson's, Gaenslen's, compression and distraction exam Neurological: Speech clear, no gross sensory deficit Assessment:: Myofascial pain of upper trapezius, thoracic paraspinous, right rhomboid muscles, chronic neck pain, degenerative disc disease of lumbar spine with lumbar radiculopathy symptoms, postlaminectomy syndrome, osteoarthritis left hip, sacroiliitis, left groin pain, left leg pain Plan:: Patient is experiencing significant pain along his low back at the left side with radiating symptoms into his left hip and left groin. Patient did have limited range of motion of his lumbar spine along with point tenderness at his left SI and left bursa and a positive left Mary's, Jaxson's, Gaenslen's, compression and distraction exam. I have discussed with the patient that he may benefit from repeat left SI and bursa injections. Risk and benefits were discussed with the patient and he would like to proceed forward with this plan of care. I have counseled the patient that I do think he would benefit from physical therapy in the future how
== END | disposition home or self-care (01) ==
PROVIDERS: Visit Provider Nurse Practitioner Family
DX: M51.16 Intervertebral disc disorders with radiculopathy, lumbar region (principal); M46.1 Sacroiliitis, not elsewhere classified; M96.1 Postlaminectomy syndrome, not elsewhere classified; M79.18 Myalgia, other site; M16.12 Unilateral primary osteoarthritis, left hip; M79.605 Pain in left leg; M54.2 Cervicalgia; G89.29 Other chronic pain
CPT/HCPCS: 99212; G0463

== ENCOUNTER 2022-07-05 08:40 | Day surgery (SDC) | payer MEDICARE, OTHER, SELFPAY ==
[2022-07-05 08:50] VITALS: BP 158/87; PULSE 60; RESP 18; TEMP 36.2; O2SAT 98; BMI 32.8
[2022-07-05 09:26] VITALS: BP 161/77; PULSE 62; RESP 18; O2SAT 97
--- NOTE | 2022-07-05 09:29 | P.PCN_ITS ---
Procedure Date: 07/05/22 Time: 09:30 Anesthesiologist:: Bacilio Tanner CRNA Complications:: None Pre-procedure Diagnosis:: Left sacroiliitis. Left greater trochanteric bursitis. Post-procedure Diagnosis:: Same. Indications for Procedure:: Patient is a very pleasant 57-year-old male who comes our clinic today for left trochanteric bursa injection as well as left sacroiliac joint injection. He has had these in the past with moderate improvement in both areas. His main complaint is low left lumbar and posterior buttock pain. Also he has extreme point tenderness over the left trochanteric bursa area. Procedure Details:: Procedure: Left sacroiliac injection under fluoroscopy Informed consent was obtained and the risk and benefits of the procedure were explained to the patient.~ The patient was taken to the procedure room and noninvasive monitors were placed including noninvasive blood pressure cuff and pulse oximeter.~ The patient was placed prone on the procedure table.~ The~ left hip was cleansed using Betadine as a cleansing solution.~ C-arm fluorosocpy was used to view the left SI joint.~ The skin and subcutaneous tissues were anesthetized using Lidocaine 1.5% and a 25-gauge needle.~ After this, a 22-gauge spinal needle was inserted under fluoroscopic guidance into the inferior aspect of the left SI joint.~ Omnipaque dye was injected and a good spread was seen throughout the joint.~ After this, approximately 5 mL of bupivacaine 0.25% and Depo-Medrol 40 mg was incrementally injected into the sacroiliac joint.~ The patient tolerated the procedure well with no complications.~ The patient was observed in the Pain Clinic for a period of 30-45 minutes, then discharged home neurologically intact.~ Procedure:Left trochanteric bursa injection under fluoroscopy We then moved to the left trochanteric bursa.~ C-arm fluoroscopy was used to view the left greater trochanter.~ The skin and subcutaneous tissues overlying the left greater trochanter were anesthetized using lidocaine, 1.5% and a 25- gauge needle.~ After this, a 22-gauge spinal needle was inserted and advanced until it contacted the left greater trochanter.~ Dye was injected and good spread was seen throughout the left trochanteric bursa. After this, approximately 5 mL of bupivacaine, 0.25% and Depo-Medrol, 40 mg was incrementally injected into the left trochanteric bursa.~ The patient tolerated the procedure well with no complications. Plan and Disposition:: Patient was discharged without incident.
[2022-07-05 09:42] VITALS: BP 154/77; PULSE 58; RESP 18; O2SAT 98
== END 2022-07-05 09:42 | disposition home or self-care (01) ==
PROVIDERS: PCP Internal Medicine Adolescent Medicine; Visit Provider Nurse Anesthetist, Certified Registered
DX: M46.1 Sacroiliitis, not elsewhere classified (principal); M70.62 Trochanteric bursitis, left hip
CPT/HCPCS: 20610; 27096; 77002; G0260; J1040

== ENCOUNTER → 2022-07-21 15:17 | Outpatient (POV) | payer MEDICARE, OTHER, SELFPAY ==
--- NOTE | 2022-07-21 15:22 | EXP.PAIN.SOA ---
[facility] Pain Management SOAP Note Subjective:: Patient is a pleasant 57-year-old male who presents today for follow-up of left SI and left bursa injection on 07/05/2022. We are currently treating the patient for degenerative disc disease of lumbar spine with lumbar radiculopathy symptoms, postlaminectomy syndrome, osteoarthritis left hip, sacroiliitis, left groin pain, right leg pain, myofascial pain of the upper trapezius, thoracic paraspinous, right rhomboid muscles, and chronic neck pain. Today he rates his pain a 3 out of 10. Patient states he has had approximately 80% relief following this injection however it only lasted 3 days. Patient states his pain continues to be in his low back and more prominent into his left leg. Patient denies any new trauma or injury. Patient denies any change in location or type of pain he experiences. Patient has had 3 back surgeries in the past. He states he has recently been to see Dr. Lorenzo here at [facility] who did order a updated lumbar MRI. He states at this time he has not done this imaging. He does describe his pain as an aching sensation that is worse with increased activity. He states this is a constant pain that affects his ability to perform activities of daily living such as cooking and cleaning. He is currently managed with gabapentin 800 mg 3 times a day from his primary care doctor and methocarbamol 750 mg at bedtime from our office. Patient states that he did notice some improvement following this muscle relaxer however he did have increased drowsiness the day after. Patient does also use compounding cream and has a spinal cord stimulator in place. His Yunior is [id number]. Its been reviewed and appropriate. Review of Systems: General: No recent weight changes, no fever, no sleep disturbances Respiratory: No cough, no shortness of air, no recurring pulmonary infections Cardiovascular/peripheral vascular: No chest pain, no palpitations, no edema, no shortness of breath Gastrointestinal: No new onset incontinence, normal bowel movements reported Genitourinary: No new onset incontinence Musculoskeletal: Low back pain Psychiatric: [Normal mood/affect] Neurological: [Denies weakness in extremities], [denies balance issues] Objective:: Physical Exam: General: Alert and oriented x3, no acute distress, pleasant and cooperative Lungs: Respirations even and unlabored, symmetrical chest expansion Eyes: PERRL Musculoskeletal: Flexion and extension of lumbar [spine] somewhat guarded secondary to pain, [antalgic gait noted] Neurological: Speech clear, no gross sensory deficit Assessment:: degenerative disc disease of lumbar spine with lumbar radiculopathy symptoms, postlaminectomy syndrome, osteoarthritis left hip, sacroiliitis, left groin pain, right leg pain, myofascial pain of the upper trapezius, thoracic paraspinous, right rhomboid muscles, and chronic neck pain Plan:: Patient continues to experience significant pain in his low back and left leg. Patient did have limited range of motion of his lumbar spine during today's visit. I have discussed with the patient that he may benefit from a left SI stabilization or pain pump trial in the future. Risk and benefits of these procedures were explained and educational handouts given during today's visit. I have counseled the patient to take half of his muscle relaxer at night and see if he does better with this dosage with no residual drowsiness the next day. Patient will return to clinic in 1 month for reevaluation of symptoms and plan of care. Patient has been instructed to contact the clinic with any concerns before the next appointment. Dr. Galarza has reviewed this note and agrees with this plan of care. This note was dictated using voice recognition software and make contain errors or omissions. [facility] Disclaimer: The information contained in this section may have been updated after the patient was seen, as this information can be updated by other users.
[2022-07-21 15:26] VITALS: BP 141/67; PULSE 64; RESP 18; O2SAT 97; BMI 31.3
== END ==
PROVIDERS: PCP Internal Medicine Adolescent Medicine; Visit Provider Nurse Practitioner Family
DX: M51.16 Intervertebral disc disorders with radiculopathy, lumbar region (principal); M96.1 Postlaminectomy syndrome, not elsewhere classified; M16.12 Unilateral primary osteoarthritis, left hip; M46.1 Sacroiliitis, not elsewhere classified; R10.32 Left lower quadrant pain; M79.604 Pain in right leg; M79.18 Myalgia, other site; G89.29 Other chronic pain
CPT/HCPCS: 99212; G0463

== ENCOUNTER → 2022-08-18 11:34 | Outpatient (POV) | payer MEDICARE, OTHER, SELFPAY ==
--- NOTE | 2022-08-18 11:49 | EXP.PAIN.SOA ---
[facility] Pain Management SOAP Note Subjective:: Patient is a pleasant 57-year-old male who presents today for follow-up. We are currently treating the patient for degenerative disc disease of lumbar spine with lumbar radiculopathy symptoms, postlaminectomy syndrome, osteoarthritis left hip, sacroiliitis, groin pain, right leg pain, myofascial pain of upper trapezius, thoracic paraspinous, right rhomboid muscles and chronic neck pain. Today he rates his pain an 8 out of 10. Patient states that he did slip the other day while working and did have overall increased pain in his left groin. He does describe this as an aching, throbbing sensation that is worse with increased activity. From our last visit he did start taking his methocarbamol 750 mg at night and has done much better with decreased drowsiness. He states that he did get a MRI denial that was ordered by Dr. Lorenzo's office for lack of having physical therapy. He states he is scheduled to go over to their office immediately after our visit. He is currently managed with gabapentin 800 mg 3 times [address] day [address] Dr. Reyes's office. His Yunior is [id number]. Its been reviewed and appropriate. Review of Systems: General: No recent weight changes, no fever, no sleep disturbances Respiratory: No cough, no shortness of air, no recurring pulmonary infections Cardiovascular/peripheral vascular: No chest pain, no palpitations, no edema, no shortness of breath Gastrointestinal: No new onset incontinence, normal bowel movements reported Genitourinary: No new onset incontinence Musculoskeletal: Left groin pain Psychiatric: [Normal mood/affect] Neurological: [Denies weakness in extremities], [denies balance issues] Objective:: Physical Exam: General: Alert and oriented x3, no acute distress, pleasant and cooperative Lungs: Respirations even and unlabored, symmetrical chest expansion Eyes: PERRL Musculoskeletal: Flexion and extension of lumbar [spine] somewhat guarded secondary to pain, [antalgic gait noted] Neurological: Speech clear, no gross sensory deficit Assessment:: Degenerative disc disease of lumbar spine with lumbar radiculopathy symptoms, postlaminectomy syndrome, osteoarthritis left hip, sacroiliitis, left groin pain, myofascial pain of upper trapezius, thoracic paraspinous and right rhomboid muscles, chronic neck pain Plan:: Patient is experiencing significant pain in his left groin and hip area with limited range of motion. I will refill his methocarbamol 750 mg at bedtime and provide a 1 month supply of this medication. I will also order him physical therapy during today's visit. Patient is requesting this to be done at the [place] office. I will also send a 5 days dose of prednisone 20 mg twice daily and a 5-day dose of tramadol 50 mg twice daily. Patient will return to clinic in 1 month for reevaluation of symptoms, medication refill and follow-up. Patient has been instructed to contact the clinic with any concerns before the next appointment. Dr. Glaarza has reviewed this note and agrees with this plan of care. This note was dictated using voice recognition software and make contain errors or omissions. [facility] Disclaimer: The information contained in this section may have been updated after the patient was seen, as this information can be updated by other users. 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 Coronary artery disease Diastolic dysfunction Gastroesophageal reflux disease HLD (hyperlipidemia) HTN (hypertension) T2DM (type 2 diabetes mellitus) Unstable angina Surgical History History of back surgery Hx of colonoscopy Family History Other Coronary artery disease Heart attack No significant family history Social History Smoking Status: Never smoker second hand exposure: No alcohol intake: never s
[2022-08-18 12:41] VITALS: BP 119/74; PULSE 100; RESP 19; O2SAT 96; BMI 32.8
== END | disposition home or self-care (01) ==
PROVIDERS: PCP Internal Medicine Adolescent Medicine; Visit Provider Nurse Practitioner Family
DX: M51.16 Intervertebral disc disorders with radiculopathy, lumbar region (principal); M96.1 Postlaminectomy syndrome, not elsewhere classified; M16.12 Unilateral primary osteoarthritis, left hip; M46.1 Sacroiliitis, not elsewhere classified; R10.32 Left lower quadrant pain; M79.18 Myalgia, other site; G89.29 Other chronic pain
CPT/HCPCS: 99212; G0463

== ENCOUNTER 2022-09-13 07:00 | Outpatient (RCR) | payer MEDICARE, OTHER, SELFPAY ==
--- NOTE | 2022-08-25 12:58 | HMH.PTOPEV ---
PT Outpatient Evaluation Rehab PT Outpatient Evaluation Start: 08/25/22 11:52 Freq: Status: Active Protocol: Document 08/25/22 11:52 PDESEROUX (Rec: 08/25/22 12:58 PDESEROUX [id number]) E-signed By Bacilio Bourgeois, PT Outpatient Therapy Subjective History Subjective History Pt. is a 57 year old male whom presents to [facility] in [place] for the initial evaluation this date( 08/25/22) w/ c/o chronic and constant LLE groin and hip P!, weakness, burning, and numbness of insidious onset 6 months ago. Pt. reports having a chronic history of LB and LLE radicular P!. Pt. reports having 3 previous surgeries to the lumbar spine including L5 /S1 and L3/L4 discectomies, but also a surgical procedure to install a pain stimulator. Pt. reports having some symptom relief w/ the pain stimulator. Pt. reports having no symptom relief w/ previous steroid injections. Pt. reports symptoms in the LLE hip are constant and worsen w/ lifting leg to don/doff socks , ambulating, and twisting. Pt . reports having previous Physical Therapy for the LBP! where mechanical traction provided pt. w/ a lot of symptom relief, however, reported no relief w/ TrPDN. Recent diagnostic imaging( radiograph) positive for osteoarthritis per pt. report. Pt. reports having permanent numbness inferior to the LLE knee secondary to previous history of LBP!. Pt. denies saddle paresthesia, denies bowel/bladder dysfunction. Current medications include Gabapentin, Tramadol, and a muscle relaxer. PMH includes DM-II, diabetic neuropathy, hx
== END 2022-10-12 16:50 | disposition home or self-care (01) ==
LOC: PT 07:00
PROVIDERS: PCP Internal Medicine Adolescent Medicine; Visit Provider Nurse Practitioner Family
DX: M54.50 Low back pain, unspecified (principal); R10.32 Left lower quadrant pain
CPT/HCPCS: 97010; 97110; 97140; 97163

== ENCOUNTER → 2022-09-15 11:22 | Outpatient (POV) | payer MEDICARE, OTHER, SELFPAY ==
--- NOTE | 2022-09-15 11:56 | EXP.PAIN.SOA ---
[facility] Pain Management SOAP Note Subjective:: Patient is a pleasant 57-year-old male who presents today for medication refill and follow-up. We are currently treating the patient for degenerative disc disease of lumbar spine with lumbar radiculopathy symptoms, osteoarthritis left hip, lumbar postlaminectomy syndrome, sacroiliitis, groin pain, right leg pain, myofascial pain of upper trapezius, thoracic paraspinous, right rhomboid muscles and chronic neck pain. Today he rates his pain a 6 out of 10. Patient denies any new trauma or injury. Patient denies any change location or type of pain he experiences. He still continues to have significant debilitating pain in his left hip on a daily basis. Patient states it does interfere with his ability to perform activities of daily living such as cooking and cleaning or even ambulation. Patient states he is not even able to put on his socks due to the worsening pain symptoms and limited range of motion. Patient has been going to physical therapy however has not gotten any additional improvement. He was released from their care at his last visit and states that they did tell him that they had done all they could and that they did not think he was getting any additional improvement. Patient did previously try and get an MRI of his left hip however it was denied due to the lack of recent physical therapy. He is currently managed with gabapentin 800 mg 3 times a day from Dr. Reyes's office and methocarbamol 750 mg at bedtime and tramadol 50 mg twice daily from our office. Patient denies any side effects from these medications. He does state that the muscle relaxer and the tramadol did seem to help take the edge off. He is requesting refills today. He was also prescribed a 5-day dose of prednisone however he states he has not used this due to concerns with it elevating his blood glucose. His Yunior is [id number]. Its been reviewed and appropriate. Review of Systems: General: No recent weight changes, no fever, no sleep disturbances Respiratory: No cough, no shortness of air, no recurring pulmonary infections Cardiovascular/peripheral vascular: No chest pain, no palpitations, no edema, no shortness of breath Gastrointestinal: No new onset incontinence, normal bowel movements reported Genitourinary: No new onset incontinence Musculoskeletal: Left hip pain Psychiatric: [Normal mood/affect] Neurological: [Denies weakness in extremities], [denies balance issues] Objective:: Physical Exam: General: Alert and oriented x3, no acute distress, pleasant and cooperative Lungs: Respirations even and unlabored, symmetrical chest expansion Eyes: PERRL Musculoskeletal: Flexion and extension of left hip somewhat guarded secondary to pain, [antalgic gait noted] Neurological: Speech clear, no gross sensory deficit Assessment:: Degenerative disc disease of lumbar spine with lumbar radiculopathy symptoms, lumbar postlaminectomy syndrome, chronic neck pain, osteoarthritis left hip, sacroiliitis, groin pain, right leg pain, myofascial pain Plan:: Patient continues to experience significant disability related to his left hip pain. He did have limited range of motion of this joint during today's visit. Patient has tried and failed conservative therapy such as oral medications, heat and ice, topicals, at home stretching and exercise, and physical therapy that he just finished completing this week. I will resubmit to insurance for a MRI without contrast of his left hip. Patient does have a spinal cord stimulator conditional device and will need this turned off prior to his imaging. I will also contact [employer] manufacturer representative to be present for his follow-up appointment for reprogramming. Patient will return to clinic in 3 weeks following this imaging to review findings and plan of care. Patient has been instructed to contact the clinic with any concerns before the next appointment. Dr. Galarza has reviewed this note and agrees with this pl
[2022-09-15 12:15] VITALS: BP 129/72; PULSE 63; RESP 18; O2SAT 98; BMI 32.8
== END | disposition home or self-care (01) ==
PROVIDERS: PCP Internal Medicine Adolescent Medicine; Visit Provider Nurse Practitioner Family
DX: M51.16 Intervertebral disc disorders with radiculopathy, lumbar region (principal); M96.1 Postlaminectomy syndrome, not elsewhere classified; M16.12 Unilateral primary osteoarthritis, left hip; M46.1 Sacroiliitis, not elsewhere classified; M79.10 Myalgia, unspecified site; M79.604 Pain in right leg
CPT/HCPCS: 99212; G0463

== ENCOUNTER → 2022-11-24 14:28 | Outpatient (CLI) | payer MEDICARE, OTHER, SELFPAY ==
[2022-11-24 15:25] LABS: Basophils % 0.7 % (0.1-2.0); Eosinophils # 0.2 K/mm3 (0.0-0.4); Eosinophils % 4.1 % (0.1-12.0); Hematocrit 39.1 % (42.0-52.0); Lymphocytes # 1.2 K/mm3 (0.7-4.5); Lymphocytes % 23.9 % (10-50); Mean Corpuscular HGB Conc 30.7 g/dL (31.8-35.4); Mean Corpuscular Hemoglobin 27.8 pg (27.0-31.2); Mean Corpuscular Volume 90.7 fl (80-94); Mean Platelet Volume 8.7 fl (7.4-10.4); Monocytes # 0.3 K/mm3 (0.1-1.0); Monocytes % 5.3 % (1.7-9.3); Neutrophils # 3.3 K/mm3 (1.8-7.8); Platelet Count 266 K/mm3 (142-424); Red Blood Count 4.31 M/mm3 (4.60-6.20); White Blood Count 4.9 K/mm3 (4.8-10.8)
[2022-11-24 15:40] LABS: Alanine Aminotransferase 41 U/L (12-78); Alkaline Phosphatase 67 U/L (38-126); Aspartate Amino Transferase 39 U/L (17-59); Bilirubin,Indirect 0.2 mg/dL (0.0-0.9); Bilirubin,Total 0.2 mg/dl (0.2-1.3); Bilirubin,Unconjugated 0.3 mg/dL (0.0-1.1); Blood Urea Nitrogen 26 mg/dl (9-20); Calcium 9.3 mg/dl (8.4-10.2); Carbon Dioxide 26 mmol/L (22.0-30.0); Chloride 100 mmol/L (98-107); Chol/HDL Ratio 6.9 (1-3.5); Cholesterol 288 mg/dl (140-200); Estimated Glomerular Filt Rate 63 ml/min (>60); GFR (African American) 76 ML/MIN (>60); HDL Cholesterol 42 mg/dl (40-60); Sodium 135 mmol/L (136-145); Total Protein,Serum 6.6 g/dl (6.3-8.2)
[2022-11-24 15:42] LABS: Triglycerides 514 mg/dl (30-150)
[2022-11-24 15:48] LABS: Glucose 526 mg/dl (74-100); Hemoglobin A1C 12.4 % (4.0-6.0)
[2022-11-24 15:51] LABS: Direct LDL Cholesterol 131.48 mg/dL (100-129)
== END ==
PROVIDERS: PCP Internal Medicine Adolescent Medicine; Visit Provider Nurse Practitioner
DX: I25.10 Atherosclerotic heart disease of native coronary artery without angina pectoris (principal); E78.5 Hyperlipidemia, unspecified; I10 Essential (primary) hypertension; E11.59 Type 2 diabetes mellitus with other circulatory complications; Z79.4 Long term (current) use of insulin
CPT/HCPCS: 36415; 80048; 80061; 80076; 83036; 83735; 85025

== ENCOUNTER → 2022-12-14 14:28 | Outpatient (POV) | payer MEDICARE, OTHER, SELFPAY ==
[2022-12-14 15:54] VITALS: BP 103/50; PULSE 71; RESP 20; O2SAT 98; BMI 32.1
--- NOTE | 2022-12-14 16:22 | EXP.PAIN.SOA ---
[facility] Pain Management SOAP Note Subjective:: Patient is a pleasant 57-year-old male who presents today for follow-up of MRI of his left hip without contrast on December 02, 2022. We are currently treating the patient for degenerative disc disease of the lumbar spine with lumbar radiculopathy symptoms, lumbar postlaminectomy syndrome, osteoarthritis left hip, sacroiliitis, groin pain, right leg pain, myofascial pain, chronic neck pain. Today he rates his pain a 3 out of 10. Patient denies any new trauma or injury or any change to location or type of pain he experiences. Patient does state that his hip still gives him constant pain on a daily basis. He does state that it is debilitating and severe and he is not able to do anything with no quality of life due to the pain. Patient did go to [facility] for an open MRI and does present today to review his findings. Patient is currently managed with gabapentin 800 mg 3 times a day from his primary care doctor and methocarbamol 750 mg at bedtime and tramadol 50 mg twice a day from our office. Patient does state that he has not used the medications from our office as much and does not need refills at this time. His Yunior is [phone]. Its been reviewed and appropriate. Review of Systems: General: No recent weight changes, no fever, no sleep disturbances Respiratory: No cough, no shortness of air, no recurring pulmonary infections Cardiovascular/peripheral vascular: No chest pain, no palpitations, no edema, no shortness of breath Gastrointestinal: No new onset incontinence, normal bowel movements reported Genitourinary: No new onset incontinence Musculoskeletal: Left hip pain Psychiatric: [Normal mood/affect] Neurological: [Denies weakness in extremities], [denies balance issues] Objective:: Physical Exam: General: Alert and oriented x3, no acute distress, pleasant and cooperative Lungs: Respirations even and unlabored, symmetrical chest expansion Eyes: PERRL Musculoskeletal: Flexion and extension of left hip somewhat guarded secondary to pain, [antalgic gait noted] Neurological: Speech clear, no gross sensory deficit [facility] and open MRI December 02, 2022 Left hip MRI without contrast Impression: There 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 There is degenerative tearing of the labrum. There are changes from the femoral acetabulum impingement with cystic change noted along the femoral head and neck junction. There is a paralabral cyst formation noted anteriorly. There is mild tendinopathy and mild tearing of the hamstring tendons attachments Assessment:: degenerative disc disease of the lumbar spine with lumbar radiculopathy symptoms, lumbar postlaminectomy syndrome, osteoarthritis left hip, sacroiliitis, groin pain, right leg pain, myofascial pain, chronic neck pain Plan:: patient continues to experience significant pain in his left hip with limited range of motion. Imaging Patient's MRI did show concerning findings of avascular necrosis along with impingement and tears. I have discussed with the patient that I think he would benefit from a referral to an orthopedic surgeon for possible anterior approach hip arthroplasty. Patient agrees with this plan and I will send a referral to [facility] office for evaluation. Patient will return to our office in 1 month for reevaluation of symptoms and plan of care. Patient has been instructed to contact the clinic with any concerns before the next appointment. Dr. Galarza has reviewed this note and agrees with this plan of care. This note was dictated using voice recognition software and make contain errors or omissions. [facility] Disclaimer: The information contained in this section may have been updated after the patient was seen, as this information can be updated by other users. 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 (Reviewed 11/24/22 @ 13:39 by Silvina Weston
== END ==
PROVIDERS: PCP Internal Medicine Adolescent Medicine; Visit Provider Nurse Practitioner Family
DX: M51.16 Intervertebral disc disorders with radiculopathy, lumbar region (principal); M96.1 Postlaminectomy syndrome, not elsewhere classified; M16.12 Unilateral primary osteoarthritis, left hip; M46.1 Sacroiliitis, not elsewhere classified; R10.30 Lower abdominal pain, unspecified; M79.604 Pain in right leg; M79.10 Myalgia, unspecified site; M54.2 Cervicalgia; G89.29 Other chronic pain
CPT/HCPCS: 99212; G0463

== ENCOUNTER → 2023-01-12 14:30 | Outpatient (POV) | payer MEDICARE, OTHER, SELFPAY ==
--- NOTE | 2023-01-12 14:44 | A.OFFVIS_ITS ---
[facility] Pain Management SOAP Note Subjective:: Patient is a pleasant 57-year-old male who presents today for follow-up. We are currently treating the patient for degenerative disc disease of the lumbar spine with lumbar radiculopathy symptoms, lumbar postlaminectomy syndrome, osteoarthritis left hip, sacroiliitis, groin pain, right leg pain, myofascial pain, chronic neck pain. Today he rates his pain a 6 out of 10. Patient denies any new trauma or injury or any change to location or type of pain he experiences. P he does state that he continues to have left hip pain and that from our last visit the referral to orthopedics he has been to their office. He states that they are planning on doing a total left hip arthroplasty sometime in March. Patient is currently managed with gabapentin 800 mg 3 times a day from his primary care doctor and methocarbamol 750 mg at bedtime and tramadol 50 mg twice a day from our office. His Ynuior is [id number]. Its been reviewed and appropriate. Review of Systems: General: No recent weight changes, no fever, no sleep disturbances Respiratory: No cough, no shortness of air, no recurring pulmonary infections Cardiovascular/peripheral vascular: No chest pain, no palpitations, no edema, no shortness of breath Gastrointestinal: No new onset incontinence, normal bowel movements reported Genitourinary: No new onset incontinence Musculoskeletal: Left hip pain Psychiatric: [Normal mood/affect] Neurological: [Denies weakness in extremities], [denies balance issues] Objective:: Physical Exam: General: Alert and oriented x3, no acute distress, pleasant and cooperative Lungs: Respirations even and unlabored, symmetrical chest expansion Eyes: PERRL Musculoskeletal: Flexion and extension of left hip somewhat guarded secondary to pain, [antalgic gait noted] Neurological: Speech clear, no gross sensory deficit Assessment:: Osteoarthritis left hip, sacroiliitis, groin pain, right leg pain, myofascial pain, chronic neck pain degenerative disc disease of lumbar spine with lumbar radiculopathy symptoms, lumbar postlaminectomy syndrome, left hip pain Plan:: I will refill the patient's methocarbamol 750 mg at bedtime and tramadol 50 mg twice a day and provide a 3-month supply of this medication. Patient will return to clinic in 3 months for reevaluation of symptoms and plan of care. Patient has been instructed to contact the clinic with any concerns before the next appointment. Dr. Galarza has reviewed this note and agrees with this plan of care. This note was dictated using voice recognition software and make contain errors or omissions. [facility] Disclaimer: The information contained in this section may have been updated after the patient was seen, as this information can be updated by other users. 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 Coronary artery disease Diastolic dysfunction Gastroesophageal reflux disease HLD (hyperlipidemia) HTN (hypertension) T2DM (type 2 diabetes mellitus) Unstable angina Surgical History History of back surgery Hx of colonoscopy Family History Other Coronary artery disease Heart attack No significant family history Social History Smoking Status: Never smoker second hand exposure: No alcohol intake: never substance use type: denies use current occupational status: employed Travel in the last 8 weeks: None household members: spouse housing: house current occupational exposures/hazards: No caf
[2023-01-12 14:55] VITALS: BP 107/57; PULSE 58; RESP 18; O2SAT 97; BMI 30.4
== END | disposition home or self-care (01) ==
PROVIDERS: PCP Internal Medicine Adolescent Medicine; Visit Provider Nurse Practitioner Family
DX: M51.16 Intervertebral disc disorders with radiculopathy, lumbar region (principal); M96.1 Postlaminectomy syndrome, not elsewhere classified; M16.12 Unilateral primary osteoarthritis, left hip; M46.1 Sacroiliitis, not elsewhere classified; R10.30 Lower abdominal pain, unspecified; M79.604 Pain in right leg; M79.10 Myalgia, unspecified site; M54.2 Cervicalgia; G89.29 Other chronic pain
CPT/HCPCS: 99212; G0463

== ENCOUNTER → 2023-01-20 11:32 | Outpatient (CLI) | payer MEDICARE, OTHER, SELFPAY ==
[2023-01-20 11:59] LABS: Basophils % 0.8 % (0.1-2.0); Eosinophils # 0.2 K/mm3 (0.0-0.4); Eosinophils % 4.9 % (0.1-12.0); Hemoglobin 12.7 g/dL (14.1-18.0); Lymphocytes # 1.5 K/mm3 (0.7-4.5); Lymphocytes % 31.4 % (10-50); Mean Corpuscular Hemoglobin 27.6 pg (27.0-31.2); Mean Corpuscular Volume 88.9 fl (80-94); Mean Platelet Volume 8.4 fl (7.4-10.4); Monocytes # 0.3 K/mm3 (0.1-1.0); Neutrophils # 2.8 K/mm3 (1.8-7.8); Neutrophils % 56.8 % (37.0-80.0); Platelet Count 292 K/mm3 (142-424); Red Blood Count 4.61 M/mm3 (4.60-6.20); Red Cell Distribution Width 13.8 % (11.5-17.5); White Blood Count 4.9 K/mm3 (4.8-10.8)
[2023-01-20 12:48] LABS: Alanine Aminotransferase 29 U/L (12-78); Albumin Level 4.1 g/dl (3.5-5.0); Albumin/Globulin Ratio 1.4 (1.1-1.8); Alkaline Phosphatase 47 U/L (38-126); Anion Gap 11.3 mEq/L (5-15); Aspartate Amino Transferase 32 U/L (17-59); Bilirubin,Total 0.3 mg/dl (0.2-1.3); Blood Urea Nitrogen 28 mg/dl (9-20); Calcium 9.5 mg/dl (8.4-10.2); Carbon Dioxide 28 mmol/L (22.0-30.0); Chloride 105 mmol/L (98-107); Chol/HDL Ratio 4.7 (1-3.5); Cholesterol 215 mg/dl (140-200); Estimated Glomerular Filt Rate 69 ml/min (>60); GFR (African American) 84 ML/MIN (>60); Globulin 2.9 g/dL (1.3-3.2); Glucose 253 mg/dl (74-100); HDL Cholesterol 46 mg/dl (40-60); Potassium 5.3 mmoL/L (3.5-5.1); Sodium 139 mmol/L (136-145); Triglycerides 182 mg/dl (30-150); VLDL Cholesterol 36 mg/dL (0-40)
[2023-01-20 13:00] LABS: Direct LDL Cholesterol 118.97 mg/dL (100-129)
[2023-01-20 13:19] LABS: Thyroid Stimulating Hormone 2.74 uIU/mL (0.465-4.68)
[2023-01-20 13:20] LABS: Hemoglobin A1C 10.1 % (4.0-6.0)
== END ==
PROVIDERS: PCP Internal Medicine Adolescent Medicine; Visit Provider Nurse Practitioner Family
DX: E11.9 Type 2 diabetes mellitus without complications (principal); E78.1 Pure hyperglyceridemia; E78.5 Hyperlipidemia, unspecified; R53.83 Other fatigue; Z79.4 Long term (current) use of insulin; Z79.84 Long term (current) use of oral hypoglycemic drugs
CPT/HCPCS: 36415; 80053; 80061; 83036; 84443; 85025

== ENCOUNTER → 2023-04-12 13:42 | Outpatient (POV) | payer MEDICARE, OTHER, SELFPAY ==
--- NOTE | 2023-04-12 14:28 | EXP.PAIN.SOA ---
[facility] Pain Management SOAP Note Subjective:: Patient is a pleasant 58-year-old male who presents today for 3-month follow-up and medication refill. We are currently treating the patient for degenerative disc disease of lumbar spine with lumbar radiculopathy symptoms, lumbar postlaminectomy syndrome, osteoarthritis left hip, sacroiliitis, groin pain, right leg pain, myofascial pain, chronic neck pain. Today he rates his pain a 5 out of 10. Patient denies any new trauma or injury. He states that he continues to have significant pain in his left hip. Patient was sent to [facility] office for evaluation of this and was told that he was recommending hip replacement. Patient states that he was sent for cardiac clearance which she did get and that there was discussion of having this procedure done in March but then he never heard anything. Patient states that he has tried calling his office and left a voicemail but has not heard back. Patient is currently managed with gabapentin 800 mg 3 times a day from his primary care provider and methocarbamol 750 mg at bedtime and tramadol 50 mg twice a day from our office. Patient denies any side effects from these medications. His Yunior has been reviewed and is appropriate. Review of Systems: General: No recent weight changes, no fever, no sleep disturbances Respiratory: No cough, no shortness of air, no recurring pulmonary infections Cardiovascular/peripheral vascular: No chest pain, no palpitations, no edema, no shortness of breath Gastrointestinal: No new onset incontinence, normal bowel movements reported Genitourinary: No new onset incontinence Musculoskeletal: Left hip pain Psychiatric: [Normal mood/affect] Neurological: [Denies weakness in extremities], [denies balance issues] Objective:: Physical Exam: General: Alert and oriented x3, no acute distress, pleasant and cooperative Lungs: Respirations even and unlabored, symmetrical chest expansion Eyes: PERRL Musculoskeletal: Flexion and extension of left hip somewhat guarded secondary to pain, [antalgic gait noted] Neurological: Speech clear, no gross sensory deficit Assessment:: degenerative disc disease of lumbar spine with lumbar radiculopathy symptoms, lumbar postlaminectomy syndrome, osteoarthritis left hip, sacroiliitis, groin pain, right leg pain, myofascial pain, chronic neck pain Plan:: I will refill the patient's methocarbamol 750 mg at bedtime and tramadol 50 mg twice a day and provide a 3-month supply of this medication. I have counseled the patient that I will reach out to and see if he can have his office contact the patient for follow-up and or surgical date information. Patient will return to clinic in 3 months for reevaluation of symptoms and medication refill. Patient has been advised of risks of oversedation with the prescribed medication. Narcan has been offered to the patient in the event of oversedation. Patient has been advised that a family member should also be educated regarding administration of Narcan. Patient has been instructed to contact the clinic with any concerns before the next appointment. Dr. Galarza has reviewed this note and agrees with this plan of care. This note was dictated using voice recognition software and make contain errors or omissions. [facility] Disclaimer: The information contained in this section may have been updated after the patient was seen, as this information can be updated by other users. 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 Coronary artery disease Diastolic dysfunction Gastroesophageal reflux disease HLD (hyperlipidemia) HTN (hypertension) T2DM (type 2 diabetes mellitus) Unstable angina Surgical History History of back surgery Hx of colonoscopy Family History Other Coronary artery disease Heart attack No significant family history Social Histo
[2023-04-12 14:29] VITALS: BP 122/72; PULSE 66; RESP 18; O2SAT 97; BMI 31.1
== END | disposition home or self-care (01) ==
PROVIDERS: PCP Internal Medicine Adolescent Medicine; Visit Provider Nurse Practitioner Family
DX: M51.16 Intervertebral disc disorders with radiculopathy, lumbar region (principal); M96.1 Postlaminectomy syndrome, not elsewhere classified; M16.12 Unilateral primary osteoarthritis, left hip; M46.1 Sacroiliitis, not elsewhere classified; R10.30 Lower abdominal pain, unspecified; M79.604 Pain in right leg; M79.10 Myalgia, unspecified site; M54.2 Cervicalgia; G89.29 Other chronic pain
CPT/HCPCS: 99212; G0463

== ENCOUNTER 2023-05-05 09:40 | Day surgery (SDC) | payer MEDICARE, OTHER, SELFPAY ==
[2023-05-05] VITALS (7 sets, daily range): BP systolic 86–158; BP diastolic 45–72; PULSE 50–62; RESP 14–18; TEMP 36.1–36.4; O2SAT 92–98; BMI 31.0
[2023-05-05 10:08] LABS: POC Glucose,Bedside 85 (70-110)
[2023-05-05] MEDS: LACTATED RINGERS 1000ML 1,000 ML 25 ML IV (10:12)
--- NOTE | 2023-05-05 10:16 | P.PNANES_ITS ---
[facility] Disclaimer: The information contained in this section may have been updated after the patient was seen, as this information can be updated by other users. 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 (Updated 05/05/23 @ 10:06 by Cyndi Miraz RN) Coronary artery disease Diastolic dysfunction Gastroesophageal reflux disease History of COVID-19 History of gastroesophageal reflux (GERD) HLD (hyperlipidemia) HTN (hypertension) T2DM (type 2 diabetes mellitus) Unstable angina Surgical History (Updated 05/05/23 @ 10:06 by Cyndi Mirza RN) History of back surgery History of surgery Hx of colonoscopy Hx of heart artery stent Family History (Updated 05/05/23 @ 10:06 by Cyndi Mirza RN) Other Coronary artery disease Heart attack Social History (Updated 05/05/23 @ 10:07 by Cyndi Mirza RN) Smoking Status: Never smoker second hand exposure: No alcohol intake: never substance use type: denies use current occupational status: disabled Travel in the last 8 weeks: None household members: spouse housing: house current occupational exposures/hazards: No caffeine: Yes [facility] Anesthesia Checklist Patient Identification Patient Identification: Arm Band Structural Data Admitted From: Home Planned Operative Procedure/s: Colonoscopy Consent for Planned Operative Procedure(s) Verified: Yes Verified Documents: Surgical Consent and History and Physical NPO Status Verified Time NPO: 00:00 Additional verifications Anesthesia Reactions: No Hx Blood Transfusions: No Blood Transfusion Reaction: No Airway Assessment Mallampati Score:: Class II C-Spine Mobility Assessed: Yes TMJ Mobility Assessed: Yes Dentition: Edentulous Neurological Assessment Level of Consciousness: Awake and Alert Anesthesia Plan Anesthesia Risk discussed: Yes Anesthesia Plan: Verified ASA Class: III Anesthesia Type: MAC
--- NOTE | 2023-05-05 11:09 | EXP.PN ---
Subjective *Date: 05/05/23 *Time: 11:09 Interval history: Pre-op ASA Physical Status classification changed to IV d/t chronic unstable angina, requiring NTG, and multiple comorbidities. Exam Data for Last 24 hours Vital signs and Labs for Last 24 Hours: Temp Pulse Resp BP Pulse Ox O2 Del Method 97.0 F L 62 18 158/72 H 98 Room Air 05/05/23 10:02 05/05/23 10:02 05/05/23 10:02 05/05/23 10:02 05/05/23 10:02 05/05/23 10:02 Laboratory Results - last 24 hr 05/05/23 09:57: POC Glucose 85 I & O for Last 24 hours: Intake & Output 05/02/23 05/03/23 05/04/23 05/05/23 23:59 23:59 23:59 23:59 Weight 92.986 kg
--- NOTE | 2023-05-05 11:15 | P.PCN_ITS ---
Procedure: Date: 05/05/23 Patient Date of :: 1965 Procedure Performed:: Total colonoscopy to terminal ileum with polypectomy using snare Indications:: Patient is a 58-year-old male from [place] with history of coronary artery disease, unstable angina, diabetes, peripheral arterial occlusive disease, hypertension, hyperlipidemia, GERD. He was scheduled for screening colonoscopy. He had previous colonoscopy with Dr. Mcgee in 06/30/2016 at which time he had several complex polyps removed. He recommended repeat colonoscopy in 2 years. Performing Provider:: Maykel Bryan MD Referring Provider:: Dayton Reyes MD Sedation:: MAC sedation Procedure:: Patient history was obtained and appropriate physical examination was performed. Patient's medications and allergies were reviewed. Informed consent was obtained after explaining the benefits, alternatives, and risks of the procedure including, but not limited to, bleeding, perforation, missed lesions, and adverse reaction to anesthesia medications. Patient was transported to endoscopy procedure room. Patient was connected to monitoring devices. Throughout the procedure the patient's blood pressure, pulse, and oxygen saturations were monitored continuously. Patient identification and planned procedure were verified by the staff. Patient was positioned in lateral decubitus position. Digital anorectal exam was performed. Variable stiffness Olympus colonoscope was inserted and advanced under direct visualization to the cecum. Adequacy of the colonic preparation was noted. The colonoscope was advanced a short distance into the terminal ileum. The colonoscope was then slowly withdrawn while carefully examining the color, texture, anatomy, and integrity of the mucosoa circumferentially. Within the rectum retroflexion was performed. Colonoscope was then withdrawn. . Colonoscope was advanced to the cecum. Upon advancement of the colonoscope there was noted to be a moderate polyp likely in the left colon. Colonic prepar ation was poor but fair visualization was achieved with thorough trans colonoscopic irrigation and suctioning. Colonoscope was withdrawn through the colon. In the proximal sigmoid colon there was an adenomatous appearing polyp removed with cold snare. In the mid sigmoid colon there was adenomatous polyp removed with cold snare. Rectosigmoid was then reached. The previously noted polyp was not identified. Therefore colonoscope was readvanced to the right colon. Colonoscope was slowly withdrawn and polyp was noted on a fold as a ridge polyp apparently just distal to the splenic flexure. It was removed with cold snare and sent as descending colon polyp. Colonoscope was then withdrawn through the remainder of the colon once again. . Findings:: Fair preparation Sigmoid diverticuli Adenomatous appearing polyp x 3 in the proximal sigmoid, mid sigmoid, and descending colon Recommendations:: Pending pathology likely repeat colonoscopy 2 or 3 years given suboptimal preparation and multiple adenomatous polyps as well as previous history of apparent adenomatous polyps Complications:: None immediately apparent Estimated blood obtained (mL): 1 Colonoscopy Component Colonoscopy Component Was a colonoscopy performed during today's procedure?: Yes Recommended follow up colonoscopy of at least 10 years?: No If no, follow up colonoscopy recommended in ___ years?: See above Reason for not recommending >/= 10 yr follow-up interval?: See above
--- NOTE | 2023-05-05 12:05 | P.PNANES_ITS ---
[facility] Anesthesia Record Part I Anesthesia Record I Intake, IV Amount: 600 Hydration: Adequate Estimated blood loss (mL): 1 Urine output (mL): 0 Blood Products used (#): none Blood Pressure: 91/50 SaO2: 92 Pulse Rate: 51 Airway Patency: Patent Respiratory Rate: 16 Temperature: 97.6 F Patient is:: Awake, Drowsy and Stable Stable to PACU at:: 12:04
[2023-05-05 12:09] LABS: POC Glucose,Bedside 194 (70-110)
== END 2023-05-05 12:40 | disposition home or self-care (01) ==
PROVIDERS: PCP Internal Medicine Adolescent Medicine; Visit Provider Surgery
PROC: 0DJD8ZZ Inspection of Lower Intestinal Tract, Via Natural or Artificial Opening Endoscopic (ICD-10-PCS; CPT 45385; principal; 2023-05-05 10:30)
DX: Z12.11 Encounter for screening for malignant neoplasm of colon (principal); Z86.010 Personal history of colon polyps; D12.5 Benign neoplasm of sigmoid colon; E11.9 Type 2 diabetes mellitus without complications
CPT/HCPCS: 45385; 82962; 88305; J2704

== ENCOUNTER 2023-08-14 09:06 | Outpatient (POV) | payer MEDICARE, OTHER, SELFPAY ==
[2023-08-14 09:23] VITALS: BP 137/70; PULSE 73; RESP 16; O2SAT 100; BMI 32.3
--- NOTE | 2023-08-14 10:03 | EXP.PAIN.SOA ---
[facility] Pain Management SOAP Note Subjective:: Patient is a pleasant 58-year-old male who presents today for 3-month follow-up. Today he rates his pain a 4 out of 10. From our last visit he does state that he did end up having a left hip replacement about 5 weeks ago and is still recovering from this. Patient states he is doing well. He states he has been released from home health therapy and is going to start current physical therapy outpatient. He does state that part of his pain is related to his right shoulder and that he has done an MRI at [facility] that did show some rotator cuff tear. Patient is still seeing and states he is very pleased with his care. He states that he has not yet gone over his shoulder imaging as he wanted to focus on the hip first. Patient is currently managed with gabapentin 800 mg 3 times a day from his PCP however he states that he is switching to Malaika Gordon at [facility] in [place] and states that she would not be able to prescribe the gabapentin. He is requesting if we can take over this medication in future. He states he does still have another refill and does not need it at this time. Patient is prescribed methocarbamol 750 mg at bedtime and tramadol 50 mg twice a day from our office. He denies any side effects from this medication. He states he has not been taking these on a regular basis and does not need refills at this time. His Yunior has been reviewed. Review of Systems: General: No recent weight changes, no fever, no sleep disturbances Respiratory: No cough, no shortness of air, no recurring pulmonary infections Cardiovascular/peripheral vascular: No chest pain, no palpitations, no edema, no shortness of breath Gastrointestinal: No new onset incontinence, normal bowel movements reported Genitourinary: No new onset incontinence Musculoskeletal: Right shoulder pain Psychiatric: [Normal mood/affect] Neurological: [Denies weakness in extremities], [denies balance issues] Objective:: Physical Exam: General: Alert and oriented x3, no acute distress, pleasant and cooperative Lungs: Respirations even and unlabored, symmetrical chest expansion Eyes: PERRL Musculoskeletal: Flexion and extension of right shoulder somewhat guarded secondary to pain, [antalgic gait noted] Neurological: Speech clear, no gross sensory deficit Assessment:: Degenerative disc disease of lumbar spine with lumbar radiculopathy symptoms, lumbar postlaminectomy syndrome, osteoarthritis left hip, sacroiliitis, groin pain, right leg pain, myofascial pain, chronic neck pain Plan:: Patient is doing well currently and does not require any additional refills at this time. I have counseled the patient that we have no issues with taking over his gabapentin prescription. We will plan on doing this at his next visit once he has used his current refills up. I have also counseled the patient in future we can do intra-articular shoulder injections or suprascapular nerve block for his shoulder pain. We will follow-up with him at his next visit. Patient will return to clinic in 1 month for reevaluation of symptoms and plan of care. Patient has been instructed to contact the clinic with any concerns before the next appointment. Dr. Galarza has reviewed this note and agrees with this plan of care. This note was dictated using voice recognition software and make contain errors or omissions. [facility] Disclaimer: The information contained in this section may have been updated after the patient was seen, as this information can be updated by other users. 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
== END 2023-08-14 23:59 ==
LOC: SC.PAIN 09:07
PROVIDERS: Visit Provider Nurse Practitioner Family
DX: M51.16 Intervertebral disc disorders with radiculopathy, lumbar region (principal); M96.1 Postlaminectomy syndrome, not elsewhere classified; Z96.642 Presence of left artificial hip joint; M46.1 Sacroiliitis, not elsewhere classified; R10.2 Pelvic and perineal pain; M79.604 Pain in right leg; M79.10 Myalgia, unspecified site; M54.2 Cervicalgia; G89.29 Other chronic pain
CPT/HCPCS: 99212; G0463

== ENCOUNTER 2023-09-22 09:57 | Outpatient (POV) | payer MEDICARE, OTHER, SELFPAY ==
[2023-09-22 10:42] VITALS: BP 130/82; PULSE 74; RESP 18; O2SAT 100; BMI 32.1
--- NOTE | 2023-09-22 10:57 | EXP.PAIN.SOA ---
[facility] Pain Management SOAP Note Subjective:: Patient is a pleasant 58-year-old male who presents today for medication refill and follow-up. Today he rates his pain a 5 out of 10. Patient denies any new trauma or injury. He does state that he still has trouble with the right shoulder and did want to know if we had received the imaging from [facility]. Patient is currently managed with gabapentin 800 mg 3 times a day, methocarbamol 750 mg at bedtime and tramadol 50 mg twice a day from our office. Patient denies any side effects from this medication. At our last visit we had discussed taking over the gabapentin prescription and he is does state that he is nearly out of this medication and if we can start this month on that. His Yunior has been reviewed and is appropriate. Review of Systems: General: No recent weight changes, no fever, no sleep disturbances Respiratory: No cough, no shortness of air, no recurring pulmonary infections Cardiovascular/peripheral vascular: No chest pain, no palpitations, no edema, no shortness of breath Gastrointestinal: No new onset incontinence, normal bowel movements reported Genitourinary: No new onset incontinence Musculoskeletal: Right shoulder pain Psychiatric: [Normal mood/affect] Neurological: [Denies weakness in extremities], [denies balance issues] Objective:: Physical Exam: General: Alert and oriented x3, no acute distress, pleasant and cooperative Lungs: Respirations even and unlabored, symmetrical chest expansion Eyes: PERRL Musculoskeletal: Flexion and extension of right shoulder somewhat guarded secondary to pain, [antalgic gait noted] Neurological: Speech clear, no gross sensory deficit Assessment:: Degenerative disc disease of lumbar spine with lumbar radiculopathy symptoms, lumbar postlaminectomy syndrome, osteoarthritis left hip, sacroiliitis, groin pain, right leg pain, myofascial pain, neck pain, right shoulder pain Plan:: I will send in a 2-month supply of the gabapentin, tramadol and methocarbamol. Patient will return to clinic in 2 months for reevaluation of symptoms and plan of care. I did discuss with patient if he can bring in a copy of his imaging that was done for his right shoulder that would be wonderful if not we can always call for the report. Patient is agreeable to this plan of care. Risks and benefits of the medication have been explained in detail to the patient. The patient does understand the risk of dependence on the medication when given over a prolonged period. Patient has been advised of risks of oversedation with the prescribed medication. Narcan has been offered to the paitent in the event of oversedation. Patient has been advised that a family member should also be educated regarding administration of Narcan. The patient has been advised to consult with his/her primary care provider and pharmacist regarding drug-drug interaction of medications currently prescribed. Patient has been prescribed a controlled substance after being counseled on the medication, medication safety, and possible side effects. Opioid contract was reviewed and signed by the patient, and that they have agreed to all of the terms set forth by our compliance program. Patient has been instructed to contact the clinic with any concerns before the next appointment. Dr. Galarza has reviewed this note and agrees with this plan of care. This note was dictated using voice recognition software and make contain errors or omissions. [facility] Disclaimer: The information contained in this section may have been updated after the patient was seen, as this information can be updated by other users. 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
== END 2023-09-22 23:59 | disposition home or self-care (01) ==
PROVIDERS: PCP Internal Medicine Adolescent Medicine; Visit Provider Nurse Practitioner Family
DX: M51.16 Intervertebral disc disorders with radiculopathy, lumbar region (principal); M96.1 Postlaminectomy syndrome, not elsewhere classified; M16.12 Unilateral primary osteoarthritis, left hip; M46.1 Sacroiliitis, not elsewhere classified; R10.30 Lower abdominal pain, unspecified; M79.604 Pain in right leg; M79.10 Myalgia, unspecified site; M54.2 Cervicalgia; M25.511 Pain in right shoulder
CPT/HCPCS: 99212; G0463

== ENCOUNTER 2023-10-08 12:13 | Emergency (ER) | payer MEDICARE, OTHER, SELFPAY ==
[2023-10-08 12:35] VITALS: BP 160/94; PULSE 74; RESP 19; TEMP 36.6; O2SAT 100; BMI 31.8
--- NOTE | 2023-10-08 13:26 | EXP.UTC ---
Discharge Plan Disposition Patient Disposition: Home, Self-Care Condition: Good Prescriptions Prescriptions: New minocycline 100 mg capsule 100 mg PO BID Qty: 20 0RF No Action (DME) pen needle, diabetic [BD Ultra-Fine Mini Pen Needle] 31 gauge x 3/16 needle See Rx Instructions .ROUTE .MEDSUPPLY Qty: 1200 Patient Comments: USE PEN NEEDLE TO INJECT INSULIN 4 OR MORE TIMES DAILY Rx Instructions: As directed lisinopril 20 mg tablet 20 mg PO DAILY Patient Comments: TAKE 1 TABLET BY MOUTH ONCE DAILY FOR HIGH BLOOD PRESSURE bisoprolol fumarate 10 mg tablet 10 mg PO DAILY Patient Comments: TAKE 1 TABLET BY MOUTH ONCE DAILY FOR BLOOD PRESSURE methocarbamol 750 mg tablet 750 mg PO DAILY gabapentin 800 mg tablet 800 mg PO DAILY Patient Comments: TAKE 1 TABLET BY MOUTH THREE TIMES DAILY metformin 1,000 mg tablet 1,000 mg PO DAILY omeprazole 20 mg capsule,delayed release(DR/EC) 20 mg PO DAILY furosemide 20 mg tablet 20 mg PO DAILY Patient Comments: TAKE 1 TABLET BY MOUTH ONCE DAILY FOR FLUID duloxetine 60 mg capsule,delayed release(DR/EC) 60 mg PO DAILY Patient Comments: TAKE 1 CAPSULE BY MOUTH ONCE DAILY fenofibrate nanocrystallized 145 mg tablet 145 mg PO DAILY Patient Comments: TAKE 1 TABLET BY MOUTH ONCE DAILY Jardiance 25 mg tablet 25 mg PO DAILY Referrals Follow up/Referrals: Dayton Reyes MD [Primary Care Provider] - See instructions Activity Restrictions/Add. Instructions Additional Instructions/Restrictions: FOLLOW UP WITH PCP IF SYMPTOMS WORSEN OR NO IMPROVEMENT RETURN OR BE SEEN IN ED Clinical Impressions Clinical Impression: Abscess Instructions Patient Instructions: DI for Skin Abscess Discharge ED Provider: Romina ([facility])[place] [facility] General Stated complaint: left middle finger throbbing Mode of Arrival: Ambulatory Source of Information: Patient and Spouse Limitations: No Limitations Time Seen by Provider: 10/08/23 13:26 Description of Symptoms (Recalled from Triage Doc. by RN): PATIENT REPORTS SWELLING, PAIN AND REDNESS TO LEFT MIDDLE FINGER AROUND THE NAIL AREA THAT STARTED LAST NIGHT. HE STATES HE HAD A CYST-LIKE PLACE TO THAT AREA FOR APPROX 1 YEAR AND WAS SUPPOSED TO FOLLOW-UP WITH DERMATOLOGY BUT HAS YET TO DO SO. PATIENT DENIES FEVER OR DRAINAGE FROM AREA HEENT Symptoms (Recalled from RN notes): No Resp Symptoms (Recalled from RN notes): No Skin Symptoms (Recalled from RN notes): Yes MS Symptoms (Recalled from RN notes): No Functional Status (Recalled from RN notes): WNL History of Present Illness Provider Complaint: 58 YR OLD MALE PRESENTS FOR C/O SWELLING, PAIN AND REDNESS TO LEFT MIDDLE FINGER AROUND THE NAIL AREA THAT STARTED LAST NIGHT. HE STATES HE HAD A CYST-LIKE PLACE TO THAT AREA FOR APPROX 1 YEAR AND WAS SUPPOSED TO FOLLOW-UP WITH DERMATOLOGY BUT HAS YET TO DO SO. PATIENT DENIES FEVER OR DRAINAGE FROM AREA Related Data Home Medications Medication Instructions Recorded Confirmed pen needle, diabetic 31 gauge x #1,200 ea 03/21/23 10/08/2307/14 (BD Ultra-Fine Mini Pen Needle) bisoprolol fumarate 10 mg tablet 10 mg PO DAILY 10/08/23 10/08/23 duloxetine 60 mg capsule,delayed 60 mg PO DAILY 10/08/23 10/08/23 release empagliflozin 25 mg tablet 25 mg PO DAILY 10/08/23 10/08/23 (Jardiance) fenofibrate nanocrystallized 145 145 mg PO DAILY 10/08/23 10/08/23 mg tablet furosemide 20 mg tablet 20 mg PO DAILY 10/08/23 10/08/23 gabapentin 800 mg tablet 800 mg PO DAILY 10/08/23 10/08/23 lisinopril 20 mg tablet 20 mg PO DAILY 10/08/23 10/08/23 metformin 1,000 mg tablet 1,000 mg PO DAILY 10/08/23 10/08/23 methocarbamol 750 mg tablet 750 mg PO DAILY 10/08/23 10/08/23 omeprazole 20 mg capsule,delayed 20 mg PO DAILY 10/08/23 10/08/23 release Previous Rx's Medication Instructions Recorded minocycline 100 mg capsule 100 mg PO BID #20 caps 10/08/23 Allergies Allergy/AdvReac Type Severity Reaction Status Date / Time Penicillins [PENICILLINS] Allergy Intermediate I-HIVES Verified 06/13/23 14:41 Worker's Comp Is this a Worker's Comp case?: No [facility] Disclaimer: The information contained in this section may have been updated after the patient was seen, as this information can be updated by other users. 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) Smoking Status: Never smoker second hand exposure: No alcohol intake: never substance use type: denies use current occupational status: other Travel in the last 8 weeks: None household members: spouse housing: house current occupational exposures/hazards: No caffeine: Yes ROS Obtained: Yes All systems reviewed & no additional complaints except as documented Constitutional Constitutional: Reports system reviewed and no additional complaints, except as documented Eyes Eyes: Reports system reviewed and no additional complaints, except as documented ENT Ears, Nose, Mouth, and Throat: Reports system reviewed and no additional complaints, except as documented Cardiovascular Cardiovascular: Reports system reviewed and no additional complaints, except as documented Respiratory Respiratory: Reports system reviewed and no additional complaints, except as documented Gastrointestinal Gastrointestingal: Reports system reviewed and no additional complaints, except as documented Musculoskeletal Musculoskeletal: Reports system reviewed and no additional complaints, except as documented, Reports as per HPI and Reports other Integumentary/Breasts Skin/Breast: Reports system reviewed and no additional complaints, except as documented, Reports as per HPI, Reports skin swelling and Reports wounds Neurologic Neurologic: Reports system reviewed and no additional complaints, except as documented Endocrine Endocrine: Reports system reviewed and no additional complaints, except as documented Hematologic/Lymphatic Henatologic/Lymphatic: Reports system reviewed and no additional complaints, except as documented Allergic/Immunologic Allergic/Immunologic: Reports system reviewed and no additional complaints, except as documented Physical Exam General General appearance: alert and in no apparent distress Eye Eye exam: Present normal appearance ENT ENT exam: Present normal exam, normal oropharynx and TM's normal bilaterally Respiratory Respiratory exam: Present normal lung sounds bilaterally Cardiovascular Cardiovascular exam: Present regular rate and normal rhythm Expanded Upper Extremity Exam Left: Hand L/R back image: 1. REDNESS Neurological Exam Neurological exam: Present alert and oriented X3 Skin Skin exam: Present warm and other Medical Decision Making Medical Records Medical records reviewed: Yes I reviewed the patient's medical records. Yunior Inquiry Pt receiving controlled substance: No Yunior was queried for this patient: No Vital Signs: 10/08/23 12:35 Temperature 97.9 F Temperature Source Oral Pulse Rate [Left Brachial] 74 Respiratory Rate 19 Blood Pressure [Left Arm] 160/94 H Blood Pressure Mean [Left Arm] 116 Blood Pressure Source [Left Arm] Automatic Cuff Blood Pressure Position [Left Arm] Sitting 02 Sat by Pulse Oximetry 100
[2023-10-08] MEDS: IBUPROFEN 400 MG TABLET PO (13:41)
--- NOTE | 2023-10-08 13:42 | PC.NURSE ---
Per pt states that bs baseline is normally around 300s
[2023-10-08 13:43] VITALS: BP 160/94; PULSE 74; RESP 19; TEMP 36.6; O2SAT 100
[2023-10-08 13:43] LABS: POC Glucose,Bedside 364 (70-110)
== END 2023-10-08 13:49 | disposition home or self-care (01) ==
PROVIDERS: Emergency Provider Nurse Practitioner Family; PCP Internal Medicine Adolescent Medicine
DX: L02.512 Cutaneous abscess of left hand (principal); E11.65 Type 2 diabetes mellitus with hyperglycemia; Z79.84 Long term (current) use of oral hypoglycemic drugs
CPT/HCPCS: 82962; 99212; 99214; G0463

== ENCOUNTER 2023-10-12 09:55 | Emergency (ER) | payer MEDICARE, OTHER, SELFPAY ==
[2023-10-12 09:56] VITALS: BP 143/76; PULSE 76; RESP 18; TEMP 36.9; O2SAT 100; BMI 30.8
--- NOTE | 2023-10-12 10:06 | XR_ITS ---
FINAL REPORT CLINICAL HISTORY: left 3rd digit redness and swelling. COMPARISON: None FINDINGS: LEFT HAND: 3 views of the left hand were obtained. There is no acute fracture or dislocation. Visualized joint spaces are normally aligned. Soft tissue swelling is noted. IMPRESSION: Soft tissue swelling without acute bony abnormality. Reviewed, Interpreted and Dictated by Maykel Saha III, MD Transcribed by Michelle Jc Authenticated and [facility][1]
--- NOTE | 2023-10-12 10:15 | PC.NURSE ---
returned from radiology.
[2023-10-12 10:27] LABS: Chloride 103 mmol/L (98-107); Potassium 4.5 mmoL/L (3.5-5.1); Sodium 137 mmol/L (136-145)
[2023-10-12 10:29] LABS: Basophils % 0.7 % (0.1-2.0); Eosinophils # 0.2 K/mm3 (0.0-0.4); Eosinophils % 3.6 % (0.1-12.0); Hematocrit 39.2 % (42.0-52.0); Hemoglobin 12.6 g/dL (14.1-18.0); Lymphocytes # 1.2 K/mm3 (0.7-4.5); Lymphocytes % 20.8 % (10-50); Mean Corpuscular HGB Conc 32.1 g/dL (31.8-35.4); Mean Corpuscular Hemoglobin 27.8 pg (27.0-31.2); Mean Corpuscular Volume 86.4 fl (80-94); Mean Platelet Volume 8.6 fl (7.4-10.4); Monocytes # 0.3 K/mm3 (0.1-1.0); Neutrophils # 3.9 K/mm3 (1.8-7.8); Neutrophils % 68.9 % (37.0-80.0); Platelet Count 257 K/mm3 (142-424); Red Blood Count 4.53 M/mm3 (4.60-6.20); Red Cell Distribution Width 15.4 % (11.5-17.5); White Blood Count 5.7 K/mm3 (4.8-10.8)
[2023-10-12 10:30] LABS: Alanine Aminotransferase 31 U/L (12-78); Albumin Level 3.9 g/dl (3.5-5.0); Albumin/Globulin Ratio 1.1 (1.1-1.8); Alkaline Phosphatase 83 U/L (38-126); Anion Gap 13.5 mEq/L (5-15); Aspartate Amino Transferase 35 U/L (17-59); Bilirubin,Total 0.3 mg/dl (0.2-1.3); Blood Urea Nitrogen 29 mg/dl (9-20); Calcium 9.7 mg/dl (8.4-10.2); Carbon Dioxide 25 mmol/L (22.0-30.0); Creatinine Clearance Estimated 86 mL/min (50-200); Estimated Glomerular Filt Rate 62 ml/min (>60); GFR (African American) 76 ML/MIN (>60); Globulin 3.5 g/dL (1.3-3.2); Glucose 257 mg/dl (74-100); Total Protein,Serum 7.4 g/dl (6.3-8.2)
[2023-10-12 10:35] LABS: C-Reactive Protein 69.3 mg/L (0-4)
[2023-10-12 11:00] VITALS: BP 103/76; PULSE 81; RESP 16; O2SAT 99
[2023-10-12 11:41] LABS: Erythrocyte Sedimentation Rate 28 mm/hr (0-20)
--- NOTE | 2023-10-12 12:23 | HMH.EDGENADL ---
Discharge Plan Disposition Patient Disposition: Home, Self-Care Prescriptions Prescriptions: New sulfamethoxazole-trimethoprim [Bactrim DS] 800-160 mg tablet 1 tab PO BID 10 Days Qty: 20 0RF No Action (DME) pen needle, diabetic [BD Ultra-Fine Mini Pen Needle] 31 gauge x 3/16 needle See Rx Instructions .ROUTE .MEDSUPPLY Qty: 1200 Patient Comments: USE PEN NEEDLE TO INJECT INSULIN 4 OR MORE TIMES DAILY Rx Instructions: As directed lisinopril 20 mg tablet 20 mg PO DAILY Patient Comments: TAKE 1 TABLET BY MOUTH ONCE DAILY FOR HIGH BLOOD PRESSURE bisoprolol fumarate 10 mg tablet 10 mg PO DAILY Patient Comments: TAKE 1 TABLET BY MOUTH ONCE DAILY FOR BLOOD PRESSURE methocarbamol 750 mg tablet 750 mg PO DAILY gabapentin 800 mg tablet 800 mg PO DAILY Patient Comments: TAKE 1 TABLET BY MOUTH THREE TIMES DAILY metformin 1,000 mg tablet 1,000 mg PO DAILY omeprazole 20 mg capsule,delayed release(DR/EC) 20 mg PO DAILY furosemide 20 mg tablet 20 mg PO DAILY Patient Comments: TAKE 1 TABLET BY MOUTH ONCE DAILY FOR FLUID duloxetine 60 mg capsule,delayed release(DR/EC) 60 mg PO DAILY Patient Comments: TAKE 1 CAPSULE BY MOUTH ONCE DAILY fenofibrate nanocrystallized 145 mg tablet 145 mg PO DAILY Patient Comments: TAKE 1 TABLET BY MOUTH ONCE DAILY Jardiance 25 mg tablet 25 mg PO DAILY minocycline 100 mg capsule 100 mg PO BID Qty: 20 0RF Referrals Follow up/Referrals: Provider,Referral, [Referring] - See instructions Clinical Impressions Clinical Impression: Acute paronychia of finger, Cellulitis of finger Discharge ED Provider: Chana Garza General Adult HPI General Chief complaint: PAIN Stated complaint: left middle finger swollen red Time Seen by Provider: 10/12/23 12:01 Mode of Arrival: Ambulatory Source of Information: Patient Limitations: No Limitations Description of Symptoms (Recalled from ER Triage Doc. by RN): pt presents to ED c/o left 3rd finger pain and swelling. pt states the pain and swelling started on Monday. pt reports coming to the [facility] on Monday and that he was started on unknown antibiotic. pt denies any fever. pt reports hx of dm. History of Present Illness HPI narrative: 58-year-old presented today with left finger infection. States this happened about 1 to 2 weeks ago went to urgent treatment clinic was started on minocycline does not have any improvement in symptoms. This is located on the dorsal aspect of the distal phalanx of the third digit of the left hand. No fevers or chills. He is diabetic. Related Data Home Medications Medication Instructions Recorded Confirmed pen needle, diabetic 31 gauge x #1,200 ea 03/21/23 10/08/2307/14 (BD Ultra-Fine Mini Pen Needle) bisoprolol fumarate 10 mg tablet 10 mg PO DAILY 10/08/23 10/08/23 duloxetine 60 mg capsule,delayed 60 mg PO DAILY 10/08/23 10/08/23 release empagliflozin 25 mg tablet 25 mg PO DAILY 10/08/23 10/08/23 (Jardiance) fenofibrate nanocrystallized 145 145 mg PO DAILY 10/08/23 10/08/23 mg tablet furosemide 20 mg tablet 20 mg PO DAILY 10/08/23 10/08/23 gabapentin 800 mg tablet 800 mg PO DAILY 10/08/23 10/08/23 lisinopril 20 mg tablet 20 mg PO DAILY 10/08/23 10/08/23 metformin 1,000 mg tablet 1,000 mg PO DAILY 10/08/23 10/08/23 methocarbamol 750 mg tablet 750 mg PO DAILY 10/08/23 10/08/23 omeprazole 20 mg capsule,delayed 20 mg PO DAILY 10/08/23 10/08/23 release Previous Rx's Medication Instructions Recorded minocycline 100 mg capsule 100 mg PO BID #20 caps 10/08/23 sulfamethoxazole 800 1 tab PO BID 10 days #20 tabs 10/12/23 mg-trimethoprim 160 mg tablet (Bactrim DS) Allergies Allergy/AdvReac Type Severity Reaction Status Date / Time Penicillins [PENICILLINS] Allergy Intermediate I-HIVES Verified 06/13/23 14:41 [facility] Disclaimer: The information contained in this section may have been updated after the patient was seen, as this information can be updated by other users. 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) Smoking Status: Never smoker second hand exposure: No alcohol intake: never substance use type: denies use current occupational status: other Travel in the last 8 weeks: None household members: spouse housing: house current occupational exposures/hazards: No caffeine: Yes ROS Obtained: Yes All systems reviewed & no additional complaints except as documented Physical Exam General General appearance: alert Respiratory Respiratory exam: Present normal lung sounds bilaterally Cardiovascular Cardiovascular exam: Present regular rate Extremities Exam Extremities exam: Present other (Dorsal aspect of distal phalanx there is evidence of a paronychia with surrounding cellulitis finger is not fusiform not diffusely swollen no pain or tenderness or fixed flexed position etc.) Neurological Exam Neurological exam: Present alert and oriented X3 Medical Decision Making Yunior Inquiry Pt receiving controlled substance: No Vital Signs: 10/12/23 09:56 Temperature 98.4 F Temperature Source Oral Pulse Rate [Right Radial] 76 Respiratory Rate 18 Blood Pressure [Right Arm] 143/76 H Blood Pressure Mean [Right Arm] 98 Blood Pressure Source [Right Arm] Automatic Cuff Blood Pressure Position [Right Arm] Sitting 02 Sat by Pulse Oximetry 100 Oxygen Delivery Method Room Air Lab Data Lab results reviewed: Yes I reviewed the patient's lab results. Lab Results 10/12/23 10:18: WBC 5.7, RBC 4.53 L, Hgb 12.6 L, Hct 39.2 L, MCV 86.4, MCH 27.8, MCHC 32.1, RDW 15.4, Plt Count 257, MPV 8.6, Neut % (Auto) 68.9, Lymph % (Auto) 20.8, [place] % (Auto) 6.0, Eos % (Auto) 3.6, Baso % (Auto) 0.7, Neut # (Auto) 3.9, Lymph # (Auto) 1.2, [place] # (Auto) 0.3, Eos # (Auto) 0.2, Baso # (Auto) 0.0, ESR 28 H, Sodium 137, Potassium 4.5, Chloride 103, Carbon Dioxide 25, Anion Gap 13.5, BUN 29 H, Creatinine 1.20, Estimated Creat Clear 86, Estimated GFR 62, Est GFR ( Amer) 76, Glucose 257 H, Calcium 9.7, Total Bilirubin 0.3, AST 35, ALT 31, Alkaline Phosphatase 83, C-Reactive Protein 69.3 H, Total Protein 7.4, Albumin 3.9, Globulin 3.5 H, Albumin/Globulin Ratio 1.1 10/12/23 10:18 10/12/23 10:18 Orders (Tests/Meds): ED MEDICATIONS Discontinued Medications Generic Name Dose Route Start Last Admin Trade Name Freq PRN Reason Stop Dose Admin Trimethoprim/Sulfamethoxazole 1 each 10/12/23 12:24 10/12/23 12:28 Sulfa/Trimethoprim 1 Tablet PO 10/12/23 12:25 1 each ONCE ONE Administration ORDERS Category Date Time Status XR hand LT min 3V Stat Exams 10/12/23 10:06 Completed C-Reactive Protein Stat Lab 10/12/23 10:18 Completed Complete Blood Count Auto Diff Stat Lab 10/12/23 10:18 Completed Comprehensive Metabolic Panel Stat Lab 10/12/23 10:18 Completed Erythrocyte Sedimentation Rate Stat Lab 10/12/23 10:18 Completed Medical Decision Narrative: 58-year-old with paronychia and surrounding cellulitis digital block was performed paronychia drained he was initiated on Bactrim advised to stop taking his minocycline and to continue his Bactrim return precautions emphasized he was discharged in stable condition. Procedures Abscess I/D Site: hand Side (if applicable): left Local Anesthetic: lidocaine 1% and with epi Amount of anesthesia used (mL): 10 (Digital) Technique: incised with #11 blade (Digital block) Amount of fluid expressed (mL): 2 Packing used?: none Complications: pain Critical Care Critical Care Time Critical Care Time: No
[2023-10-12] MEDS: SULFA/TRIMETHOPRIM 1 TABLET 1 EACH PO (12:28)
[2023-10-12 12:39] VITALS: BP 124/79; PULSE 76; RESP 18; TEMP 36.9; O2SAT 100
== END 2023-10-12 12:40 | disposition home or self-care (01) ==
PROVIDERS: Emergency Provider Student in an Organized Health Care Education/Training Program; PCP Internal Medicine Adolescent Medicine
DX: L03.012 Cellulitis of left finger (principal); E11.65 Type 2 diabetes mellitus with hyperglycemia; K21.9 Gastro-esophageal reflux disease without esophagitis; E78.5 Hyperlipidemia, unspecified; I11.9 Hypertensive heart disease without heart failure; I25.119 Atherosclerotic heart disease of native coronary artery with unspecified angina pectoris; Z95.5 Presence of coronary angioplasty implant and graft; Z79.84 Long term (current) use of oral hypoglycemic drugs
CPT/HCPCS: 73130; 80053; 85025; 85651; 86140; 99283

== ENCOUNTER 2023-11-21 07:26 | Outpatient (CLI) | payer MEDICARE, SELFPAY ==
--- NOTE | 2023-11-21 07:27 | NM_ITS ---
APPROVED REPORT Exam: Nuclear Stress Test Indication: Chest pain, SOB, Syncope, HTN, DM, High cholesterol, Family history, CAD Patient Location: Outpatient Stress Tech: Polly Oneal DC Tech:Khalida Machado, ARRT, RT (R)(N) Ht: 5 ft 7 in Wt: 190 lbs HR: 76 bpm BP: 133/76 mmHg BSA: 1.98 m2 Rhythm: NSR TID: 1.17 BMI: 29.7 History: Chest pain, SOB, Syncope, HTN, DM, High cholesterol, Family history, CAD Procedure: Patient received 0.4 mg of intravenous Lexiscan, resting heart rate 76 bpm, resting blood pressure 133/76 mmHg, with Lexiscan maximum heart rate achieved was 93 bpm which is % of the maximum predicted heart rate and blood pressure was 137/77 mmHg. With Lexiscan, patient denied any complaint of chest pain. Cardiac Stress and Resting SPECT Images: Cardiac Stress and Resting SPECT images were obtained using technetium 99m Myoview 31.3 mCi stress and 10.09 mCi at rest. Resting and stress imaging in supine and prone positions demonstrate no evidence of fixed or reversible perfusion defects. Gated imaging demonstrates normal global and regional LV systolic function. LVEF is calculated at 60%. Conclusion: No evidence of fixed or reversible perfusion defects. Gated imaging demonstrates normal global and regional LV systolic function. LVEF is calculated at 60%. Electronically signed by : Alejandra Loera MD 11/21/2023 12:41:40
--- NOTE | 2023-11-21 09:43 | CA_ITS ---
APPROVED REPORT Exam: Pharmacologic Technologist: Polly Oneal Ht: 5 ft 8 in Wt: 191 lbs BSA: 2.00 m2 HR: 76 bpm BP: 133/76 mmHg Rhythm: NSR Indications: Chest pain, dyspnea 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 Medications: Lisinopril,,,,, Metformin,,,,, Gabapentin,,,,, DulOXETINE,,,,, BisOPROLOL Fumarate,,,,, JaRDiance,,,,, MiNOCYCLINE,,,,, Furosemide,,,,, DOxycycline HYCLATE,,,,, EMeprazole,,,,, Stress Test Details Test: LEXISCAN HR Resting HR: 76 bpm Max Heart Rate (APMHR): 163 bpm Max HR Achieved: 93 bpm Target HR (85% APMHR): 139 bpm % of APMHR: 57 Recovery HR: 83 bpm BP Resting BP: 133.0/76.0 mmHg Max BP: 137.0/77.0 mmHg Recovery BP: 137.0/77.0 mmHg ECG Resting ECG: Sinus rhythm, non-specific T-wave changes Stress ECG: No significant ST changes Arrhythmia: None Clinical Exercise duration: 04:00 min Highest Stage Achieved: Exercise capacity: 1.0 METs Stress ECG Conclusion Symptoms: Dyspnea, weakness, chest pressure Arrhythmias/Ectopy: None ST-T Changes: No significant ST changes Conclusion: EKG portion unremarkable due to Lexiscan infusion. Myoview images reported separately. Test Summary REST . . . . . . . Resting REST 02:54 . . 76 . 133/ 76 . . Stage 1 . . . . . . . Myoview Injected Stage 1 01:00 . . 89 . . . . Stage 2 01:00 . . 91 . 117/ 72 . . Stage 3 . . . . . . . Shortness of Breath , weak Stage 3 01:00 . . 90 . 125/ 74 . . Stage 4 01:00 . . 87 . 133/ 76 . Stop exercise at 04:00 RECOVERY 01:00 . . 87 . 125/ 78 . . RECOVERY 02:00 . . 85 . 129/ 74 . . RECOVERY 02:55 . . 83 . 137/ 77 . . Electronically signed by : Alejandra Loera MD 11/21/2023 12:36:29
== END 2023-11-21 23:59 | disposition home or self-care (01) ==
LOC: RAD 07:27
PROVIDERS: PCP Physician Assistant; Visit Provider Physician Assistant
DX: R07.89 Other chest pain (principal); R06.02 Shortness of breath; I25.10 Atherosclerotic heart disease of native coronary artery without angina pectoris
CPT/HCPCS: 78452; 93017; 93018; A9502; J2785

== ENCOUNTER 2023-12-22 08:19 | Outpatient (POV) | payer MEDICARE, SELFPAY ==
[2023-12-22 08:34] VITALS: BP 122/77; PULSE 76; RESP 16; O2SAT 100; BMI 30.5
--- NOTE | 2023-12-22 16:04 | EXP.PAIN.SOA ---
[facility] Disclaimer: The information contained in this section may have been updated after the patient was seen, as this information can be updated by other users. 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 History of COVID-19 History of gastroesophageal reflux (GERD) T2DM (type 2 diabetes mellitus) Coronary artery disease Unstable angina Diastolic dysfunction Gastroesophageal reflux disease HLD (hyperlipidemia) HTN (hypertension) Surgical History History of surgery Hx of heart artery stent X3 History of back surgery PAIN STIMULATOR Hx of colonoscopy Family History Other Coronary artery disease Heart attack Social History Smoking Status: Never smoker second hand exposure: No alcohol intake: never substance use type: denies use current occupational status: other Travel in the last 8 weeks: None household members: spouse housing: house current occupational exposures/hazards: No caffeine: Yes PM Subjective & Objective Subjective Subjective:: This patient is a pleasant 58-year-old white male who we are treating for low back pain with lumbar radicular symptoms. He is also managed with gabapentin 800 mg 3 times a day, methocarbamol 750 mg at bedtime and tramadol 50 mg twice a day. Yunior and drug screen are all appropriate. He does have a spinal cord stimulator. He does need reprogramming from the physician relations representative today. Pain at rest (0-10 scale): 77 Objective Objective:: Alert and oriented x 3 no acute distress. Patient does have antalgic gait. Motor strength of lower extremities is 5/5. There is no gross sensory deficit. Has patient had previous pain injection?: No Conservative treatment options previously tried: NSAIDS Length of treatment: Unknown and Home exercise plan Length of treatment: Unknown Meds Home Medications and Allergies Home Medications ?Medication ?Instructions ?Recorded ?Confirmed ?Type pen needle, diabetic 31 gauge x #1,200 ea 03/21/23 12/22/23 History 3/16 (BD Ultra-Fine Mini Pen Needle) bisoprolol fumarate 10 mg tablet 10 mg PO DAILY 10/08/23 12/22/23 History duloxetine 60 mg capsule,delayed 60 mg PO DAILY 10/08/23 12/22/23 History release empagliflozin 25 mg tablet 25 mg PO DAILY 10/08/23 12/22/23 History (Jardiance) fenofibrate nanocrystallized 145 145 mg PO DAILY 10/08/23 12/22/23 History mg tablet furosemide 20 mg tablet 20 mg PO DAILY 10/08/23 12/22/23 History gabapentin 800 mg tablet 800 mg PO DAILY 10/08/23 12/22/23 History lisinopril 20 mg tablet 20 mg PO DAILY 10/08/23 12/22/23 History metformin 1,000 mg tablet 1,000 mg PO DAILY 10/08/23 12/22/23 History minocycline 100 mg capsule 100 mg PO BID #20 caps 10/08/23 12/22/23 Rx omeprazole 20 mg capsule,delayed 20 mg PO DAILY 10/08/23 12/22/23 History release mupirocin 2 % topical ointment 1 applic topical BID infection 14 10/31/23 12/22/23 Rx days #15 grams doxycycline hyclate 100 mg tablet 100 mg PO BID 11/09/23 12/22/23 History methocarbamol 750 mg tablet 750 mg PO DAILY PRN no 11/09/23 12/22/23 History nitroglycerin 0.4 mg sublingual 0.4 mg sublingual Q5M PRN chest 11/09/23 12/22/23 Rx tablet (Nitrostat) pain #20 tabs atorvastatin 40 mg tablet 40 mg PO DIRECTED 12/04/23 12/22/23 History tirzepatide 7.5 mg/0.5 mL 7.5 mg SQ DIRECTED 12/04/23 12/22/23 History subcutaneous pen injector (Mounjaro) New Prescriptions to Start Prescriptions: Allergies Allergy/AdvReac Type Severity Reaction Status Date / Time Penicillins [PENICILLINS] Allergy Intermediate I-HIVES Verified 12/04/23 10:15 Assessment and Plan *Assessment and plan (1) Postlaminectomy syndrome: Status: Chronic Category: Medical Code(s): M96.1 - Postlaminectomy syndrome, not elsewhere classified (2) Lumbar radiculopathy: Status: Chronic Category: Medical Code(s): M54.16 - Radiculopathy, lumbar region Plan Patient had reprogramming of his spinal cord stimulator. He did very well with this. We will refill his gabapentin 800 mg 3 times a day. Yunior and elie screen are all appropriate.
== END 2023-12-22 23:59 | disposition home or self-care (01) ==
PROVIDERS: Visit Provider Anesthesiology
DX: M96.1 Postlaminectomy syndrome, not elsewhere classified (principal); M54.16 Radiculopathy, lumbar region; Z95.5 Presence of coronary angioplasty implant and graft; Z96.82 Presence of neurostimulator; Z79.899 Other long term (current) drug therapy
CPT/HCPCS: 99212; G0463

== ENCOUNTER 2024-05-10 09:19 | Outpatient (POV) | payer MEDICARE, SELFPAY ==
[2024-05-10 09:39] VITALS: BP 118/69; PULSE 88; RESP 16; O2SAT 100; BMI 29.2
--- NOTE | 2024-05-10 10:11 | A.OFFVIS_ITS ---
[facility] Disclaimer: The information contained in this section may have been updated after the patient was seen, as this information can be updated by other users. 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 History of COVID-19 History of gastroesophageal reflux (GERD) T2DM (type 2 diabetes mellitus) Coronary artery disease Unstable angina Diastolic dysfunction Gastroesophageal reflux disease HLD (hyperlipidemia) HTN (hypertension) Surgical History History of surgery Hx of heart artery stent X3 History of back surgery PAIN STIMULATOR Hx of colonoscopy Family History Other Coronary artery disease Heart attack Social History Smoking Status: Never smoker second hand exposure: No alcohol intake: never substance use type: denies use current occupational status: other Travel in the last 8 weeks: None household members: spouse housing: house current occupational exposures/hazards: No caffeine: Yes PM Subjective & Objective Subjective Subjective:: Patient is a pleasant 59-year-old male who presents today for medication refill and follow-up. Today he rates his pain a 4 out of 10. He does state since our last appointment that he has undergone a hip replacement and then ended up having to have a finger partially amputated along the left side due to having a cyst that burst and became infected. Patient states that this has been going on for some time and he is actually still on antibiotics for the finger. He states that is just now really healed over. Patient states he is on monocyte clean currently. Patient does also make mention that his spinal cord stimulator is not doing as well on coverage due to it being either fractured or out of place. He does state that [employer] is aware. Patient does state that he is open to options about having this replaced or fixed. Patient is currently managed with gabapentin 800 mg 3 times a day, methocarbamol 750 mg at bedtime and tramadol 50 mg twice a day. He denies any side effects from this medication. He does state because he was unable to get into our office sooner that his primary care did send in a 1 month supply of the gabapentin. His Yunior has been reviewed and is appropriate. Review of Systems: General: No recent weight changes, no fever, no sleep disturbances Respiratory: No cough, no shortness of air, no recurring pulmonary infections Cardiovascular/peripheral vascular: No chest pain, no palpitations, no edema, no shortness of breath Gastrointestinal: No new onset incontinence, normal bowel movements reported Genitourinary: No new onset incontinence Musculoskeletal: Low back pain Psychiatric: [Normal mood/affect] Neurological: [Denies weakness in extremities], [denies balance issues] Pain at rest (0-10 scale): 4 Objective Objective:: Physical Exam: General: Alert and oriented x3, no acute distress, pleasant and cooperative Lungs: Respirations even and unlabored, symmetrical chest expansion Eyes: PERRL Musculoskeletal: Flexion and extension of lumbar [spine] somewhat guarded sec ondary to pain, [antalgic gait noted] Neurological: Speech clear, no gross sensory deficit Has patient had previous pain injection?: No Conservative treatment options previously tried: Home exercise plan Length of treatment: Longer than 12 weeks Meds Home Medications and Allergies Home Medications ?Medication ?Instructions ?Recorded ?Confirmed ?Type pen needle, diabetic 31 gauge x #1,200 ea 03/21/23 05/10/24 History 3/16 (BD Ultra-Fine Mini Pen Needle) duloxetine 60 mg capsule,delayed 60 mg PO DAILY 10/08/23 05/10/24 History release empagliflozin 25 mg tablet 25 mg PO DAILY 10/08/23 05/10/24 History (Jardiance) fenofibrate nanocrystallized 145 145 mg PO DAILY 10/08/23 05/10/24 History mg tablet metformin 1,000 mg tablet 1,000 mg PO DAILY 10/08/23 05/10/24 History minocycline 100 mg capsule 100 mg PO BID #20 caps 10/08/23 05/10/24 Rx omeprazole 20 mg capsule,delayed 20 mg PO DAILY 10/08/23 05/10/24 History release methocarbamol 750 mg tablet 750 mg PO DAILY PRN no 11/09/23 05/10/24 History nitroglycerin 0.4 mg sublingual 0.4 mg sublingual Q5M PRN chest 11/09/23 05/10/24 Rx tablet (Nitrostat) pain #20 tabs atorvastatin 40 mg tablet 40 mg PO DIRECTED 12/04/23 05/10/24 History tirzepatide 7.5 mg/0.5 mL 7.5 mg SQ DIRECTED 12/04/23 05/10/24 History subcutaneous pen injector (Mounjaro) gabapentin 800 mg tablet 800 mg PO TID #90 tabs 12/22/23 05/10/24 Rx (Neurontin) bisoprolol fumarate 10 mg tablet 10 mg PO DAILY #90 tabs 12/27/23 05/10/24 Rx furosemide 20 mg tablet See Rx Instructions .Route 12/28/23 05/10/24 Rx .COMPLEX #30 tabs lisinopril 20 mg tablet 20 mg PO DAILY #90 tabs 03/20/24 05/10/24 Rx New Prescriptions to Start Prescriptions: Allergies Allergy/AdvReac Type Severity Reaction Status Date / Time Penicillins (PENICILLINS) Allergy Intermediate I-HIVES Verified 04/02/24 09:31 Assessment and Plan *Assessment and plan (1) Lumbar radiculopathy: Status: Chronic Category: Medical Code(s): M54.16 - Radiculopathy, lumbar region (2) Lumbar radicular pain: Status: Acute Category: Medical Code(s): M54.16 - Radiculopathy, lumbar region Plan I will refill the patient's gabapentin, methocarbamol and tramadol and provide a 3-month supply of this medication. I did discuss with the patient at length regarding replacing his spinal cord stimulator. I did funeral planning counselor him that we would want to make sure that the infection is completely gone before proceeding forward with this option. I did discuss with the patient that I will make sure that [employer] is present for his next follow-up for additional reprogramming. We did discuss that if the lead migration was related to his falls in the past and since this is the second time that they have moved or fractured that it may be something beneficial to look into a paddle lead placement in future. We will follow-up with this at later appointments. Patient will return to clinic in 3 months for reevaluation of symptoms and plan of care. Risks and benefits of the medication have been explained in detail to the patient. The patient does understand the risk of dependence on the medication when given over a prolonged period. Patient has been advised of risks of oversedation with the prescribed medication. Narcan has been offered to the paitent in the event of oversedation. Patient has been advised that a family member should also be educated regarding administration of Narcan. The patient has been advised to consult with his/her primary care provider and pharmacist regarding drug-drug interaction of medications currently prescribed. Patient has been prescribed a controlled substance after being counseled on the medication, medication safety, and possible side effects. Opioid contract was reviewed and signed by the patient, and that they have agreed to all of the terms set forth by our compliance program. A UDS is needed to verify patient's compliance with our office pain contract. This is ordered based off specific treatments related to chronic pain with the potential to abuse certain medications. Patient has been instructed to contact the clinic with any concerns before the next appointment. Dr. Galarza has reviewed this note and agrees with this plan of care. This note was dictated using voice recognition software and make contain errors or omissions.
== END 2024-05-10 23:59 | disposition home or self-care (01) ==
PROVIDERS: PCP Internal Medicine Adolescent Medicine; Visit Provider Nurse Practitioner Family
DX: M54.16 Radiculopathy, lumbar region (principal); Z95.5 Presence of coronary angioplasty implant and graft; Z79.899 Other long term (current) drug therapy; Z96.649 Presence of unspecified artificial hip joint
CPT/HCPCS: 99212; G0463

== ENCOUNTER 2024-08-08 09:26 | Outpatient (POV) | payer MEDICARE, SELFPAY ==
[2024-08-08 09:37] VITALS: BP 132/75; PULSE 66; RESP 18; O2SAT 100; BMI 31.3
--- NOTE | 2024-08-08 10:24 | EXP.PAIN.SOA ---
[facility] Disclaimer: The information contained in this section may have been updated after the patient was seen, as this information can be updated by other users. 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 (Updated 08/08/24 @ 10:28 by Randi Lorenzo APRN) Amputation finger History of COVID-19 History of gastroesophageal reflux (GERD) T2DM (type 2 diabetes mellitus) Coronary artery disease Unstable angina Diastolic dysfunction Gastroesophageal reflux disease HLD (hyperlipidemia) HTN (hypertension) Surgical History History of surgery Hx of heart artery stent History of back surgery Hx of colonoscopy Family History Other Coronary artery disease Heart attack Social History Smoking Status: Never smoker second hand exposure: No alcohol intake: never substance use type: denies use current occupational status: other Travel in the last 8 weeks: None household members: spouse housing: house current occupational exposures/hazards: No caffeine: Yes Have you lived/traveled outside US in past 30 days?: No Contact w/someone who lives/traveled outside US past 30 days?: No Exposure to someone with infectious disease in past 14 days?: No Do you have a fever (greater than 100.4 F or 38 C)?: No Have you tested positive for COVID-19: No Exposed to someone with COVID-19 in past 14 days?: No Do you have a sore throat?: No Do you have a cough?: No Do you have any weakness?: No Do you have any diarrhea?: No Are you experiencing any unusual bleeding?: No Do you have any muscle aches/pain?: No Do you have any abdominal pain?: No Are you experiencing loss of taste or smell?: No PM Subjective & Objective Subjective Subjective:: Patient is a pleasant 59-year-old male who presents today for follow-up, medication refill and [employer] reprogramming of his spinal cord stimulator. Today he rates his pain a 3 out of 10. He denies any new injury or trauma. He does state that he has not done as much today but the pain will get worse with increased activity. He does state that his stimulator is still working at least partially but does state that the coverage is not they are like what it used to be. He states that what he can feel does feel like it still has some coverage however he also states that he did lose his associate financial representative. Patient is currently managed with gabapentin 800 mg 3 times a day, methocarbamol 750 mg at bedtime, tramadol 50 mg twice a day and duloxetine 60 mg daily. He denies any side effects and is requesting refills. His Yunior has been reviewed and is appropriate. Review of Systems: General: No recent weight changes, no fever, no sleep disturbances Respiratory: No cough, no shortness of air, no recurring pulmonary infections Cardiovascular/peripheral vascular: No chest pain, no palpitations, no edema, no shortness of breath Gastrointestinal: No new onset incontinence, normal bowel movements reported Genitourinary: No new onset incontinence Musculoskeletal: Right hip pain, low back pain, leg pain Psychiatric: [Normal mood/affect] Neurological: [Denies weakness in extremities], [denies balance issues] Pain at rest (0-10 scale): 5 Objective Objective:: Physical Exam: General: Alert and oriented x3, no acute distress, pleasant and cooperative Lungs: Respirations even and unlabored, symmetrical chest expansion Eyes: PERRL Musculoskeletal: Flexion and extension of lumbar [spine] somewhat guarded secondary to pain, [antalgic gait noted] Neurological: Speech clear, no gross sensory deficit Has patient had previous pain injection?: No Conservative treatment options previously tried: Home exercise plan Length of treatment: Longer than 12 weeks Meds Home Medications and Allergies Home Medications ?Medication ?Instructions ?Recorded ?Confirmed ?Type pen needle, diabetic 31 gauge x #1,200 ea 03/21/23 08/08/24 History 3/ (BD Ultra-Fine Mini Pen Needle) duloxetine 60 mg capsule,delayed 60 mg PO DAILY 10/08/23 08/08/24 History release empagliflozin 25 mg tablet 25 mg PO DAILY 10/08/23 08/08/24 History (Jardiance) fenofibrate nanocrystallized 145 145 mg PO DAILY 10/08/23 08/08/24 History mg tablet metformin 1,000 mg tablet 1,000 mg PO DAILY 10/08/23 08/08/24 History minocycline 100 mg capsule 100 mg PO BID #20 caps 10/08/23 08/08/24 Rx omeprazole 20 mg capsule,delayed 20 mg PO DAILY 10/08/23 08/08/24 History release nitroglycerin 0.4 mg sublingual 0.4 mg sublingual Q5M PRN chest 11/09/23 08/08/24 Rx tablet (Nitrostat) pain #20 tabs atorvastatin 40 mg tablet 40 mg PO DIRECTED 12/04/23 08/08/24 History tirzepatide 7.5 mg/0.5 mL 7.5 mg SQ DIRECTED 12/04/23 08/08/24 History subcutaneous pen injector (Mounjaro) lisinopril 20 mg tablet 20 mg PO DAILY #90 tabs 03/20/24 08/08/24 Rx gabapentin 800 mg tablet 800 mg PO TID #90 tabs 05/10/24 08/08/24 Rx (Neurontin) methocarbamol 750 mg tablet 750 mg PO DAILY PRN no #30 tabs 05/10/24 08/08/24 Rx tramadol 50 mg tablet 50 mg PO BID PRN pain #60 tabs 05/10/24 08/08/24 Rx aspirin 81 mg tablet,delayed 81 mg PO DAILY 06/05/24 08/08/24 History release (Adult Low Dose Aspirin) bisoprolol fumarate 10 mg tablet See Rx Instructions .Route 06/24/24 08/08/24 Rx .COMPLEX #90 tabs furosemide 20 mg tablet 20 mg PO DAILY #30 tabs 08/06/24 08/08/24 Rx New Prescriptions to Start Prescriptions: Allergies Allergy/AdvReac Type Severity Reaction Status Date / Time Penicillins (PENICILLINS) Allergy Intermediate I-HIVES Verified 06/05/24 10:13 Assessment and Plan *Assessment and plan (1) Lumbar radiculopathy: Status: Chronic Category: Medical Code(s): M54.16 - Radiculopathy, lumbar region (2) Lumbar radicular pain: Status: Acute Category: Medical Code(s): M54.16 - Radiculopathy, lumbar region (3) Hip pain, left: Status: Acute Category: Medical Code(s): M25.552 - Pain in left hip (4) Chronic pain syndrome: Status: Acute Category: Medical Code(s): G89.4 - Chronic pain syndrome (5) Postlaminectomy syndrome: Status: Chronic Category: Medical Code(s): M96.1 - Postlaminectomy syndrome, not elsewhere classified Plan [employer] was present and did try and reprogram his stimulator however it is the fact that he has 2 contacts that are out and the right unable to be reprogrammed. Patient was counseled due to the lost connection that he may benefit from replacement of the system. Risk and benefits were discussed with the patient and he does state he would like to proceed forward. Patient states that he notices a big difference between when the device was fully functioning versus the current stimulation. Patient will be submitted for spinal cord stimulator generator and lead replacement/revision due to the leads being out of contact. I will refill the patient's tramadol, methocarbamol, gabapentin and duloxetine. Patient is meeting with [employer] business process representative for a loaner associate financial representative this coming Monday. I did discuss with the patient that Dr. Galarza will be here for surgery and that if he would like to discuss additional revision options at that time we can do that as well. He agrees with this plan of care. Patient has continued conservative therapy including oral medications, heat and ice, topicals, at home stretching exercise for longer than 12 weeks that was physician guided. Patient has had previous back surgery and right hip replacement with still chronic pain throughout these areas. Risks and benefits of the medication have been explained in detail to the patient. The patient does understand the risk of dependence on the medication when given over a prolonged period. Patient has been advised of risks of oversedation with the prescribed medication. Narcan has been offered to the paitent in the event of oversedation. Patient has been advised that a family member should also be educated regarding administration of Narcan. The patient has been advised to consult with his/her primary care provider and pharmacist regarding drug-drug interaction of medications currently prescribed. Patient has been prescribed a controlled substance after being counseled on the medication, medication safety, and possible side effects. Opioid contract was reviewed and signed by the patient, and that they have agreed to all of the terms set forth by our compliance program. A UDS is needed to verify patient's compliance with our office pain contract. This is ordered based off specific treatments related to chronic pain with the potential to abuse certain medications. Patient has been instructed to contact the clinic with any concerns before the next appointment. Dr. Galarza has reviewed this note and agrees with this plan of care. This note was dictated using voice recognition software and make contain errors or omissions.
--- OUTSIDE RECORDS SUMMARY | 2024-08-08 23:08 | XMS_ITS | Continuity of Care Document ---
Author Organization [facility] Phone Care Team Providers Care Manager Paper Name Role Phone TAWNY NGUYEN Primary Care PARIS [facility]GH Primary Attending PARIS [facility]GH Admitting [facility] Unavailable TREATMENT PLAN DISCHARGE MEDICATIONS Status RXNORM Medication Dose Route Frequency Dates Comments U pdated By Patient discharge medication information is not available. PATIENT OPEN ORDERS Code System Description Frequency Occurrences Priority [place] [id number] [facility] Hip - left X-ray 2 views ONE TIME 0 Routine July 05, 2024 12:41:0 0 PM [facility] KEATON Huston MD [id number] on July 05, 2024 12:51:00 PM [facility] SCHEDULED PROCEDURES Code System Description Status Scheduled Date Upd ated By Patient scheduled procedure information is not available. MEDICATIONS HOME MEDICATIONS Status RXNORM NDC Medication Dose Route Frequency Dates Comments Reported By Updated By Drug Treatment Unknown DISCHARGE MEDICATIONS Status RXNORM NDC Medication Dose Route Frequency Dates Comments Physician Updated By No Discharge Medication Info rmation Available INPATIENT MEDICATIONS Status RXNORM NDC Medication Dose Route Frequency Rat e Quantity Dates Comments Physician Updated By No Inpatient Medication Info rmation Available SOCIAL HISTORY SOCIAL HISTORY SNOMED-CT Social History Element Description Effective Dates Offered Cessation Comment UpdatedBy [id number] Smoking Status Unknown If Ever Smoked SOCIAL HISTORY - Gender Sex: Male SOCIAL HISTORY - Status : status i nformation is not available Intention in Next Year: intention information is not available SOCIAL HISTORY - Sexual Behavior Sexual Orientation Gender Identity SNOMED-CT Description SNO MED -CT Description Activity Level No of Partners Partner Type UpdatedBy Information is not available HEALTH CONCERNS Problems Concern Status Health Concern problem infor mation not available. Smoking Status Status Years Used Consumed packs p er day Health Concern smoking histo ry information not available. Family History Concern Status Health Concern family histor y information not available. ENCOUNTERS ENCOUNTER INFORMATION Reason for Visit X-RAYS Admission July 05, 2024 12:31:00 PM [facility] [address] [address] Discharge July 05, 2024 4:31:00 PM [facility] DIS CHARGED TO HOME OR SELF CARE ENCOUNTER DIAGNOSES Notes information is not cristhian ilable. Code System Diagnosis Onset Date Diagnosis information is not available. ABSTRACT DIAGNOSES Code System Diagnosis Updated By M25.552 ICD10 PAIN IN LEFT HIP [id number] on July 09, 2024 6:38:59 AM [place] M25.552 ICD10 PAIN IN LEFT HIP [id number] on July 09, 2024 6:38:59 AM [facility] CARE TEAM Care Manager Paper Role TAWNY NGUYEN Primary Care [facility] Primary Attending [facility] Admitting [facility] Referring CARE TEAM CARE service parts coordinator Role on Team Status Start Date End Date Update d By PATRICK MILLIGAN PCP normal July 05, 2024 12:33:09 PM [facility] July 05, 2024 4:31:00 PM UTC [id number] on July 05, 2024 12:33:09 PM [facility] KEATON Huston MD Referring normal July 05 12:33:09 PM [facility] July 05, 2024 4:31:00 PM UTC [id number] on July 05, 2024 12:33:09 PM [facility] KEATON Huston MD Attending normal July 05 12:33:09 PM [facility] July 05, 2024 4:31:00 PM UTC [id number] on July 05, 2024 12:33:09 PM [facility] KEATON Huston MD Admitting normal July 05 12:33:09 PM [facility] July 05, 2024 4:31:00 PM UTC [id number] on July 05, 2024 12:33:09 PM [facility]
--- OUTSIDE RECORDS SUMMARY | 2024-08-08 23:08 | XMS_ITS | Data Portability ---
Author Organization [facility] & MICHAEL Fuller ADMIN Address [address] [place] [address] Care Team Providers Care Recruiting Administrator Name Role Phone JESUS GREGG Referring Provider Assessment Encounter Date Assessment Date Assessment LastModified by Organization Details LastModified Time 01/25/2024 01/25/2024 Axel is in today for a comprehensive hearing evaluation due to concerns about bilateral tinnitus. 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 Type A tympanograms bilaterally indicating normal middle ear pressure and compliance bilaterally. Audiogram completed today with good reliability indicates a moderate high frequency sensorineural hearing loss bilaterally. He is continuing his care with Dr. Hankins. [email or web address] Not available 01/25/2024 13:07:13 01/25/2024 01/25/2024 Audiogram: 01/25/24 Audiogram was personally reviewed with the patient demonstrating the following: Normal downsloping to moderate SNHL. Type A tympanograms bilaterally. WRS 92% on the right and 96% on the left at 60 dB. Not available 01/25/2024 11:38:09 Plan of Treatment Reminders Order Date Submit Date Provider Last Modified By Organization Details Last Modified Time Details Appointments None record ed. Lab None record ed. Referral None record ed. Procedures None record ed. Surgeries None record ed. Imaging None record ed. Medication Orders None record ed. Patient TargetsNo targets recorded. Patient InstructionsNo instructions recorded. Reason for Referral None Reported. Problems Name Problem SNOMED Code Status Onset Date Resolution Date Notes Provider Name and Address Organization Details Recorded Time Sensorineur al hearing loss of bilateral ears [id number] Active 2023 ALISON HANKINS MD [address] [place] [address], [address], [place], [address] [place], [place] [id number] [facility] & [place] 4 11:37:11 Bilateral tinnitus [id number] Active 2023 ALISON HANKINS MD [address] [place] [address], [address], [place], [address] [facility] [place] [facility] & [place] 4 11:38:17 Problem Notes None recorded. Medical Equipment None Reported. Allergies No known drug allergies Medications Name Sig Start Date Stop Date Status Note LastModified by Organization Details LastModified Time atorvastati n 40 mg tablet active Not Available Not Available Not Available clindamycin HCl 300 mg capsule TAKE 1 CAPSULE BY MOUTH THREE TIMES DAILY FOR 7 DAYS 01/24 completed Not Available Not Available Not Available minocycline 100 mg capsule TAKE 1 CAPSULE BY MOUTH TWICE DAILY active Not Available Not Available No t Available lisinopril 20 mg tablet TAKE 1 TABLET BY MOUTH ONCE DAILY FOR HIGH BLOOD PRESSURE active Not Available Not Available No t Available ondansetron HCl 4 mg tablet active Not Available Not Available Not Available sulfamethox azole 800 mg-trimetho prim 160 mg tablet TAKE 1 TABLET BY MOUTH TWICE DAILY FOR 7 DAYS 01/24 completed Not Available Not Available Not Available tramadol 50 mg tablet TAKE 1 TABLET BY MOUTH TWICE DAILY NEEDED FOR PAIN active Not Available Not Available No t Available bisoprolol fumarate 10 mg tablet TAKE 1 TABLET BY MOUTH ONCE DAILY active Not Available Not Available No t Available oxycodone-a cetaminophe n 5 mg-325 mg tablet TAKE 1 TABLET BY MOUTH EVERY 4 HOURS NEEDED FOR MODERATE PAIN SCALE 4-6 01/24 completed Not Available Not Available Not Available methocarbam ol 750 mg tablet TAKE 1 TABLET BY MOUTH AT BEDTIME active Not Available Not Available No t Available gabapentin 800 mg tablet TAKE 1 TABLET BY MOUTH THREE TIMES DAILY active Not Available Not Available No t Available cephalexin 500 mg capsule TAKE 2 CAPSULES BY MOUTH 4 TIMES DAILY 01/24 completed Not Available Not Available Not Available metformin 1,000 mg tablet TAKE 1 TABLET BY MOUTH ONCE DAILY WITH BREAKFAST active Not Available Not Available No t Available nitroglycer in 0.4 mg sublingual tablet DISSOLVE ONE TABLET UNDER THE TONGUE EVERY 5 MINUTES NEEDED FOR CHEST PAIN. DO NOT EXCEED A TOTAL OF 3 DOSES IN 15 MINUTES PER EPISODE active Not Available Not Available No t Available omeprazole 20 mg capsule,del ayed release active Not Available Not Available Not Available mupirocin 2 % topical ointment APPLY OINTMENT TOPICALLY TWICE DAILY FOR INFECTION FOR 14 DAYS active Not Available Not Available No t Available furosemide 20 mg tablet TAKE 1 TABLET BY MOUTH ONCE DAILY FOR FLUID active Not Available Not Available No t Available ondansetron 4 mg disintegrat ing tablet DISSOLVE 1 TABLET IN MOUTH EVERY 8 HOURS NEEDED FOR NAUSEA AND VOMITING 01/24 completed Not Available Not Available Not Available doxycycline hyclate 100 mg tablet TAKE 1 TABLET BY MOUTH TWICE DAILY 01/24 completed Not Available Not Available Not Available oxycodone 5 mg tablet TAKE 1 TABLET BY MOUTH EVERY 6 HOURS NEEDED FOR SEVERE PAIN active Not Available Not Available No t Available duloxetine 60 mg capsule,del ayed release TAKE 1 CAPSULE BY MOUTH ONCE DAILY active Not Available Not Available No t Available fenofibrate nanocrystal lized 145 mg tablet TAKE 1 TABLET BY MOUTH ONCE DAILY active Not Available Not Available No t Available Tradjenta 5 mg tablet TAKE 1 TABLET BY MOUTH ONCE DAILY 01/24 completed Not Available Not Available Not Available Xarelto 10 mg tablet active Not Available Not Available No t Available Jardiance 10 mg tablet TAKE 1 TABLET BY MOUTH ONCE DAILY . APPOINTME NT REQUIRED FOR FUTURE REFILLS active Not Available Not Available No t Available Jardiance 25 mg tablet TAKE 1 TABLET BY MOUTH ONCE DAILY IN THE MORNING active Not Available Not Available No t Available Repatha SureClick 140 mg/mL subcutaneou s pen injector INJECT 140MG SUBCUTANE OUSLY ONCE EVERY 2 WEEKS active Not Available Not Available No t Available FreeStyle Leonel 2 Sensor kit USE DIRECTED, CHANGE EVERY 14 DAYS active Not Available Not Available No t Available Mounjaro 7.5 mg/0.5 mL subcutaneou s pen injector active Not Available Not Available Not Available Clenpiq 10 mg-3.5 gram-12 gram/175 mL oral solution TAKE 175 ML BY MOUTH DAILY FOR 2 DOSES. TAKE FIRST AT 5-9 PM THE EVENING BEFORE COLONOSCO PY. TAKE SECOND DOSE THE NEXT DAY APPROXIMA TELY 5 HOURS BEFORE COLONOSCO PY 01/24 completed Not Available Not Available Not Available Vitals Date Recorded Body height Body weight Body temperature Oxygen saturation Oxygen saturation in Arterial blood by Pulse oximetry Provider Name and Address Organization Details Last Updated DateTime 4 170.18 cm 76121.7 1 g 97.2 [degF] 96 % 96 % [employer] [facility] & [place] 09:38:39 Social History Question Answer Notes LastModified by Organizat ion Details LastModified Time Tobacco Smoking Status Never Smoker Sowmya flood, [facility] & [place] 01/23/2024 09:16:25 What Is Your Level Of Alcohol Consumption? None Information not available 01/23/2024 Do You Use Any Illicit Or Recreational Drugs? No Information not available 01/23/2024 Has Tobacco Cessation Counseling Been Provided? No Information not available 01/23/2024 Do You Or Have You Ever Used Any Other Forms Of Tobacco Or Nicotine? No Information not available 01/23/2024 Sex: Unknown Functional Status None recorded. Mental Status None recorded. Family History Relationship Description Onset Age of this Age Resolved Age Notes LastModified by Organization Details LastModified Time Father No current problems or disability Not available 01/22 09:16:20 Mother No current problems or disability Not available 01/22 09:16:20 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 Condition Response Allergies/Hayfever N Heart Problems N None N Heart Conditions N Emphysema N Migraines N Thyroid Problems N Developmental Delay N Glaucoma N Depression N Anemia N Immune System Disorder N Anesthesia Complications N Heart Attack (SC) N Anxiety Disorder N Diabetes N Bleeding Disorder N Arthritis N Hearing Loss N Tuberculosis N Acid Reflux (GERD) N Hyperlipidemia N Cancer N Stroke N Asthma N Sleep Disorder N GERD/Reflux N Heart Disease N Headaches N Fibromyalgia N Hypertension N Speech Delay N Kidney Disease N Past Encounters Encounter ID Performer Location Encounter Start Date Encounter Closed Date Diagnosis/Indication Diagnosis SNOMED-CT Code Diagnosis ICD10 Code Diagnosis Note [id number] ALISON HANKINS MD [facility] [address] [address] 01/25/2024 09:32:33 01/25/2024 10:17:51 Sensorineural hearing loss of bilateral ears [id number] H90.3 - Audiogram was reviewed and explained to the patient - Causes of sensorineu ral hearing loss were discussed with the patient - The treatment options include observatio n vs hearing aids. - Cleared for hearing aids evaluation - Hearing protection measures were discussed. - Recommend follow-up audiogram in 1 year. Bilateral tinnitus 01413 56197 102 H93.13 - The patient's audiogram was reviewed. - Tinnitus is likely largely driven by the patients hearing loss - Treatment options for tinnitus were discussed, including lifestyle modificati ons (reduce stress, reduce caffeine, avoid pain medication s), masking devices (sound machine, fan, - mobile apps), medical therapy (bioflavon oid, niacin), biofeedbac k therapy, hearing aids. [id number] DULCE HARVEY [facility] [address] [place] [address] 01/25/2024 09:32:54 01/25/2024 10:18:58 Sensorineural hearing loss of bilateral ears 098586251 H90.3 Bilateral tinnitus 71722 37947 102 H93.13 Health Concerns Section Related Observation LastModified by Organization Detai ls LastModified Time None Recorded Concern Status LastModified by Organization Details LastModified Time None Recorded Advance Directives Directive None Recorded Payers Encounter Date Sequence Insurance Name Policy Number Policy Franklin Covered Member ID Franklin Member ID Guarantor Name 01/25/2024 1 [employer] (MEDICARE REPLACEMENT/A DVANTAGE - HMO) Axel A Farr [id number] Axel Farr 01/25/2024 1 [employer] (MEDICARE REPLACEMENT/A DVANTAGE - HMO) Axel A Farr [id number] Axel Farr Notes Date Note Type Note Provider Name and Address Organization Details Recorded Time 01/25/2024 text/html Patient presents to clinic for evaluation and management of hearing loss. He does not feel like he has significant issues with his hearing but notes that his says he does. He feels hearing is the same bilaterally. Does endorse bilateral tinnitus. He is able to talk on the phone in both ears. No history of otologic surgery. 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 ALISON HANKINS MD [address] [place] [address], [address], [place], [address], [facility] - [place] & [place] 01/25/2024 11:38:43
== END 2024-08-08 23:59 | disposition home or self-care (01) ==
PROVIDERS: PCP Internal Medicine Adolescent Medicine; Visit Provider Nurse Practitioner Family
DX: M54.16 Radiculopathy, lumbar region (principal); M25.552 Pain in left hip; G89.4 Chronic pain syndrome; M96.1 Postlaminectomy syndrome, not elsewhere classified
CPT/HCPCS: 99212; G0463

== ENCOUNTER 2024-10-01 10:50 | Outpatient (CLI) | payer MEDICARE, SELFPAY ==
--- OUTSIDE RECORDS SUMMARY | 2024-10-01 10:53 | XMS_ITS | Data Portability ---
Author Organization [facility] & MICHAEL Fuller ADMIN Address [address] [place] [address] Care Team Providers Care Retail Sales Specialist Name Role Phone JESUS GREGG Referring Provider [...] 96% on the left at 60 dB. [email or web address] Not available 01/25/2024 11:38:09 Plan of Treatment [...] Sensorineur al hearing loss of bilateral ears [id number] Active 2023 ALISON HANKINS MD [address] [place] [address], [address], [place], [address] [place], [place] [id number] [facility] & [place] 4 11:37:11 Bilateral tinnitus [id number] Active 2023 ALISON HANKINS MD [address] [place] [address], [address], [place], [address] [facility] [place] - [facility] & [place] 4 11:38:17 Problem Notes None recorded. Medical [...] Details Last Updated DateTime 4 170.18 cm 11645.7 1 g 97.2 [degF] 96 % 96 % [place] Fish [facility] & [place] 09:38:39 Social History Question Answer Notes LastModified by Organizat ion Details LastModified Time Tobacco Smoking Status Never Smoker Sowmya flood, [facility] & [place] 01/23/2024 09:16:25 Has Tobacco Cessation Counseling Been Provided? No Information not available 01/23/2024 Sex: Unknown Functional Status Question Answer Note LastModified by Organizat ion Details LastModified Time Do you use any illicit or recreational drugs? No Information not available 01/23/2024 Do you or have you ever used any other forms of tobacco or nicotine? No Information not available 01/23/2024 What is your level of alcohol consumption? None Information not available 01/23/2024 Mental Status None recorded. Family History Relationship Description Onset Age of this Age Resolved Age Notes LastModified by Organization Details LastModified Time Father No current problems or disability Not available 01/22 09:16:20 Mother No current problems or disability Not available 01/22 09:16:20 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 Condition Response Allergies/Hayfever N Heart Problems N None N Heart Conditions N Emphysema N Migraines N Thyroid Problems N Glaucoma N Depression N Developmental Delay N Anemia N Immune System Disorder N Anesthesia Complications N Heart Attack (OR) N Anxiety Disorder N Diabetes N Bleeding Disorder N Arthritis N Hearing Loss N Tuberculosis N Acid Reflux (GERD) N Hyperlipidemia N Cancer N Stroke N Asthma N Sleep Disorder N GERD/Reflux N Heart Disease N Fibromyalgia N Headaches N Hypertension N Speech Delay N Kidney Disease N Past Encounters Encounter ID Performer Location Encounter Start Date Encounter Closed Date Diagnosis/Indication Diagnosis SNOMED-CT Code Diagnosis ICD10 Code Diagnosis Note [id number] ALISON HANKINS MD [facility] [address] [facility] [place] [address] 01/25/2024 09:32:33 01/25/2024 10:17:51 Sensorineural hearing loss of bilateral ears 303274323 H90.3 - Audiogram was reviewed and explained to the patient - Causes of sensorineu ral hearing loss were discussed with the patient - The treatment options include observatio n vs hearing aids. - Cleared for hearing aids evaluation - Hearing protection measures were discussed. - Recommend follow-up audiogram in 1 year. Bilateral tinnitus 43100 23230 102 H93.13 - The patient's audiogram was reviewed. - Tinnitus is likely largely driven by the patients hearing loss - Treatment options for tinnitus were discussed, including lifestyle modificati ons (reduce stress, reduce caffeine, avoid pain medication s), masking devices (sound machine, fan, - mobile apps), medical therapy (bioflavon oid, niacin), biofeedbac k therapy, hearing aids. [id number] DULCE HARVEY [facility] [address] [place] [address] 01/25/2024 09:32:54 01/25/2024 10:18:58 Sensorineural hearing loss of bilateral ears [id number] H90.3 Bilateral tinnitus 66010 67762 102 H93.13 Health Concerns Section Related Observation LastModified by Organization Detai ls LastModified Time None Recorded Concern Status LastModified by Organization Details LastModified Time None Recorded Advance Directives Directive None Recorded Payers Insurance Date Sequence Insurance Name Policy Number Policy Franklin Covered Member ID Franklin Member ID Guarantor Name 01/25/2024 1 [facility] [facility] (MEDICAID HMO) Axel Farr [id number] Axel Farr 01/25/2024 1 [place]MEDIC[place]PLAC[place] HMO) [id number] Axel A Farr [id number] Axel Farr 01/25/2024 1 [employer] (MEDICARE REPLACEMENT/AD VANTAGE - HMO) Axel A Farr [id number] Axel Farr Notes Date Note Type Note [...] working around 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 ALISON HANKINS MD [address] [place] [address], [address], [place], [address], JODI - CHANTELLENT - [place] & [place] 01/25/2024 11:38:43
[2024-10-01 11:30] VITALS: BMI 31.3
[2024-10-01 12:10] LABS: Basophils # 0.1 K/mm3 (0-0.2); Eosinophils # 0.2 Kmm3 (0.0-0.4); Eosinophils % 3.6 % (0.1-12.0); Hemoglobin 12.5 g/dL (14.1-18.0); Immature Granulocytes # 0.01 10^3uL; Immature Granulocytes % 0.2 %; Lymphocytes # 1.3 K/mm3 (0.7-4.5); Lymphocytes % 26.6 % (10-50); Mean Corpuscular HGB Conc 32.9 g/dL (31.8-35.4); Mean Corpuscular Hemoglobin 28.8 pg (27.0-31.2); Mean Corpuscular Volume 87.6 fl (80-94); Mean Platelet Volume 10.4 fl (7.4-10.4); Monocytes # 0.5 K/mm3 (0.1-1.0); Monocytes % 9.9 % (1.7-9.3); Neutrophils # 2.9 K/mm3 (1.8-7.8); Neutrophils % 58.7 % (37.0-80.0); Nucleated Red Blood Cells # 0 10^3/uL; Nucleated Red Blood Cells % 0 %; Platelet Count 244 K/mm3 (142-424); Red Blood Count 4.34 M/mm3 (4.60-6.20); Red Cell Distribution Width 12.9 % (11.5-17.5); Red Cell Distribution Width-SD 41.4 fL
[2024-10-01 12:34] LABS: Anion Gap 11.9 mEq/L (5-15); Blood Urea Nitrogen 32 mg/dl (9-20); Calcium 9.4 mg/dl (8.4-10.2); Carbon Dioxide 27 mmol/L (22.0-30.0); Chloride 104 mmol/L (98-107); Creatinine Clearance Estimated 74 mL/min (50-200); Estimated Glomerular Filt Rate 52 ml/min (>60); GFR (African American) 63 ML/MIN (>60); Glucose 303 mg/dl (74-100); Potassium 4.9 mmoL/L (3.5-5.1); Sodium 138 mmol/L (136-145)
[2024-10-01 13:39] LABS: Hemoglobin A1C 13.3 % (4.0-6.0)
--- NOTE | 2024-10-02 10:29 | PC.NURSE ---
Addendum entered by Shawnee Ribera RN 10/02/24 10:39: SPOKE WITH PT VIA PHONE, PT NOTIFIED THAT PER DR. SHELDON SURGERY WOULD NEED TO BE CANCELLED R/T POOR CONTROL OF DIABETES AND RISK OF INFECTION. PT VERBALIZED UNDERSTANDING. VERIFIED WITH PT THAT HE DOES HAVE A PCP, PT STATES YES I WILL NEED TO MAKE AN APPT TO SEE THEM. SCHEDULED PT AN OFFICE F/U FOR NOVEMBER- RECHECK LABS AT THAT APPT AND PT CAN DISCUSS RESCHEDULING SURGERY. PT AGREEABLE TO TO THIS POC. Original Note: NOTIFIED DR. SHELDON OF PT LAB RESULTS; GLUCOSE AND HEMAGLOBIN A1C. STATES PT WILL NEED BETTER CONTROL OF HIS DIABETES PRIOR TO DOING REPLACEMENT OF HIS STIMULATOR.
== END 2024-10-01 23:59 | disposition home or self-care (01) ==
LOC: PREOP 10:51
PROVIDERS: PCP Internal Medicine Adolescent Medicine; Visit Provider Anesthesiology
DX: Z01.812 Encounter for preprocedural laboratory examination (principal)
CPT/HCPCS: 80048; 83036; 85025

== ENCOUNTER 2024-12-09 09:48 | Outpatient (POV) | payer MEDICARE, SELFPAY ==
--- OUTSIDE RECORDS SUMMARY | 2024-12-09 10:01 | XMS_ITS | Encounter Summary ---
Author Organization [employer] ([place], [place], [place], [place]) Address [address] [place] [address] Care Team Providers Care Cut In Station Operator Name Role Phone Malaika Gordon APRN Primary Care Provider [phone] Christine Pisano APRN Primary Care Provider [phone] Reason for Visit * Reason Onset Date Comments Medication Refill 11/17/2023 Encounter Details Date Type Department Care Team (Late st Contact Info) Description 11/17/2023 Refill [facility] Primary Care [address] [address] Malaika Gordon APRN [address] [place] [address] Social History Tobacco Use Types Packs/Day Years Used Date Smoking Tobacco: Never Smokeless Tobacco: Never Alcohol Use Standard Drinks/Week Comments Never 0 (1 standard drink = 0.6 oz pur e alcohol) Food Insecurity Answer Date Recorded Food run out past 12 months Not on file 06/01 Food did not last past 12 months Not on file 06/15/2023 Employment Answer Date Recorded Help finding and keeping a job Not on file 0 06/15/2023 Family and Community Support Answer Jayro e Recorded Help with Day to Day Activities Not on file 06/15/2023 Feeling Lonely or Isolated Not on file 06/15 Educational Attainment Answer Date Koffi rded Speak language other than Persian at home Not on file 06/15/2023 Want help with school or training Not on file 06/15/2023 Substance Use Answer Date Recorded Used prescription meds for non-medical reasons N ot on file 06/15/2023 Used illegal drugs past 12 months Not on file 06/15/2023 Sex and Gender Information Value Date Recorded Sex Assigned at Not on file Legal Sex Male 5:58 PM CDT Gender Identity Not on file Sexual Orientation Not on file documented as of this encounter Plan of Treatment Not on file documented as of this encounter Visit Diagnoses Not on filedocumented in this encounter Care Teams Cut In Station Operator Relationship Specialty Start Date End Date Malaika Gordon APRN [address] [place] [address] PCP - General Family Medicine 08/09/23 02/28/24 Christine Pisano, CAITLYN [address] [place] [address] PCP - General Nurse Practitioner 02/29/24 documented as of this encounter
--- OUTSIDE RECORDS SUMMARY | 2024-12-09 10:01 | XMS_ITS | Clinical Summary ---
Author Organization [employer] ([place], [place], [place], [place]) Address [address] [place] [address] Care Team Providers Care Director Of Dementia Operations Name Role Phone Christine Pisano CAITLYN Primary Care Provider [phone] Allergies Active Allergy Reactions Criticality Noted Date Comments Penicillins Hives,Other (See Comments) High 12/07/19 18 Medications bisoprolol (ZEBETA) 10 MG tablet Take 1 tablet (10 mg total) by mouth daily. 05/13/19 24 Active DULoxetine (CYMBALTA) 60 MG capsule Take 1 capsule (60 mg total) by mouth daily. 05/18/19 24 Active Repatha SureClick 140 mg/mL PnIj SMARTSI Milligram(s) SUB-Q Every 2 Weeks 05/08/19 24 Active fenofibrate (TRICOR) 145 MG tablet Take 1 tablet (145 mg total) by mouth daily. 05/12/19 24 Active gabapentin (NEURONTIN) 800 MG tablet Take 1 tablet (800 mg total) by mouth 3 (three) times daily. 05/31/19 24 Active insulin lispro (HumaLOG) 100 unit/mL InPn Inject 15-20 units before meals plus Correction Factor 1:20 >150 MDD 100 units 07/28/19 23 Active lisinopriL (PRINIVIL,ZESTRIL) 20 MG tablet Take 1 tablet (20 mg total) by mouth daily. 06/11/19 24 Active Clenpiq 10 mg-3.5 gram- 12 gram/175 mL Soln Take by mouth. 04/15/20 23 Active omeprazole (PriLOSEC) 20 MG capsule Take 1 capsule (20 mg total) by mouth daily. 07/06/19 24 Active FreeStyle Leonel 2 Sensor KitIndications:Typ e 2 diabetes mellitus with hyperglycemia, with long-term current use of insulin ([facility]) Place 1 Application onto the skin every 14 (fourteen) days. 3 kit 6 10/09/19 24 Active cholecalciferol, vitamin D3, (Vitamin D3) 2,000 unit tabIndications:Vit robles D deficiency Take 1 tablet (2,000 Units total) by mouth daily. 90 tablet 11/10/19 24 Active methocarbamoL (ROBAXIN) 750 MG tabletIndications: Muscle cramps Take 1 tablet (750 mg total) by mouth every night as needed. 30 tablet 1 11/10/19 24 Active atorvastatin (LIPITOR) 40 MG tabletIndications: Hyperlipidemia, unspecified hyperlipidemia type Take 1 tablet (40 mg total) by mouth daily. 90 tablet 11/20/19 24 Active tirzepatide (Mounjaro) 7.5 mg/0.5 mL PnIjIndications:Ty pe 2 diabetes mellitus with hyperglycemia, with long-term current use of insulin ([facility]) Inject 7.5 mg subcutaneously every 7 days. 2 mL 2 11/23/19 24 Active blood-glucose sensor (DEXCOM G7) DeviIndications:Ty pe 2 diabetes mellitus with hyperglycemia, with long-term current use of insulin ([facility]) Change sensor every 10 days. 3 each 3 11/23/19 24 Active blood-glucose meter,continuous (DEXCOM G7) MiscIndications:Ty pe 2 diabetes mellitus with hyperglycemia, with long-term current use of insulin ([facility]) Check blood glucose daily. 1 each 11/23/19 24 Active empagliflozin (JARDIANCE) 25 mg tabletIndications: Type 2 diabetes mellitus with hyperglycemia, with long-term current use of insulin ([facility]) Take 1 tablet (25 mg total) by mouth daily. 90 tablet 1 11/23/19 24 Active furosemide (LASIX) 20 MG tabletIndications: Swelling Take 1 tablet (20 mg total) by mouth daily. 20 tablet 12/28/19 24 Active metFORMIN (GLUCOPHAGE) 1000 MG tablet Take 1 tablet (1,000 mg total) by mouth every morning. 30 tablet 07/04/19 25 Active insulin glargine (Lantus Solostar U-100 Insulin) 100 unit/mL (3 mL) inpnIndications:Ty pe 2 diabetes mellitus with hyperglycemia, with long-term current use of insulin ([facility]) Inject 75 Units under the skin every morning. 75 mL 08/28/19 25 Active Active Problems Problem Noted Date Diagnosed Date HTN (hypertension) 08/09/2023 08/09/2023 Tear of right supraspinatus tendon 07/10/2023 Tear of right infraspinatus tendon, initial enco unter 07/10/2023 Partial tear of right subsca pularis tendon, initial encounter 07/10/2023 Injury of right acromioclavicular joint, initial encounter 07/10/2023 Aftercare following joint replacement surgery 08/09/2023 Presence of left artificial hip joint 07/03/2023 08/09/2023 Diabetes mellitus 06/15/2023 06/15/2023 Angina concurrent with and d ue to arteriosclerosis of coronary artery 04/08/2022 06/15/2023 Chronic pain 04/08/2022 06/15/2023 Diabetic renal disease 04/08/2022 Essential hypertension 04/08/2022 Hyperlipidemia 04/08/2022 06/15/2023 Neuralgia 04/08/2022 06/15/2023 Neuropathy 04/08/2022 06/15/2023 Obesity (BMI 30-39.9) 04/08/2022 06/15/2023 Polyneuropathy due to type 2 diabetes mellitus 1 06/09/2021 06/15/2023 Sciatica 04/08/2022 06/15/2023 Tubular adenoma of colon 04/08/2022 024 Type 2 diabetes mellitus wit h hyperglycemia, with long-term current use of insulin 04/08/2022 06/15/2023 Proteinuria 04/08/2022 08/09/2023 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 05/01/2019 08/09/2023 computer terminal operator (current) use of oral hypoglycemic rosalba gs 05/01/2019 08/09/2023 Lumbar disc herniation with radiculopathy 201706/15/2023 DDD (degenerative disc disease), lumbar 12/09/19 18 06/15/2023 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 12/08/2017 06/15/2023 Numbness of legs 12/08/2017 06/15/2023 Pure hypercholesterolemia, unspecified 0 08/09/2023 Athscl heart disease of myla ve coronary artery w/o ang pctrs 05/01/2009 08/09/2023 Type 2 diabetes mellitus without complications 0 05/01/2009 08/09/2023 Immunizations Name Administration Dates Next Due Influenza (Flublok)_0.5ml Qi v_im_egg & Antibiotic Free Pf ([id number]) 01/20/2022 Influenza Four-qiv Pf 01/20/2023 Tdap 03/13/2023 Social History Tobacco Use Types Packs/Day Years Used Date Smoking Tobacco: Never Smokeless Tobacco: Never Tobacco Cessation:Counseling Given: Not Answered Alcohol Use Standard Drinks/Week Comments Never 0 [...] Date Koffi rded Speak language other than Tajik at home Not on file 06/15/2023 Want [...] on file Sexual Orientation Not on file Last Filed Vital Signs Vital Sign Reading Time Taken Comments Blood Pressure 106/68 11/10/2023 1:21 PM EDT Pulse 70 11/10/2023 1:21 PM EDT Temperature 36.4 C (97.5 F) 08/09/2023 1:16 PM EDT Respiratory Rate - - Oxygen Saturation 98% 11/10/2023 1:21 PM EDT Inhaled Oxygen Concentration - - Weight 87.8 kg (193 lb 9 oz) 11/10/2023 1:21 PM EDT Height 170.2 cm (5' 7 ) 11/10/2023 1:21 PM EDT Body Mass Index 30.32 11/10/2023 1:21 PM EDT Plan of Treatment Health Maintenance Due Date Last Done Comments CT Colonography 1966 Colonoscopy 1966 Colorectal Cancer Screening 1966 Diabetic Kidney Health Evaluation (KED) 1966 FOBT/FIT 1966 Fit-DNA (Cologuard) 1966 Sigmoidoscopy 1966 Diabetic Eye Exam 1976 Depression Screening (12+) 1978 HIV Screening 1981 Hepatitis C Screening 1984 Pneumococcal 50+ years (1 of 2 - PCV) 1985 Shingles Vaccine (Zoster) (1 of 2) 2016 COVID-19 VACCINE (3 - season) 12/31/202308/2021, 11/16/2020 Hemoglobin A1C 02/10/2024 11/10/2023, 08/09/2023 Medicare Initial AWV [id number] 05/02/2024 Tobacco Cessation Counseling and Screening (12+) 11/14/2024 11/15/2023 Influenza Vaccine (#1) 2024 01/20/2022 Lipid Panel 11/09/2026 11/10/2023, 08/09/2023 DTAP/TDAP/TD VACCINES (2 - Td or Tdap) 03/13/2033 Procedures Procedure Name Priority Date/Time Associated Diagnosis Comments LIPID PANEL Routine 11/10/2023 3:19 PM EDT POCT GLYCATED HEMOGLOBIN, TOTAL Routine 11/10/2023 1:48 PM EDT Type 2 diabetes mellitus with hyperglycemia, with long-term current use of insulin (HCC) from Last 3 Months or Most Recently Relevant to Health Maintenance Results * Lipid panel (11/10/2023 3:19 PM EDT) Cholesterol, Total 138 100 - 199 mg/dL [facility] Triglycerides 104 0 - 149 mg/dL [facility] HDL Cholesterol 45 >39 mg/dL [facility] VLDL Cholesterol Palomo 19 5 - 40 mg/dL [facility] LDL Calculated 74 0 - 99 mg/dL [facility] 11/10/2023 3:19 PM EDT 11/10/2023 Narrative [facility] - 11/11/2023 7:07 AM EDT Performed at: 01 - [facility] [id number] Booster Pump Oiler: Cas Simeon PhD, Phone: [phone] Malaika Gordon ERCO MACHINE OPERATOR LAB BLOOD ORDERABLES Final Result [facility] * POCT glycated hemoglobin, total (A1C) (11/10/2023 1:48 PM EDT) [facility] Hemoglobin A1C 14.2 % 11/10/2023 1:48 PM EDT Malaika Gordon ERCO MACHINE OPERATOR POINT OF CARE TEST ORDERAB LES Final Result from Last 3 Months or Most Recently Relevant to Health Maintenance Insurance [employer] MEDICARE PPO Care Teams Director Of Dementia Operations Relationship Specialty Start Date End Date Christine Pisano APRN [address] [place] [address] PCP - General Nurse Practitioner 02/29/24
--- OUTSIDE RECORDS SUMMARY | 2024-12-09 10:01 | XMS_ITS | Clinical Summary ---
Author Organization [facility] Address [address] [place] [address] [address] [place] [address] Phone Care Team Providers Care Manufacturing Advisor Name Role Phone Svitlana Soliz Unavailable Unavailable Conditions or Problems Problem Name Problem Code Onset Date Status Entry Date Provider Comment Standard Description Annotate Long-term (current) use of antibiotics 959500649 (SNOMED CT) 05/07 Active 05/07 Axel Bedoya MD Long-term drug therapy Diarrhea 94036983 (SNOMED CT) 01/03 Active 01/03 Therese Bedoya Diarrhea Staphylococc us aureus infection 796729382 (SNOMED CT) 12/06 Active 12/06 Lois Ace Infection by methicillin sensitive Staphylococcus aureus STAPH AUREUS INFECTION 952675543 (SNOMED CT) 12/06 Inactive 12/06 Axel Bedoya MD Infection caused by Staphylococcus aureus Screening for HIV 238761123 (SNOMED CT) 12/06 Active 12/06 [facility] Procedure carried out on subject Pt does not wish to be Cellulitis, hand, left 41136033 (SNOMED CT) 12/06 Active 12/06 Lois Ace Cellulitis of hand Coronary artery disease (CAD) 85650076 (SNOMED CT) 12/06 Active 12/06 Lois Ace Coronary arteriosclerosi s Infection, local skin/subcuta neous tissue 501166902 (SNOMED CT) 12/06 Active 12/06 Lois Ace Localized infection of skin AND/OR subcutaneous tissue DM II with diabetic polyneuropat hy E11.42 (ICD-10-CM ) 12/06 Active 12/06 Lois Bello Type 2 diabetes mellitus with diabetic polyneuropathy Benign Essential Hypertension 00451168 (SNOMED CT) 12/06 Active 12/06 Lois Bello Benign hypertension Acute osteomyeliti s, left finger (middle) M86.142 (ICD-10-CM ) 12/05 Active 12/05 Ramonita Dumont Other acute osteomyelitis, left hand Medications Medication Instructions Start Date Stop Date Generic Name NDC Provider OXYCODONE HCL 5 MG TABS Take 1 tablet by mouth every six hours as needed 05/30 oxycodone 38369673692 Robert Garcia MINOCYCLINE HCL 100 MG CAPS Take 1 capsule by mouth twice a day minocycline 93668897265 Axel Bedoya MD MINOCYCLINE HCL 100 MG CAPS 1 capsule by mouth twice a day 05/07 minocycline 40468809837 Therese Bedoya MINOCYCLINE HCL 100 MG CAPS Take 1 capsule by mouth twice a day 06/05 minocycline 32020937290 Therese Bedoya MUPIROCIN 2 % OINT Apply 1 a small amount to affected area twice a day mupirocin 53449687114 Therese Bedoya MINOCYCLINE HCL 100 MG CAPS 1 capsule by mouth twice a day 05/07 minocycline 79293714733 Axel Bedoya MD MINOCYCLINE HCL 100 MG CAPS Take 1 capsule by mouth twice a day minocycline 57566711325 Axel Bedoya MD MINOCYCLINE HCL 100 MG CAPS Take 1 capsule by mouth twice a day 0 minocycline 78517665590 Therese Bedoya CEPHALEXIN 500 MG CAPS Take 1 capsule by mouth four times a day 12/27 cephalexin 89402716760 Cathie Khan ceftriaxone recon soln 2gm IV Q 24hrs INPAT 12/13 ceftriaxone recon soln Jennifer Moreno CEPHALEXIN 500 MG CAPS Take 2 capsule by mouth four times a day 12/27 cephalexin 23369315401 Axel Bedoya MD SULFAMETHOXAZOLE- TRIMETHOPRIM 800-160 MG TABS Take 1 tablet by mouth twice a day 12/11 sulfamethoxazole- trimethoprim 36328596616 Sidney Pineda DULOXETINE HCL 60 MG CPEP Take 1 capsule by mouth once a day duloxetine 52915512359 Sidney Pineda FUROSEMIDE 20 MG TABS Take 1 tablet by mouth once a day furosemide 64346439106 Sidney Pineda BISOPROLOL FUMARATE 10 MG TABS Take 22 mg by mouth once a day bisoprolol fumarate 81501954774 Sidney Pineda FENOFIBRATE 145 MG TABS Take 1 tablet by mouth once a day fenofibrate nanocrystallized 56116484298 Sidney Pineda LANTUS SOLOSTAR 100 UNIT/ML SOPN Inject 75 unit subcutaneously once a day as directed insulin glargine 27504779703 Sidney Pineda CLINDAMYCIN HCL 300 MG CAPS Take 1 capsule by mouth three times a day 12/11 clindamycin hcl 20053588961 Sidney Pineda MOUNJARO 7.5 MG/0.5ML SOAJ Inject 0.5 ml subcutaneously as directed tirzepatide 80736258439 Sidney Pineda INSULIN LISPRO 100 UNIT/ML SOLN Inject subcutaneously three times a day as directed insulin lispro 17316115264 Sidney Pineda OMEPRAZOLE 20 MG CPDR Take 1 capsule by mouth once a day omeprazole 10533753209 Sidney Pineda METFORMIN HCL 1000 MG TABS Take 1 tablet by mouth once a day metformin 65251963748 Sidney Pineda LISINOPRIL 20 MG TABS Take 1 tablet by mouth once a day lisinopril 69315924694 Sidney Pineda Cholecalciferol 50 MCG (1999) tablet Take 1 tablet by mouth once a day 1999 Sidney Pineda empagliflozin (JARDIANCE) 25 MG tablet tablet Take 1 tablet by mouth once a day JARDIANCE Sidney Pineda METHOCARBAMOL 750 MG TABS Take 1 tablet by mouth methocarbamol 87333661727 Sidney Pineda OXYCODONE HCL 5 MG TABS Take 1 tablet by mouth every six hours as needed 05/30 oxycodone 83564573501 Sidney Pineda ATORVASTATIN CALCIUM 40 MG TABS 1 tablet atorvastatin 97575253648 Sidney Pineda TRAMADOL HCL 50 MG TABS 1 tablet by mouth as needed tramadol 01076234954 Sidney Pineda ASPIRIN LOW DOSE 81 MG TBEC Take 1 tablet by mouth once a day aspirin 26226932584 Sidney Pineda Cubicin RF (daptomycin) recon soln 700mg IV Q4hrs INPAT 12/07 daptomycin Jennifer Bartow ceftriaxone recon soln 2gm IV Q 24hrs INPAT 12/13 ceftriaxone recon soln Jennifer Bartow Cubicin RF (daptomycin) recon soln 700mg IV Q4hrs INPAT 12/07 daptomycin Cathie Khan TRAMADOL HCL 50 MG TABS 1 tablet NEEDED (route: oral) 12/11 tramadol 51172963636 QIE qieuser SULFAMETHOXAZOLE- TRIMETHOPRIM 800-160 MG TABS Take 1 tablet by mouth 2 (Two) Times a Day for 7 days. 12/11 sulfamethoxazole- trimethoprim 65025760065 QIE qieuser OXYCODONE HCL 5 MG TABS Take 1 tablet by mouth Every 6 (Six) Hours As Needed for Severe Pain. 12/11 oxycodone 30900698806 QIE qieuser OMEPRAZOLE 20 MG CPDR Take 1 capsule by mouth Daily. 10/29 omeprazole 38449490370 QIE qieuser NITROGLYCERIN 0.4 MG SUBL DISSOLVE ONE TABLET UNDER THE TONGUE EVERY 5 MINUTES NEEDED FOR CHEST PAIN. DO NOT EXCEED A TOTAL OF 3 DOSES IN 15 MINUTES PER EPISODE nitroglycerin 62275608617 QIE q[facility]user MOUNJARO 7.5 MG/0.5ML SOAJ Inject 0.5 mL under the skin into the appropriate area as directed. 06/06 tirzepatide 67058643703 QIE qieuser METHOCARBAMOL 750 MG TABS Take 1 tablet by mouth. 12/11 methocarbamol 17096527007 QIE qieuser METFORMIN HCL 1000 MG TABS Take 1 tablet by mouth Daily. 12/11 metformin 91955307647 QIE qieuser LISINOPRIL 20 MG TABS Take 1 tablet by mouth Daily. 12/11 lisinopril 28409707830 QIE qieuser INSULIN LISPRO 100 UNIT/ML SOLN Inject under the skin into the appropriate area as directed 3 (Three) Times a Day Before Meals. 12/11 insulin lispro 69454570315 QIE qieuser LANTUS SOLOSTAR 100 UNIT/ML SOPN Inject 75 Units under the skin into the appropriate area as directed Daily. 12/11 insulin glargine 66028533307 QIE qieuser GABAPENTIN 800 MG TABS gabapentin 42746825722 QIE qieuser FUROSEMIDE 20 MG TABS TAKE 1 TABLET BY MOUTH ONCE DAILY FOR FLUID 12/11 furosemide 72773852476 QIE qieuser FENOFIBRATE 145 MG TABS Take 1 tablet by mouth Daily. 12/11 fenofibrate nanocrystallized 92587063559 QIE qieuser empagliflozin (JARDIANCE) 25 MG tablet tablet Take 1 tablet by mouth Daily. 12/11 JARDIANCE QIE qieuser DULOXETINE HCL 60 MG CPEP Take 1 capsule by mouth Daily. 12/11 duloxetine 13919118932 QIE qieuser CLINDAMYCIN HCL 300 MG CAPS Take 1 capsule by mouth 3 (Three) Times a Day for 7 days. 12/11 clindamycin hcl 43648700036 QIE qieuser Cholecalciferol 50 MCG (2000 UT) tablet Take 1 tablet by mouth Daily. 12/11 UT QIE qieuser BISOPROLOL FUMARATE 10 MG TABS Take 22 mg by mouth Daily. for blood pressure 12/11 bisoprolol fumarate 62636611492 QIE qieuser ATORVASTATIN CALCIUM 40 MG TABS 1 tablet. 12/11 atorvastatin 90610772775 QIE qieuser ASPIRIN LOW DOSE 81 MG TBEC Take 1 tablet by mouth Daily. 10/29 aspirin 63870372469 QIE qieuser Medications Administered No information available. Allergies, Adverse Reactions, Alerts Allergy Name Reaction Description Start Date Severity Statu s Provider PENICILLINS Hives Critical Active Jennifer Minor Results Date Name Value Unit Range Flag Description Clinical Lists Update: Prelo ad VAPE_USE Never Tobacco smok ing status Lab Report: CBC WITH AUTO DI FFERENTIAL ZZ-GE-unk 0.0 /100 WBC 0.0-0.2 GE use only - for [employer] import when terms are not otherwise specified IMMATUREGRAN 0.04 10*3/MM3 0.00-0.05 Immature granulocytes [#/volume] in Blood BASO# 0.05 10*3/mm3 0.00-0.20 Basophils [#/volume] in Blood EOS ABSLT 0.55 10*3/uL 0.00-0.40 H Eosinophi ls [#/volume] in Blood MONOSCT AUTO 0.53 10*3/uL 0.10-0.90 Monocy daisy [#/volume] in Blood by Automated count LYMPHCT AUTO 1.83 10*3/mm3 0.70-3.10 Lymph ocytes [#/volume] in Blood by Automated count ABS NEUTROPH 3.72 10*3/uL 1.70-7.00 Neutro phils [#/volume] in Blood IMM GRANU % 0.6 % 0.0-0.5 H Immature granulocytes/100 leukocytes in Blood % EOS AUTO 8.2 % 0.3-6.2 H Eosinophil s/100 leukocytes in Blood by Automated count MONOCYTE % 7.9 % 5.0-12.0 Monocytes /100 leukocytes in Blood by Automated count LYMPHOCY BF 27.2 % 19.6-45.3 lymphoc ytes as percent of body fluid leukocytes NEUTROP BF 55.4 % 42.7-76.0 Neutroph ils/100 leukocytes in Body fluid PLATELETS 345 10*3/mm3 140-450 Platelets [#/volume] in Blood by Automated count RDW_ 15.8 12.3-15.4 H RDW, no uni ts MCHC 31.5 G/DL 31.5-35.7 MCHC [Mass/ volume] by Automated count MCH 27.5 pg 26.6-33.0 MCH [Entiti c mass] by Automated count MCV 87.4 fL 79.0-97.0 MCV [Entiti c volume] by Automated count HCT 39.4 % 37.5-51.0 Hematocrit [Volume Fraction] of Blood by Automated count HGB 12.4 g/dL 13.0-17.7 L Hemoglobin [Mass/volume] in Blood RBC 4.51 10*6/mm3 4.14-5.80 Erythrocyt es [#/volume] in Blood by Automated count WBC 6.72 10*3/mm3 3.40-10.80 Leukocyte s [#/volume] in Blood by Automated count Lab Report: C-REACTIVE PROTE IN CRP <0.30 mg/dL 0.00-0.50 C reactive protein [Mass/volume] in Serum or Plasma Lab Report: CK CPK 89 U/L 20-200 Creatine marguerite se [Enzymatic activity/volume] in Serum or Plasma Lab Report: COMPREHENSIVE ME TABOLIC PANEL ANIONGAP 9.0 mmol/L 5.0-15.0 anion gap, serum BUN/CREAT 19.0 7.0-25.0 Urea nitrogen/Creatinine [Mass Ratio] in Serum or Plasma BILI TOTAL <0.2 mg/dL 0.0-1.2 Bilirubin. total [Mass/volume] in Serum or Plasma ALK PHOS 60 U/L 39-117 Alkaline phosphatase [Enzymatic activity/volume] in Blood SGOT (AST) 25 U/L 1-40 Aspartate aminotransferase [Enzymatic activity/volume] in Serum or Plasma SGPT (ALT) 21 U/L 1-41 Alanine aminotransferase [Enzymatic activity/volume] in Serum or Plasma ALBUMIN 4.1 g/dL 3.5-5.2 Albumin [Mass/volume] in Serum or Plasma PROTEIN, TOT 7.3 g/dL 6.0-8.5 Protein [Mass/volume] in Serum or Plasma CALCIUM 9.6 mg/dL 8.6-10.5 Calcium [Moles/volume] in Serum or Plasma CO2 28.0 mmol/L 22.0-29.0 Carbon diox angela, total [Moles/volume] in Venous blood CHLORIDE 103 mmol/L 98-107 Chloride [Moles/volume] in Serum or Plasma POTASSIUM 4.4 mmol/L 3.5-5.2 Potassium [Moles/volume] in Serum or Plasma SODIUM 140 mmol/L 136-145 Sodium [Moles/volume] in Serum or Plasma CREATININE 1.16 mg/dL 0.76-1.27 Creatini ne [Mass/volume] in Serum or Plasma BUN 22 mg/dL 6-20 H Urea nitrogen [Mass/volume] in Serum or Plasma GLUCOSE SER 216 mg/dL 65-99 H Glucose [Mass/volume] in Serum or Plasma Lab Report: SEDIMENTATION RA TE ESR 18 mm/h 0-20 Erythrocyte sedimentation rate by Westergren method Lab Report: CLOSTRIDIOIDES D IFFICILE TOXIN, PCR C DIFFIC TOX Not Detected Not Detect Clostridioides difficile toxin A+B [Presence] in Stool by Immunoassay Office Visit: Office Visit: rm. 2 MEDS REVIEW Done Documenta tion of current medications (procedure) ORALTOBACUSE Never Tobacco smoking status SMOK STATUS Never smoker Toba tobacco stemmer machine smoking status Plan of Care Type Date Detail Pending order C-Diff PCR Pending order Change IV antibi otics Pending order Weekly labs Procedures Code Procedure Name Date Entry Date Complex E&M visit add-on (G2) G2211 Complex E&M visit add-on (G2) G221 Complex E&M visit add-on (G2) CPT-cdpcr C-Diff PCR CPT-ed Change IV antibiotics 12/07 CPT: weekly Weekly labs Vital Signs Date Name Value Unit Description BMI (Body Mass Index) 29.46 kg/m2 Bod y Mass Index (Ratio) Body Temperature 97.2 [degF] temperat ure E&M BP Diastolic 78 mm[Hg] blood pressu re, diastolic BP Systolic 127 mm[Hg] blood pressur e, systolic Heart Rate 84 /min pulse rate Height 68 [in_us] height E&M Respiratory Rate 16 /min respirat ory rate E&M Weight Measured 193.8 [lb_av] weight E& M Weight Measured 193.8 [lb_av] weight E& M Immunizations No information available. Advance Directives Directive Description Start Date NO ADVANCED DIRECTIVES AT THIS TIME 2023
--- OUTSIDE RECORDS SUMMARY | 2024-12-09 10:01 | XMS_ITS | Encounter Summary ---
Author Organization Healthcare Address [address] [place] [address] Care Team Providers Care Digital Marketing Coordinator Name Role Phone Dayton Reyes MD Primary Care Provider [phone] Reason for Visit * Reason Comments Med Refill Encounter Details Date Type Department Care Team (Late st Contact Info) Description [facility] [address] [place] [address] Sowmya Dorsey PA [address] [address] Type 2 diabetes mellitus with hyperglycemia, with long-term current use of insulin ([facility]) Social History Tobacco Use Types Packs/Day Years Used Date Smoking Tobacco: Never Smokeless Tobacco: Never Alcohol Use Standard Drinks/Week Comments No 0 (1 standard drink = 0.6 oz pur e alcohol) Sex and Gender Information Value Date Recorded Sex Assigned at Not on file Legal Sex Male 8:51 PM EDT Gender Identity Not on file Sexual Orientation Not on file documented as of this encounter Miscellaneous Notes * Telephone Encounter - Jesus Phelps PharmD - 08/03/2023 1:40 PM EDT Refill request does not meet protocol. Sending to clinic for review. Additional info: Pt has not scheduled appt upon request. documented in this encounter Plan of Treatment Not on file documented as of this encounter Visit Diagnoses Diagnosis Type 2 diabetes mellitus with hyperglycemia, with long-term current use of insulin ([facility]) documented in this encounter Additional Health Concerns Assessment Noted Time A fall risk assessment has been complete d for the patient 07/27/2022 12:30 PM EDT A Body Mass Index follow-up plan has been documented for the patient 07/27/2022 1:34 PM EDT documented as of this encounter Care Teams Digital Marketing Coordinator Relationship Specialty Start Date End Date Dayton Reyes MD [address] [place] [id number] PCP - General 09/11/20 documented as of this encounter
--- OUTSIDE RECORDS SUMMARY | 2024-12-09 10:01 | XMS_ITS | Referral Summary ---
Author Organization [employer] ([place], [place], [place], [place]) Address [address] [place] [address] Care Team Providers Care Mid Teacher Name Role Phone Christine Pisano CAITLYN Primary Care Provider Allergies Active Allergy Reactions Criticality Noted Date [...] hyperglycemia, with long-term current use of insulin ([facility]) Place 1 Application onto the skin every [...] hyperglycemia, with long-term current use of insulin ([facility]) Inject 7.5 mg subcutaneously every 7 days. 2 mL 2 11/23/19 24 Active blood-glucose sensor (DEXCOM G7) DeviIndications:Ty pe 2 diabetes mellitus with hyperglycemia, with long-term current use of insulin ([facility]) Change sensor every 10 days. 3 each 3 11/23/19 24 Active blood-glucose meter,continuous (DEXCOM G7) MiscIndications:Ty pe 2 diabetes mellitus with hyperglycemia, with long-term current use of insulin ([facility]) Check blood glucose daily. 1 each 11/23/19 24 Active empagliflozin (JARDIANCE) 25 mg tabletIndications: Type 2 diabetes mellitus with hyperglycemia, with long-term current use of insulin ([facility]) Take 1 tablet (25 mg total) by [...] hyperglycemia, with long-term current use of insulin ([facility]) Inject 75 Units under the skin every [...] of insulin 04/08/2022 06/15/2023 Proteinuria 04/08/2022 08/09/2023 long term care administrator (current) use of insulin 05/01/2019 08/09/2023 long term care administrator (current) use of oral hypoglycemic rosalba gs [...] (Flublok)_0.5ml Qi v_im_egg & Antibiotic Free Pf ([id number]) 01/20/2022 Influenza Four-qiv Pf 01/20/2023 Tdap 03/13/2023 [...] Date Koffi rded Speak language other than Bulgarian at home Not on file 06/15/2023 Want [...] 11/10/2023 1:21 PM EDT Plan of Treatment Not on file Procedures Procedure Name Priority Date/Time Associated Diagnosis [...] - 11/11/2023 7:07 AM EDT Performed at: [facility] [id number] Certified Athletic Trainer: Cas Simeon PhD, Phone: [phone] Malaika Gordon APRN LAB BLOOD ORDERABLES Final Result [facility] * POCT glycated hemoglobin, total (A1C) (11/10/2023 1:48 PM EDT) Hemoglobin A1C 14.2 % 11/10/2023 1:48 PM EDT Malaika Gordon APRN POINT OF CARE TEST ORDERAB LES Final Result from Last 3 Months or Most Recently Relevant to Health Maintenance Insurance [employer] MEDICARE PPO Care Teams Mid Teacher Relationship Specialty Start Date End Date Christine Pisano, CAR BRACER [address] [place] [address] PCP - General Nurse Practitioner 02/29/24
--- OUTSIDE RECORDS SUMMARY | 2024-12-09 10:01 | XMS_ITS | Encounter Summary ---
Author Organization Healthcare Address [address] [place] [address] Care Team Providers Care Fabric Inspector Name Role Phone Dayton Reyes MD Primary Care Provider [phone] Reason for Referral * Consultation (Routine) - Closed Specialty Diagnoses / Procedures Referred By Zakia colón Referred To Contact Endocrinology Diagnoses DM type 2 causing renal disease, not at goal ([facility]/HCC) Eugenia Mirza, WAREHOUSE PERSON [address] [address] Phone: tel: fax: [facility] Endocrinology [address] [place] [address] Phone: tel: fax: Referral ID Status Reason Start Date Expiration Date V isits Requested Visits Authorized [id number] Closed Specialty Services Required 03/15/2022 09/14/2023 1 1 Encounter Details Date Type Department Care Team (Late st Contact Info) Description 03/15/2022 Community Orders [facility] [address] [place] [address] Eugenia Mirza, WAREHOUSE PERSON [address] [address] DM type 2 causing renal disease, not at goal (CMS/HCC) (Primary Dx) Social History Tobacco Use Types Packs/Day Years Used Date Smoking Tobacco: Never Alcohol Use Standard Drinks/Week Comments No 0 (1 standard drink = 0.6 oz pur e alcohol) Sex and Gender Information Value Date Recorded Sex Assigned at Not on file Legal Sex Male 8:51 PM EDT Gender Identity Not on file Sexual Orientation Not on file documented as of this encounter Plan of Treatment Scheduled Referrals Name Type Priority Associated Diagnoses Order Schedule Ambulatory referral to Endocrinology Outpatient Referral Routine DM type 2 causing renal disease, not at goal (CMS/[facility]) Expected: 03/15/2022 (Approximate), Expires: 09/13/2023 documented as of this encounter Visit Diagnoses Diagnosis DM type 2 causing renal disease, not at goal (CMS/[facility])- Primary documented in this encounter Care Teams Fabric Inspector Relationship Specialty Start Date End Date Dayton Reyes MD [address] [place] [address] PCP - General 09/11/20 documented as of this encounter
--- OUTSIDE RECORDS SUMMARY | 2024-12-09 10:01 | XMS_ITS | Encounter Summary ---
Author Organization Healthcare Address [address] [place] [address] Care Team Providers Care Collaborating Supervising Physician Name Role Phone Dayton Reyes MD Primary Care Provider [phone] Reason for Visit * Reason Comments Med Refill Encounter Details Date Type Department Care Team (Late st Contact Info) Description 10/21/2024 Refill [facility] Endocrinology [address] [place] [address] Sowmya Dorsey PA [address] [facility] [address] [place] [address] Type 2 diabetes mellitus with hyperglycemia, with long-term current use of insulin ([facility]) Social History Tobacco Use Types Packs/Day Years [...] encounter Miscellaneous Notes * Telephone Encounter - Hunter Lynn - 10/22/2024 12:02 PM EDT Refill request does not meet protocol. Sending to clinic for review. Additional info: Clarification required: looks like an old dose, unclear which dose pt is taking. documented in this encounter Plan of Treatment Not on file documented as of this encounter Visit Diagnoses Diagnosis Type 2 diabetes mellitus with hyperglycemia, with long-term current use of insulin ([facility]) documented in this encounter Additional Health Concerns Assessment Noted Time A fall risk assessment has been complete d for the patient 07/27/2022 12:30 PM EDT A Body Mass Index follow-up plan has been documented for the patient 07/27/2022 1:34 PM EDT documented as of this encounter Care Teams Collaborating Supervising Physician Relationship Specialty Start Date End Date Dayton Reyes MD [address] [place] [address] PCP - General 09/11/20 documented as of this encounter
--- OUTSIDE RECORDS SUMMARY | 2024-12-09 10:01 | XMS_ITS | Encounter Summary ---
Author Organization [employer] ([place], [place], [place], [place]) Address [address] [place] [address] Care Team Providers Care Process Cheese Cooker Name Role Phone Malaika Gordon APRN Primary Care Provider [phone] Christine Pisano APRN Primary Care Provider [phone] Reason for Visit * Reason Comments Med Change Request Encounter Details Date Type Department Care Team (Late st Contact Info) Description 10/09/2023 [facility] Primary Care [address] [address] Malaika Gordon APRN [address] [place] [address] Type 2 diabetes mellitus with hyperglycemia, with long-term current use of insulin (HCC) Social History Tobacco Use Types Packs/Day Years [...] Date Koffi rded Speak language other than Romanian at home Not on file 06/15/2023 Want [...] with long-term current use of insulin (HCC) documented in this encounter Care Teams Process Cheese Cooker Relationship Specialty Start Date End Date Malaika Gordon, EDITOR DICTIONARY [address] [place] [address] PCP - General Family Medicine 08/09/23 02/28/24 Christine Pisano, EDITOR DICTIONARY [address] [place] [address] PCP - General Nurse Practitioner 02/29/24 documented as of this encounter
--- OUTSIDE RECORDS SUMMARY | 2024-12-09 10:01 | XMS_ITS | Clinical Summary ---
Author Organization [facility] Address [address] [place] [address] Care Team Providers Care Commercial Specialist Name Role Phone Malaika Gordon APRN Primary Care Provider [phone] Allergies Active Allergy Reactions Criticality Noted Date Comments Penicillins Hives,Other (See Com ments),Unknown (See Comments) High 12/06/2017 Medications atorvastatin (LIPITOR) 40 MG tablet 1 tablet. 4 Active Cholecalciferol 50 MCG (1999) tablet Take 1 tablet by mouth Daily. 4 Active DULoxetine (CYMBALTA) 60 MG capsule Take 1 capsule by mouth Daily. 4 Active empagliflozin (JARDIANCE) 25 MG tablet tablet Take 1 tablet by mouth Daily. 4 Active fenofibrate (TRICOR) 145 MG tablet Take 1 tablet by mouth Daily. 4 Active furosemide (LASIX) 20 MG tablet TAKE 1 TABLET BY MOUTH ONCE DAILY FOR FLUID 4 Active gabapentin (NEURONTIN) 800 MG tablet 4 Active lisinopril (PRINIVIL,ZESTR IL) 20 MG tablet Take 1 tablet by mouth Daily. 4 Active metFORMIN (GLUCOPHAGE) 1000 MG tablet Take 1 tablet by mouth Daily. 4 Active methocarbamol (ROBAXIN) 750 MG tablet Take 1 tablet by mouth. 4 Active nitroglycerin (NITROSTAT) 0.4 MG SL tablet DISSOLVE ONE TABLET UNDER THE TONGUE EVERY 5 MINUTES NEEDED FOR CHEST PAIN. DO NOT EXCEED A TOTAL OF 3 DOSES IN 15 MINUTES PER EPISODE 4 Active bisoprolol (ZEBeta) 10 MG tablet Take 22 mg by mouth Daily. for blood pressure 4 Active traMADol (ULTRAM) 50 MG tablet 1 tablet NEEDED (route: oral) 4 Active Insulin Glargine (Lantus SoloStar) 100 UNIT/ML injection pen Inject 75 Units under the skin into the appropriate area as directed Daily. 4 Active Mounjaro 7.5 MG/0.5ML solution pen-injector pen Inject 0.5 mL under the skin into the appropriate area as directed. 4 Active aspirin 81 MG EC tablet Take 1 tablet by mouth Daily. Active omeprazole (priLOSEC) 20 MG capsule Take 1 capsule by mouth Daily. Active Insulin Lispro (humaLOG) 100 UNIT/ML injection Inject under the skin into the appropriate area as directed 3 (Three) Times a Day Before Meals. Active cephalexin (KEFLEX) 500 MG capsule Taking 1 capsules by mouth QID due to GI intolerance 4 Active Active Problems Problem Noted Date Diagnosed Date Osteomyelitis of finger of right hand 12/05/2023 Osteomyelitis of finger 12/04/2023 Family History 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 Relation Name Comments Diabetes Father Isael Farr Heart attack Father Isael Farr Hypertension Father Isael Farr Hypertension Mother Relation Name Status Comments Father Isael Farr Mother Social History Tobacco Use Types Packs/Day Years Used Date Smoking Tobacco: Never Smokeless Tobacco: Never Alcohol Use Standard Drinks/Week Comments Not Currently 0 (1 standard drink = 0.6 oz pur e alcohol) [facility] Utilities Answer Date Recorded In the past 12 months has [employer], [employer], oil, or water [employer] threatened to shut off services in your home? No 12/06/2023 AUDIT-C Answer Date Recorded Q1: How often do you have a drink containing alcohol? Never 12/06/2023 Q2: How many drinks containi ng alcohol do you have on a typical day when you are drinking? Patient does not drink Q3: How often do you have si x or more drinks on one occasion? Never 12/06/2023 Overall Financial Resource Strain (CARDIA) Answe r Date Recorded How hard is it for you to pa y for the very basics like food, housing, medical care, and heating? Not hard at all 12/06/2023 [place] [facility] - Occupational Stress Questionnaire Answer Date Recorded Do you feel stress - tense, restless, nervous, or anxious, or unable to sleep at night because your mind is troubled all the time - these days? Not at all 12/06/2023 Exercise Vital Sign Answer Date Recorde d On average, how many days pe r week do you engage in moderate to strenuous exercise (like a brisk walk)? 0 days 12/06/2023 On average, how many minutes do you engage in exercise at this level? 0 min 12/06/2023 Hunger Vital Sign Answer Date Recorded Within the past 12 months, y ou worried that your food would run out before you got the money to buy more. Never true 12/06/19 24 Within the past 12 months, t he food you bought just didn't last and you didn't have money to get more. Never true 12/06/2023 PRAPARE - Transportation Answer Date Re corded In the past 12 months, has l ack of transportation kept you from medical appointments or from getting medications? No 10/2023 In the past 12 months, has l ack of transportation kept you from meetings, work, or from getting things needed for daily living? No 12/06/2023 Abuse Screen Answer Date Recorded Feels Unsafe at Home or Work/School no 12/06/2023 Feels Threatened by Someone no 10/2023 Does Anyone Try to Keep You From Having Contact with Others or Doing Things Outside Your Home? no 12/06/2023 Physical Signs of Abuse Present no 12/06/2023 Housing Stability Answer Date Recorded Current Living Arrangements home 10/2023 Potentially Unsafe Housing Conditions none 12/06/2023 Family and Community Support Answer Jayro e Recorded If for any reason you need h elp with day-to-day activities such as bathing, preparing meals, shopping, managing finances, etc., do you get the help you need? I get all the help I need 12/06/2023 How often do you feel lonely or isolated from those around you? Never 12/06/2023 Employment Answer Date Recorded Do you want help finding or keeping work or a job? I do not need or want help 12/06/2023 Disabilities Answer Date Recorded Difficulty Concentrating, Remembering or Making Decisions no 12/06/2023 Difficulty Managing Errands Independently no 12/06/2023 Education Answer Date Recorded Do you want help with school or training? For example, starting or completing job training or getting a high school diploma, GED or equivalent No 12/06/2023 Preferred Language Citizen Of [place] 12/06/2023 PHQ-2 Answer Date Recorded Retired PHQ-9: Brief Depression Severity Measure Score 0 12/06/2023 Sex and Gender Information Value Date Recorded Sex Assigned at Not on file Legal Sex Male 10:41 AM EDT Gender Identity Not on file Sexual Orientation Not on file Last Filed Vital Signs Vital Sign Reading Time Taken Comments Blood Pressure 118/73 12/06/2023 11:10 AM EDT Pulse 68 12/06/2023 11:10 AM EDT Temperature 36 C (96.8 F) 12/11/2023 11:05 AM EDT Respiratory Rate 18 12/06/2023 11:10 AM EDT Oxygen Saturation 98% 12/06/2023 11:10 AM EDT Inhaled Oxygen Concentration - - Weight 86.7 kg (191 lb 2.2 oz) 12/05/2023 1:41 P M EDT Height 170.2 cm (5' 7.01 ) 12/05/2023 1:41 PM ED T Body Mass Index 29.93 12/05/2023 1:41 PM EDT Plan of Treatment Health Maintenance Due Date Last Done Comments DIABETIC EYE EXAM 1976 DIABETIC FOOT EXAM 1976 URINE MICROALBUMIN-CREATININ E RATIO (uACR) 1976 Hepatitis B (1 of 3 - 19+ 3- dose series) 1985 Pneumococcal Vaccine 50+ (1 of 2 - PCV) 1985 COLOGUARD 2011 COLON CANCER SCREENING 5 YEA R SIGMOIDOSCOPY 2011 COLONOSCOPY 2011 [address]AL CANCER SCREENING 2011 CT COLONOGRAPHY 2011 FECAL OCCULT BLOOD TEST 2011 FIT Testing (1 year) 2011 ZOSTER VACCINE (1 of 2) 2016 ANNUAL WELLNESS VISIT 12/04/2023 HEPATITIS C SCREENING 12/04/2023 COVID-19 Vaccine ( season) 12/31/202308/2021, 11/16/2020 HEMOGLOBIN A1C 05/12/2024 11/10/2023, 06/30, 07/27/2022 INFLUENZA VACCINE 01/29/2025 01/20/2023, 01/20/2022 TDAP/TD VACCINES (2 - Td or Tdap) 03/13/2033 023 Insurance [employer] MEDICARE ADVANTAGE [facility] HMO Care Teams Commercial Specialist Relationship Specialty Start Date End Date Malaika Gordon APRN [facility] [place] [address] PCP - General Family Medicine 12/04/23
--- OUTSIDE RECORDS SUMMARY | 2024-12-09 10:01 | XMS_ITS | Clinical Summary ---
Author Organization [facility] Address [address] [place] [address] Care Team Providers Care Turkish Rubber Name Role Phone Dayton Reyes MD Primary Care Provider [phone] Allergies Active Allergy Reactions Criticality Noted Date Comments Penicillins Hives,Unknown - Jenn ent states they do not know rxn details Medium 12/06/2017 Medications Aspirin Buf,CaCarb-MgCar b-MgO, 81 MG tablet 9 Active atorvastatin (Lipitor) 80 MG tablet 1 (one) time each day at the same time. Active bisoprolol (Zebeta) 10 MG tablet 2 Active clopidogrel (Plavix) 75 MG tablet TAKE 1 TABLET BY MOUTH ONCE DAILY FOR BLOOD THINNER. 2 Active doxycycline (Adoxa) 100 MG tablet Take 100 mg by mouth 2 (two) times a day. 2 Active DULoxetine (Cymbalta) [address] capsule Take 60 mg by mouth 1 (one) time each day. 2 Active ergocalciferol 1.25 MG (92476 UT) capsule TAKE 1 CAPSULE BY MOUTH TWICE A WEEK 2 Active fenofibrate (Tricor) 145 MG tablet 1 (one) time each day at the same time. 8 Active furosemide (Lasix) 20 MG tablet 2 Active gabapentin (Neurontin) 800 MG tablet Take 800 mg by mouth 3 (three) times a day. 2 Active lisinopril 20 MG tablet TAKE 1 TABLET BY MOUTH ONCE DAILY FOR HYPERTENSION. 2 Active omeprazole (PriLOSEC) [address] capsule Take 20 mg by mouth 1 (one) time each day. 2 Active B-D UF III MINI PEN NEEDLES 31G X 5 MM miscIndications: Type 2 diabetes mellitus with hyperglycemia, with long-term current use of insulin (CMS/HCC) Use to inject insulin 4+ times daily 100 each 11 2 Active Continuous Blood Gluc Water[place] Traffic Checker (FreeStyle Leonel 2 Powderly) deviceIndication s:Type 2 diabetes mellitus with hyperglycemia, with long-term current use of insulin (CMS/HCC) Use to monitor blood glucose daily DX E11.9 1 each 3 Active Blood Glucose Calibration (OneTouch Verio) High solution 3 Active Blood Glucose Monitoring Suppl (OneTouch Verio Reflect) w/Device kit 3 Active Lancet Devices (Simple Diagnostics Lancing Dev) misc 3 Active methocarbamol (Robaxin) 750 MG tablet TAKE 1 TABLET BY MOUTH ONCE DAILY AT BEDTIME NIGHTLY 3 Active metFORMIN (Glucophage) 1000 MG tabletIndication s:Type 2 diabetes mellitus with hyperglycemia, with long-term current use of insulin (CMS/HCC) Take 1 tablet (1,000 mg total) by mouth 1 (one) time each day with breakfast. 90 tablet 3 3 Active insulin lispro (HumaLOG KWIKPEN) 100 UNIT/ML injection penIndications:T ype 2 diabetes mellitus with hyperglycemia, with long-term current use of insulin (CMS/HCC) Inject 15-20 units before meals plus Correction Factor 1:20 >150 MDD 100 units 30 mL 5 3 Active insulin glargine (Lantus SoloStar, Basaglar) 100 UNIT/ML injection pen Inject 80 Units under the skin every night. 30 mL 5 3 Active Continuous Blood Gluc Sensor (FreeStyle Leonel 2 Sensor) miscIndications: Type 2 diabetes mellitus with hyperglycemia, with long-term current use of insulin (CMS/HCC) USE DIRECTED CHANGE EVERY 14 DAYS 2 each 2 4 Active empagliflozin (Jardiance) 10 MGIndications:Ty pe 2 diabetes mellitus with hyperglycemia, with long-term current use of insulin (CMS/HCC) Take 1 tablet (10 mg) by mouth 1 (one) time each day. Pt needs to schedule an appointment. No further refills 30 tablet 4 Active Active Problems Problem Noted Date Diagnosed Date Neuralgia 04/08/2022 Hyperlipidemia 04/08/2022 Essential hypertension 04/08/2022 Diabetic renal disease 04/08/2022 Chronic pain 04/08/2022 Angina concurrent with and d ue to arteriosclerosis of coronary artery 04/08/2022 Neuropathy 04/08/2022 Polyneuropathy due to type 2 diabetes mellitus 1 06/09/2021 Proteinuria 04/08/2022 Sciatica 04/08/2022 Tubular adenoma of colon 04/08/2022 Type 2 diabetes mellitus wit h hyperglycemia, with long-term current use of insulin 04/08/2022 Obesity (BMI 30-39.9) 04/08/2022 Lumbar disc herniation with radiculopathy 2017 DDD (degenerative disc disease), lumbar 12/09/19 18 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 12/08/2017 Numbness of legs 12/08/2017 Encounters Date Type Department Care Team Description 10/21/[address] [facility] [address] [place] [id number] Sowmya Dorsey, [place] Type 2 diabetes mellitus with hyperglycemia, with long-term current use of insulin ([facility]) from Last 3 Months Immunizations Immunization Administration Dates Next Due Influenza, recombinant, quad rivalent, injectable, preservative free 01/20/2022 Rachele COVID-19 Vaccine (Blue Cap) 18+ 11/17/19 21 Family History 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 Relation Name Comments Diabetes type II Brother Heart disease Brother Diabetes type II Father Heart disease Father Hypertension Father COPD Mother Diabetes type II Mother Heart disease Mother Diabetes Other 1 Hypertension Other 2 Diabetes type II Sister Relation Name Status Comments Brother Father Mother Other 1 Other 2 Sister Social History Tobacco Use Types Packs/Day Years Used Date Smoking Tobacco: Never Smokeless Tobacco: Never Tobacco Cessation:Counseling Given: Not Answered Alcohol Use Standard Drinks/Week Comments No 0 (1 standard drink = 0.6 oz pur e alcohol) Sex and Gender Information Value Date Recorded Sex Assigned at Not on file Legal Sex Male 8:51 PM EDT Gender Identity Not on file Sexual Orientation Not on file Last Filed Vital Signs Vital Sign Reading Time Taken Comments Blood Pressure 124/76 07/27/2022 12:26 PM EDT Pulse 71 07/27/2022 12:26 PM EDT Temperature - - Respiratory Rate 18 12/08/2017 9:24 AM EDT Oxygen Saturation - - Inhaled Oxygen Concentration - - Weight 95.8 kg (211 lb 3.2 oz) 07/27/2022 12:26 PM EDT Height 170.2 cm (5' 7 ) 07/27/2022 12:26 PM EDT Body Mass Index 33.08 07/27/2022 12:26 PM EDT Plan of Treatment Health Maintenance Due Date Last Done Comments [facility]-Depression Screening 1966 [facility]-HIV Screening 1966 [facility]-Hepatitis C Screening 1966 [facility]-Medicare Annual Wellness (AWV) 1966 [facility]-Infant/Child/Adol SDOH Screenings 1966 Diabetes: Dental Exam 1976 [facility]- SDOH Screenings 1984 [facility]-Adult SDOH Screenings 1984 [facility]-DTaP,Tdap,and Td Vaccines (1 - Tdap) 1985 [facility]-Hepatitis B Vaccines (1 of 3 - 19+ 3-dose series) 1985 [facility]-Pneumococcal Vaccine: 50+ Years (1 of 2 - PCV) 1985 CT Colonography 2011 Colonoscopy 2011 FIT-DNA 2011 FIT 2011 FOBT 2011 Sigmoidoscopy 2011 [facility]-Colorectal Cancer Screening 2011 [facility]-Zoster Vaccines (1 of 2) 2016 [facility]-Diabetes: Hemoglobin A1C 01/24/2023 07/27/2022 [id number] Vaccine (3 - season) 2023 06/05/2021, 11/16/2020 [facility]-Influenza Vaccine (#1) 2024 01/20/2022 [facility]-Obesity Intervention Completed 023, 07/27/2022, 07/27/2022, Additional history exists HPV Vaccines Aged Out No longer eligi ble based on patient's age to complete this topic [facility]-HIB Vaccines Aged Out No longer e ligible based on patient's age to complete this topic [facility]-Hepatitis A Vaccines Aged Out No longer eligible based on patient's age to complete this topic [facility]-IPV Vaccines Aged Out No longer e ligible based on patient's age to complete this topic [facility]-Rotavirus Vaccines Aged Out No lo nger eligible based on patient's age to complete this topic Procedures Procedure Name Priority Date/Time Associated Diagnosis Comments POCT GLYCOSYLATED HEMOGLOBIN (HGB A1C) Routine 07/27/2022 12:36 PM EDT Type 2 diabetes mellitus with hyperglycemia, with long-term current use of insulin ([facility]) from Last 3 Months or Most Recently Relevant to Health Maintenance Results * POCT glycosylated hemoglobin (Hb A1C) docked device (07/27/2022 12:36 PM EDT) POCT Hemoglobin A1C 9.9 4.4-6.6 % % [facility] Kit Lot Number n/a [facility] Kit Expiration Date n/a [facility] Blood Venous blood specimen / Unknown 07/27/2022 12:36 PM EDT Sowmya ROSE POINT OF CARE TEST EN TER/EDIT ORDERABLES Final Result Performing Organization Address City/State/[facility] Co de Phone Number [facility] [address] [place] [phone] from Last 3 Months or Most Recently Relevant to Health Maintenance Insurance [employer] [facility] MEDICAID ANTHEM MEDICARE Care Teams Turkish Rubber Relationship Specialty Start Date End Date Dayton Reyes MD [address] [place] [id number] PCP - General 09/11/20
[2024-12-09 10:27] VITALS: BP 102/65; PULSE 65; RESP 14; O2SAT 100; BMI 29.7
--- NOTE | 2024-12-09 11:14 | EXP.PAIN.SOA ---
[facility] Disclaimer: The information contained in this section may have been updated after the patient was seen, as this information can be updated by other users. 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 Amputation finger History of COVID-19 History of gastroesophageal reflux (GERD) T2DM (type 2 diabetes mellitus) Coronary artery disease Unstable angina Diastolic dysfunction Gastroesophageal reflux disease HLD (hyperlipidemia) HTN (hypertension) Surgical History History of hip replacement, total History of surgery Hx of heart artery stent X3 History of back surgery PAIN STIMULATOR Hx of colonoscopy Family History Other Coronary artery disease Heart attack Social History Smoking Status: Never smoker second hand exposure: No alcohol intake: never substance use type: denies use current occupational status: other Travel in the last 8 weeks?: None household members: spouse housing: house current occupational exposures/hazards: No caffeine: Yes PM Subjective & Objective Subjective Subjective:: Patient is a pleasant 59-year-old male who presents today for his medication refill and follow-up. He rates his pain today a 5 out of 10 and denies any new trauma or injury. He does state that he was working around his house and having to lean down onto his right side and he has been a little bit more tender in and around the rib and under his breast area since. Patient is hoping that that will ease down over time. Patient was previously submitted for his spinal cord stimulator replacement and did get approval however he does state that he is A1c was 12 and had to be canceled. Patient does state that he is on insulin and that before he had been on Mounjaro and it seemed like it was really helping however there was an issue with insurance and he had to stop taking this medication. He is currently managed with gabapentin 800 mg 3 times a day, methocarbamol 750 mg at bedtime, tramadol 50 mg twice a day and duloxetine 60 mg daily. He denies any side effects. He does state that he does not need refills on the muscle relaxer. His Yunior has been reviewed and is appropriate. Review of Systems: General: No recent weight changes, no fever, no sleep disturbances Respiratory: No cough, no shortness of air, no recurring pulmonary infections Cardiovascular/peripheral vascular: No chest pain, no palpitations, no edema, no shortness of breath Gastrointestinal: No new onset incontinence, normal bowel movements reported Genitourinary: No new onset incontinence Musculoskeletal: Chronic back pain, right chest/rib pain Psychiatric: [Normal mood/affect] Neurological: [Denies weakness in extremities], [denies balance issues] Pain at rest (0-10 scale): 5 Objective Objective:: Physical Exam: General: Alert and oriented x3, no acute distress, pleasant and cooperative Lungs: Respirations even and unlabored, symmetrical chest expansion Eyes: PERRL Musculoskeletal: Flexion and extension of lumbar [spine] somewhat guarded secondary to pain, [antalgic gait noted] Neurological: Speech clear, no gross sensory deficit Has patient had previous pain injection?: No Conservative treatment options previously tried: Home exercise plan Length of treatment: Longer than 12 weeks Meds Home Medications and Allergies Home Medications ?Medication ?Instructions ?Recorded ?Confirmed ?Type pen needle, diabetic 31 gauge x #1,200 ea 03/21/23 12/09/24 History 3/16 (BD Ultra-Fine Mini Pen Needle) empagliflozin 25 mg tablet 25 mg PO DAILY 10/08/23 12/09/24 History (Jardiance) fenofibrate nanocrystallized 145 145 mg PO DAILY 10/08/23 12/09/24 History mg tablet metformin 1,000 mg tablet 1,000 mg PO DAILY 10/08/23 12/09/24 History nitroglycerin 0.4 mg sublingual 0.4 mg sublingual Q5M PRN chest 11/09/23 12/09/24 Rx tablet (Nitrostat) pain #20 tabs atorvastatin 40 mg tablet 40 mg PO DIRECTED 12/04/23 12/09/24 History lisinopril 20 mg tablet 20 mg PO DAILY #90 tabs 03/20/24 12/09/24 Rx aspirin 81 mg tablet,delayed 81 mg PO DAILY 06/05/24 12/09/24 History release (Adult Low Dose Aspirin) bisoprolol fumarate 10 mg tablet See Rx Instructions .Route 06/24/24 12/09/24 Rx .COMPLEX #90 tabs furosemide 20 mg tablet 20 mg PO DAILY #30 tabs 04/08/25 08/11/25 Rx duloxetine 60 mg capsule,delayed 60 mg PO DAILY #30 caps 08/08/24 12/09/24 Rx release gabapentin 800 mg tablet 800 mg PO TID #90 tabs 08/08/24 12/09/24 Rx (Neurontin) methocarbamol 750 mg tablet 750 mg PO DAILY PRN no #30 tabs 08/08/24 12/09/24 Rx tramadol 50 mg tablet 50 mg PO BID PRN pain #60 tabs 08/08/24 12/09/24 Rx insulin glargine 100 unit/mL (3 1 unit SQ DAILY 10/01/24 12/09/24 History mL) subcutaneous pen (Lantus Solostar U-100 Insulin) omeprazole 40 mg capsule,delayed 40 mg PO DAILY 10/01/24 12/09/24 History release New Prescriptions to Start Prescriptions: Allergies Allergy/AdvReac Type Severity Reaction Status Date / Time Penicillins (PENICILLINS) Allergy Intermediate I-HIVES Verified 10/01/24 13:19 Assessment and Plan *Assessment and plan (1) Chronic pain syndrome: Status: Acute Category: Medical Code(s): G89.4 - Chronic pain syndrome (2) Lumbar radiculopathy: Status: Chronic Category: Medical Code(s): M54.16 - Radiculopathy, lumbar region Plan I did discuss with the patient that I will order compounded cream to see if that does help in and around his right rib area. I will refill the patient's gabapentin, tramadol and duloxetine. Patient will return to clinic in 3 months. We did discuss in future that we will continue to monitor his glucose and A1c and that if he is able to get it within better range that we can resubmit for the spinal cord stimulator replacement. The patient is agreeable to this. Risks and benefits of the medication have been explained in detail to the patient. The patient does understand the risk of dependence on the medication when given over a prolonged period. Patient has been advised of risks of oversedation with the prescribed medication. Narcan has been offered to the paitent in the event of oversedation. Patient has been advised that a family member should also be educated regarding administration of Narcan. The patient has been advised to consult with his/her primary care provider and pharmacist regarding drug-drug interaction of medications currently prescribed. Patient has been prescribed a controlled substance after being counseled on the medication, medication safety, and possible side effects. Opioid contract was reviewed and signed by the patient, and that they have agreed to all of the terms set forth by our compliance program. A UDS is needed to verify patient's compliance with our office pain contract. This is ordered based off specific treatments related to chronic pain with the potential to abuse certain medications. Patient has been instructed to contact the clinic with any concerns before the next appointment. Dr. Galarza has reviewed this note and agrees with this plan of care. This note was dictated using voice recognition software and make contain errors or omissions.
== END 2024-12-09 23:59 | disposition home or self-care (01) ==
PROVIDERS: PCP Internal Medicine Adolescent Medicine; Visit Provider Nurse Practitioner Family
DX: G89.4 Chronic pain syndrome (principal); M54.16 Radiculopathy, lumbar region; Z98.890 Other specified postprocedural states; Z79.899 Other long term (current) drug therapy
CPT/HCPCS: 99212; G0463